=== PATIENT | female | born 1945 | race Caucasian/White ===

== ENCOUNTER → 2016-09-11 | Outpatient (CLI) | payer MEDICARE ==
[2016-09-11 13:00] LABS: ANION GAP 13 (5-19); BLOOD UREA NITROGEN 8 mg/dL (7-20); CALCIUM 9.5 mg/dL (8.4-10.2); CARBON DIOXIDE 28 mmol/L (22-30); CHLORIDE 101 mmol/L (98-107); CREATININE RESULT 0.79 mg/dL (0.52-1.25); GLUCOSE 83 mg/dL (75-110); POTASSIUM 4.4 mmol/L (3.6-5.0); SODIUM 141.6 mmol/L (137-145)
[2016-09-11 19:04] LABS: FREE T3 5.52 pg/mL (2.77-5.27)
== END ==
LOC: OD 10:40
PROVIDERS: ATTEND Family Medicine
DX: E03.9 Hypothyroidism, unspecified (principal); I10 Essential (primary) hypertension
CPT/HCPCS: 36415; 80048; 84439; 84481

== ENCOUNTER → 2016-12-05 | Outpatient (CLI) | payer MEDICARE ==
[2016-12-06 09:26] LABS: ABSOLUTE EOSINOPHILS # (AUTO) 0.1 10^3/uL (0.0-0.6); ABSOLUTE LYMPHOCYTES (AUTO) 2.2 10^3/uL (0.5-4.7); ABSOLUTE MONOCYTES (AUTO) 0.4 10^3/uL (0.1-1.4); ABSOLUTE NEUT (AUTO) 4.1 10^3/uL (1.7-8.2); BASOPHILS % (AUTO) 0.4 % (0-2); EOSINOPHILS % (AUTO) 1.3 % (0-6); HEMATOCRIT 40.7 % (36.0-47.0); HEMOGLOBIN 13.9 g/dL (12.0-15.5); LYMPHOCYTES % (AUTO) 31.9 % (13-45); MEAN CORPUSCULAR HEMOGLOBIN 31.8 pg (27.0-33.4); MEAN CORPUSCULAR HGB CONC 34.3 g/dL (32.0-36.0); MEAN CORPUSCULAR VOLUME 93 fl (80-97); MONOCYTES % (AUTO) 5.8 % (3-13); RED BLOOD COUNT 4.38 10^6/uL (3.72-5.28); RED CELL DISTRIBUTION WIDTH 14.1 % (11.5-14.0); SEGMENTED NEUTROPHILS % (AUTO) 60.6 % (42-78); WHITE BLOOD COUNT 6.8 10^3/uL (4.0-10.5)
[2016-12-06 09:51] LABS: ALANINE AMINOTRANSFERASE 23 U/L (9-52); ALBUMIN 3.6 g/dL (3.5-5.0); ALKALINE PHOSPHATASE 92 U/L (38-126); ANION GAP 9 (5-19); ASPARTATE AMINO TRANSFERASE 18 U/L (14-36); BILIRUBIN,DIRECT 0.1 mg/dL (0.0-0.4); BILIRUBIN,TOTAL 0.5 mg/dL (0.2-1.3); BLOOD UREA NITROGEN 10 mg/dL (7-20); CALCIUM 9.8 mg/dL (8.4-10.2); CARBON DIOXIDE 30 mmol/L (22-30); CHLORIDE 106 mmol/L (98-107); CHOLESTEROL 153.43 mg/dL (0-200); CREATININE RESULT 0.65 mg/dL (0.52-1.25); Direct HDL 49 mg/dL (>40); GLUCOSE 99 mg/dL (75-110); MAGNESIUM 2.2 mg/dL (1.6-2.3); POTASSIUM 5.2 mmol/L (3.6-5.0); SODIUM 144.9 mmol/L (137-145); TOTAL PROTEIN 6.1 g/dL (6.3-8.2); TRIGLYCERIDES 118 mg/dL (<150)
[2016-12-06 10:08] LABS: DIRECT LDL 84 mg/dL (<100)
[2016-12-06 10:13] LABS: FREE T3 2.25 pg/mL (2.77-5.27)
== END ==
LOC: OD 14:14
PROVIDERS: ATTEND Family Medicine
DX: E78.5 Hyperlipidemia, unspecified (principal); E87.6 Hypokalemia; E03.9 Hypothyroidism, unspecified; G31.84 Mild cognitive impairment of uncertain or unknown etiology; Z51.81 Encounter for therapeutic drug level monitoring; Z79.899 Other long term (current) drug therapy
CPT/HCPCS: 36415; 80053; 80061; 82607; 83735; 84439; 84481; 84630; 85025

== ENCOUNTER → 2016-12-09 | Outpatient (CLI) | payer MEDICARE | LOC: OD 11:28 | PROVIDERS: ATTEND Family Medicine | DX: J45.51 Severe persistent asthma with (acute) exacerbation (principal) | CPT/HCPCS: 87070; 87205 ==

== ENCOUNTER 2016-12-25 09:57 | Inpatient (IN) | payer MEDICARE ==
--- NOTE | 2016-12-25 10:17 | ER Document Report ---
ED Medical Screen (RME) - General Chief Complaint: Palpitations Stated Complaint: HEART PROBLEM Notes: 71-year-old female patient sent to the emergency room from Dr. Flanagan's office to be admitted to the hospitalist service. She reports tachycardia, chest pressure, some shortness of breath. She reports Thursday morning while making coffee she became quite dizzy and off-balance and lasted about one half hours. She reports since then she has just been feeling foggy headed. She does sleep with C Pap. She does have hypothyroidism and COPD. I have greeted and performed a rapid initial assessment of this patient. A comprehensive ED assessment and evaluation of the patient, analysis of test results and completion of the medical decision making process will be conducted by additional ED providers. TRAVEL OUTSIDE OF THE [place] IN LAST 30 DAYS: No - Related Data Allergies/Adverse Reactions: doxycycline [Doxycycline] Allergy (Severe, Verified 12/25/16 10:12) VOMITING Penicillins Allergy (Verified 12/25/16 10:12) Anaphylaxis OPIATES Allergy (Severe, Uncoded 12/25/16 10:12) Anaphylaxis Past Medical History - Past Medical History Cardiac Medical History: Reports: Hx Coronary Artery Disease, Hx Hypertension Denies: Hx Heart Attack Pulmonary Medical History: Reports: Hx Asthma - on home nebs & O2, Hx COPD Denies: Hx Bronchitis, Hx Pneumonia Neurological Medical History: Denies: Hx Cerebrovascular Accident, Hx Seizures Renal/ Medical History: Denies: Hx Peritoneal Dialysis GI Medical History: Denies: Hx Hepatitis, Hx Hiatal Hernia, Hx Ulcer Musculoskeltal Medical History: Reports Hx Arthritis - generalized Infectious Medical History: Denies: Hx Hepatitis Past Surgical History: Reports: Hx Mastectomy - DOUBLE, NO NEED TO AVOID ARM. Denies: Hx Hysterectomy, Hx Open Heart Surgery, Hx Pacemaker - Immunizations Hx Diphtheria, Pertussis, Tetanus Vaccination: No Physical Exam - Vital signs Vitals: Temp Pulse Resp BP Pulse Ox 97.7 F 93 22 H 118/71 93 12/25/16 10:10 12/25/16 10:10 12/25/16 10:10 12/25/16 10:10 12/25/16 10:10 Course - Vital Signs Vital signs: Temp Pulse Resp BP Pulse Ox 97.7 F 93 22 H 118/71 93 12/25/16 10:10 12/25/16 10:10 12/25/16 10:10 12/25/16 10:10 12/25/16 10:10
[2016-12-25 10:50] LABS: APPEARANCE,URINE CLEAR; BILIRUBIN,URINE NEGATIVE (NEGATIVE); GLUCOSE, URINE NEGATIVE (NEGATIVE); KETONES,URINE NEGATIVE (NEGATIVE); LEUKOCYTE ESTERASE,URINE SMALL (NEGATIVE); NITRITE,URINE NEGATIVE (NEGATIVE); PROTEIN,URINE NEGATIVE (NEGATIVE); URINE SPECIFIC GRAVITY 1.005; UROBILINOGEN,URINE NEGATIVE mg/dL (<2.0)
[2016-12-25 10:52] LABS: ABSOLUTE LYMPHOCYTES (AUTO) 2.8 10^3/uL (0.5-4.7); ABSOLUTE MONOCYTES (AUTO) 0.9 10^3/uL (0.1-1.4); ABSOLUTE NEUT (AUTO) 7.3 10^3/uL (1.7-8.2); BASOPHILS % (AUTO) 0.3 % (0-2); EOSINOPHILS % (AUTO) 0.3 % (0-6); HEMATOCRIT 44.3 % (36.0-47.0); HEMOGLOBIN 15.7 g/dL (12.0-15.5); HGB HCT DIFFERENCE 2.8; LYMPHOCYTES % (AUTO) 25.1 % (13-45); MEAN CORPUSCULAR HGB CONC 35.4 g/dL (32.0-36.0); MEAN CORPUSCULAR VOLUME 90 fl (80-97); MONOCYTES % (AUTO) 8.2 % (3-13); RED CELL DISTRIBUTION WIDTH 13.8 % (11.5-14.0); SEGMENTED NEUTROPHILS % (AUTO) 66.1 % (42-78); WHITE BLOOD COUNT 11.1 10^3/uL (4.0-10.5)
[2016-12-25 11:07] LABS: ALANINE AMINOTRANSFERASE 26 U/L (9-52); ALBUMIN 3.8 g/dL (3.5-5.0); ALKALINE PHOSPHATASE 110 U/L (38-126); ANION GAP 13 (5-19); ASPARTATE AMINO TRANSFERASE 22 U/L (14-36); BILIRUBIN,DIRECT 0.1 mg/dL (0.0-0.4); BILIRUBIN,TOTAL 0.6 mg/dL (0.2-1.3); BLOOD UREA NITROGEN 16 mg/dL (7-20); CALCIUM 9.1 mg/dL (8.4-10.2); CARBON DIOXIDE 33 mmol/L (22-30); CHLORIDE 78 mmol/L (98-107); CREATININE RESULT 0.68 mg/dL (0.52-1.25); GLUCOSE 96 mg/dL (75-110); SODIUM 124.2 mmol/L (137-145); TOTAL PROTEIN 6.3 g/dL (6.3-8.2)
[2016-12-25 11:09] LABS: POTASSIUM 2.6 mmol/L (3.6-5.0)
[2016-12-25 11:22] LABS: FREE T3 5.45 pg/mL (2.77-5.27)
[2016-12-25] MEDS ORDERED: POTASSI CL 40 MEQ/NS 1L 1,000 ML IV ONE (11:40)
--- NOTE | 2016-12-25 11:48 | ER Document Report ---
ED General - General Chief Complaint: Palpitations Stated Complaint: HEART PROBLEM Notes: Patient was referred here by her primary care provider, Dr. Flanagan, for admission for several problems. Patient says that she's not felt well over this past weekend and then on Thursday developed a rapid pulse. At times, it has gotten as high as 123. She says that she's felt "drunk, goofy headed", nauseated, blurry vision. She went to her primary care provider's office this morning and was referred here. Patient does have a history of low sodiums and low potassiums and is on potassium supplement and extra sodium in her diet. She 's felt nauseated but has not vomited. Had one episode of diarrhea on Thursday. She's having chest pressure since Thursday. It's a fairly constant mid anterior chest sensation, but not actual pain. Has had some cough and felt short of breath. Patient does have COPD and continues to smoke slightly less than a pack of cigarettes daily. She is unaware of any fever. Was treated with an antibiotic and prednisone for a respiratory illness and completed that medication on Thursday. TRAVEL OUTSIDE OF THE [place] IN LAST 30 DAYS: No - Related Data Allergies/Adverse Reactions: doxycycline [Doxycycline] Allergy (Severe, Verified 12/25/16 10:12) VOMITING Penicillins Allergy (Verified 12/25/16 10:12) Anaphylaxis OPIATES Allergy (Severe, Uncoded 12/25/16 10:12) Anaphylaxis Past Medical History - Social History Smoking Status: Current Every Day Smoker Chew tobacco use (# tins/day): No Frequency of alcohol use: None Drug Abuse: None Family History: Reviewed & Not Pertinent Patient has suicidal ideation: No Patient has homicidal ideation: No - Past Medical History Cardiac Medical History: Reports: Hx Coronary Artery Disease, Hx Hypertension Denies: Hx Heart Attack Pulmonary Medical History: Reports: Hx Asthma - on home nebs & O2, Hx Bronchitis , Hx COPD Denies: Hx Pneumonia Neurological Medical History: Denies: Hx Cerebrovascular Accident, Hx Seizures Malignancy Medical History: Reports: Hx Breast Cancer, Hx Colorectal Cancer, Other - Vulvar cancer Musculoskeltal Medical History: Reports Hx Arthritis - generalized Psychiatric Medical History: Reports: Hx Depression Past Surgical History: Reports: Hx Cholecystectomy, Hx Mastectomy - DOUBLE, NO NEED TO AVOID ARM, Other - History of surgery for vulvar and colon cancer, currently cancer free - Immunizations Hx Diphtheria, Pertussis, Tetanus Vaccination: No Hx Pneumococcal Vaccination: 09/07/11 Review of Systems - Review of Systems Notes: REVIEW OF SYSTEMS: CONSTITUTIONAL : Denies fever. EENT: Denies eye, ear, nose or mouth or throat pain or other symptoms. CARDIOVASCULAR: See history of present illness. RESPIRATORY: See history of present illness. GASTROINTESTINAL: Denies abdominal pain or vomiting, or diarrhea except for 1 episode Thursday.. GENITOURINARY: Denies difficulty or painful urinating, blood in urine. MUSCULOSKELETAL: Denies back or neck pain. Denies joint pain or swelling. SKIN: Denies rash or skin lesions. NEUROLOGICAL: Denies LOC or altered mental status. Denies headache. Denies sensory loss or motor deficits. See history of present illness. ALL OTHER SYSTEMS REVIEWED AND NEGATIVE. Physical Exam - Vital signs Vitals: Temp Pulse Resp BP Pulse Ox 97.7 F 93 22 H 118/71 93 12/25/16 10:10 12/25/16 10:10 12/25/16 10:10 12/25/16 10:10 12/25/16 10:10 Interpretation: Normal - Notes Notes: PHYSICAL EXAMINATION: GENERAL: Well-appearing, in no acute distress. Vital signs are all normal. Heart rate 94 on the monitor during my exam. HEAD: Atraumatic, normocephalic. NECK: Normal range of motion, supple. LUNGS: Breath sounds show diffuse mild expiratory wheezes. HEART: Regular rate and rhythm without murmurs. ABDOMEN: Soft, nontender. No guarding or rebound. BACK: No tenderness throughout entire back. EXTREMITIES: Normal range of motion without pain. Trace pretibial pitting edema bilaterally. NEUROLOGICAL: Normal speech. Normal sensory, motor, and reflex exams. Awake, alert, and oriented x3. Cranial nerves normal. PSYCH: Normal mood, normal affect. SKIN: Warm, dry, no rashes. Course - Re-evaluation Re-evalutation: 12/25/16 11:55 Labs show hyponatremia and hypokalemia and I will be calling the hospitalist to admit patient. 12/25/16 12:[address] Iqbal, on-call hospitalist, and he will admit the patient for IV fluids and replenishment of her sodium and potassium. - Vital Signs Vital signs: Temp Pulse Resp BP Pulse Ox 97.7 F 93 22 H 118/71 93 12/25/16 10:10 12/25/16 10:10 12/25/16 10:10 12/25/16 10:10 12/25/16 10:10 - Laboratory Result Diagrams: 12/25/16 10:19 12/25/16 10:19 Laboratory results interpreted by me: 12/25/16 12/25/16 12/25/16 10:19 10:19 10:19 WBC 11.1 H Hgb 15.7 H Sodium 124.2 L Potassium 2.6 L* Chloride 78 L Carbon Dioxide 33 H Free T3 pg/mL 5.45 H Ur Leukocyte Esterase 12/25/16 10:19 WBC Hgb Sodium Potassium Chloride Carbon Dioxide Free T3 pg/mL Ur Leukocyte Esterase SMALL H - Diagnostic Test Radiology results interpreted by me: 12/25/16 11:55 Chest x-ray shows some basilar atelectasis. Findings consistent with COPD. No acute processes noted. - EKG Interpretation by Ne EKG shows normal: Sinus rhythm - At 90 Rate: Normal Rhythm: NSR, APC's - Few Additional EKG results interpreted by me: 12/25/16 11:54 EKG does not show any acute changes. Discharge - Discharge Clinical Impression: Palpitations, Hyponatremia, Hypokalemia Disposition: ADMITTED INPATIENT Admitting Provider: Hospitalist Unit Admitted: Telemetry
[2016-12-25] MEDS ORDERED: AZTREONAM INJ 1 GM VIAL IV SCH (14:15)
[2016-12-25] MEDS ORDERED: NORMAL SALINE 1000 ML 1,000 ML IV PRN (14:18)
[2016-12-25] MEDS ORDERED: LEVALBUTEROL HCL NEB 1.25 MG/3 ML AMPUL NEB PRN (14:18)
[2016-12-25] MEDS ORDERED: ACETAMINOPHEN 325 MG TABLET PO PRN (14:18)
[2016-12-25] MEDS ORDERED: ONDANSETRON HCL INJ/PF 4 MG/2 ML SDV IV PRN (14:24)
[2016-12-25] MEDS ORDERED: TIOTROPIUM BROMIDE DPI 5 CAP/KIT (18 MCG/CAP) IH ONE (15:00)
[2016-12-25] MEDS ORDERED: AZTREONAM 1 GM in DEXTROSE 5%-WATER 50 ML IV ONE (15:00)
[2016-12-25] MEDS ORDERED: FLUTICASONE/SALMETEROL DISKUS 250-50 MCG/DOSE IH ONE (15:30)
[2016-12-25] MEDS: POTASSIUM CHLORIDE 10 MEQ TABLET.SA PO SCH ×2 (15:49→20:59)
--- NOTE | 2016-12-25 15:54 | PDOC H&P ---
History of Present Illness Admission Date/PCP: 12/25/16 14:18 SHERMAN MCCLAIN MD Patient complains of: Palpitations History of Present Illness: JOHAN WREN is a 71 year old female with history of COPD who just completed a course of treatment for respiratory tract infection with antibiotic last weekend presents to the hospital because of palpitation. Patient had an episode of diarrhea last weekend that eventually resolved by itself. 4 days ago patient started to develop palpitation, generalized weakness, body malaise and fatigue, lightheadedness and dizziness upon standing up. Denies any persistence of diarrhea. There is no dysuria urgency or frequency but there is nausea without vomiting. No chills or fever associated. Occasional mild headaches. No shortness of breath, no chest pain. Patient started to develop palpitation. Patient presented to her primary care physician where she was sent to the hospital, found to be hypokalemic and hyponatremic. WBC is mildly elevated. Patient initially has sinus tachycardia as reported, intravenous fluid was given, heart rate has normalized. Patient was then referred for admission. Past Medical History Past Medical History: Medication reconciliation pending verification from the patient's pharmacist. Cardiac Medical History: Reports: Hypertension, Other - Valvular heart disease Denies: Myocardial Infarction Pulmonary Medical History: Reports: Asthma - on home nebs & O2, Bronchitis, Chronic Obstructive Pulmonary Disease (COPD), Respiratory Failure - Chronic hypoxemic on home oxygen, Sleep Apnea - On CPAP, Other - Lung nodule Denies: Pneumonia Neurological Medical History: Reports: Other - Depression Denies: Seizures Endocrine Medical History: Reports: Hypothyroidism Malignancy Medical History: Reports: Breast Cancer, Colorectal Cancer, Other - Vulvar cancer GI Medical History: Denies: Hepatitis, Hiatal Hernia Musculoskeltal Medical History: Reports: Arthritis - generalized Psychiatric Medical History: Reports: Depression Hematology: Denies: Anemia, Sickle Cell Disease Past Surgical History Past Surgical History: Reports: Cholecystectomy, Mastectomy - DOUBLE, NO NEED TO AVOID ARM, Other - History of surgery for vulvar and colon cancer, currently cancer free Denies: Amputation, Hysterectomy, Pacemaker Social History Information Source: Patient Smoking Status: Current Every Day Smoker Frequency of Alcohol Use: None Hx Recreational Drug Use: No Drugs: None Hx Prescription Drug Abuse: No - Advance Directive Resuscitation Status: Full Code Family History Family History: CAD Parental Family History Reviewed: Yes Children Family History Reviewed: Yes Sibling(s) Family History Reviewed.: Yes Medication/Allergy Home Medications: Albuterol Sulfate [Albuterol Sulfate 2.5mg/3 mL] 1 vial NEB QID 12/25/16 Albuterol Sulfate [Proair HFA Inhalation Aerosol 8.5 gm MDI] 2 puff IH Q4H 12/25 Arformoterol Tartrate [Brovana Inhalation Solution 15 mcg/2 mL] 1 vial NEB BID 12/25/16 Ascorbic Acid [Vitamin C 500 mg Tablet] 1 tab PO DAILY 12/25/16 Aspirin [Aspirin EC] 81 mg PO DAILY 12/25/16 Citalopram Hydrobromide [Celexa 20 mg Tablet] 20 mg PO DAILY 12/25/16 Docusate Sodium [Colace 100 mg Capsule] 100 mg PO BID 12/25/16 Furosemide [Lasix] 40 mg PO DAILY 12/25/16 Hydrochlorothiazide 25 mg PO DAILY 12/25/16 Losartan Potassium [Cozaar 25 mg Tablet] 25 mg PO DAILY 12/25/16 Naproxen 500 mg PO BIDP PRN 12/25/16 Nortriptyline HCl [Pamelor 25 mg Capsule] 25 mg PO QHS 12/25/16 [place]-3 Fatty Acids/Fish Oil [[place] 3 Fish Oil Softgel] 1 cap PO DAILY 12/25/16 Pravastatin Sodium [Pravachol] 40 mg PO QHS 12/25/16 Thyroid,Pork [Echo Thyroid] 30 mg PO DAILY 12/25/16 Thyroid,Pork [Echo Thyroid] 120 mg PO DAILY 12/25/16 Vitamin E [Natural Vitamin E] 400 mg PO DAILY 12/25/16 Allergies/Adverse Reactions: doxycycline [Doxycycline] Allergy (Severe, Verified 12/25/16 10:12) VOMITING Opioids - Morphine Analogues Allergy (Severe, Verified 12/25/16 15:03) Anaphylaxis Penicillins Allergy (Verified 12/25/16 10:12) Anaphylaxis Review of Systems Constitutional: PRESENT: weakness - Generalized. ABSENT: chills, fever(s), headache(s), weight gain, weight loss Eyes: ABSENT: visual disturbances Ears: ABSENT: hearing changes Nose, Mouth, and Throat: ABSENT: mouth pain, sore throat Cardiovascular: PRESENT: dyspnea on exertion - Chronic, edema - Chronic bilateral, palpitations. ABSENT: chest pain, orthropnea Respiratory: PRESENT: cough - Chronic cough not more than usual, dyspnea - Chronic on home oxygen, other - Chronic wheezing. ABSENT: hemoptysis, sputum Gastrointestinal: PRESENT: nausea. ABSENT: abdominal pain, constipation, diarrhea, hematemesis, hematochezia, melena, vomiting Genitourinary: ABSENT: difficulty urinating, dysuria, hematuria Musculoskeletal: ABSENT: joint swelling Integumentary: ABSENT: pruritus, rash, wounds Neurological: PRESENT: dizziness - Understanding. ABSENT: abnormal gait, abnormal speech, confusion, focal weakness, syncope Psychiatric: ABSENT: anxiety, depression, homidical ideation, suicidal ideation Endocrine: PRESENT: polyphagia. ABSENT: cold intolerance, heat intolerance, polydipsia, polyuria Hematologic/Lymphatic: ABSENT: easy bleeding, easy bruising Physical Exam Vital Signs: Temp Pulse Resp BP Pulse Ox 98.2 F 92 20 101/64 95 12/25/16 14:10 12/25/16 14:10 12/25/16 14:10 12/25/16 14:10 12/25/16 14:10 General appearance: PRESENT: no acute distress, morbidly obese Head exam: PRESENT: atraumatic, normocephalic Eye exam: PRESENT: conjunctiva pink, EOMI, PERRLA. ABSENT: scleral icterus Ear exam: PRESENT: normal external ear exam. ABSENT: drainage Mouth exam: PRESENT: dry mucosa, neck supple, tongue midline Throat exam: ABSENT: post pharyngeal erythema, tonsillar erythema, tonsillar exudate Neck exam: ABSENT: carotid bruit, JVD, lymphadenopathy, thyromegaly Respiratory exam: PRESENT: decreased breath sounds - Bilateral, wheezes - Mild expiratory, other - Air entry is fair. ABSENT: rales, rhonchi Cardiovascular exam: PRESENT: RRR, +S1, +S2. ABSENT: diastolic murmur, gallop, rubs, systolic murmur Pulses: PRESENT: normal dorsalis pedis pul Vascular exam: PRESENT: normal capillary refill GI/Abdominal exam: PRESENT: normal bowel sounds, soft. ABSENT: distended - Obese, guarding, mass, organolmegaly, rebound, tenderness Rectal exam: PRESENT: deferred Extremities exam: PRESENT: full ROM, other - Trace lower extremity edema bilateral. ABSENT: calf tenderness, clubbing Neurological exam: PRESENT: alert, awake, oriented to person, oriented to place , oriented to time, oriented to situation Psychiatric exam: PRESENT: appropriate affect, normal mood. ABSENT: homicidal ideation, suicidal ideation Skin exam: PRESENT: dry, intact, warm. ABSENT: cyanosis, rash Results Impressions: Chest X-Ray 12/25/16 10:13 IMPRESSION: Linear atelectasis in the left base. Hyperexpansion. Assessment & Plan - Diagnosis (1) Hyponatremia Is this a current diagnosis for this admission?: Yes (2) Hypokalemia Is this a current diagnosis for this admission?: Yes (3) Palpitations Is this a current diagnosis for this admission?: Yes (4) Dehydration Is this a current diagnosis for this admission?: Yes (5) Urinary tract infection Qualifiers: Urinary tract infection type: site unspecified Hematuria presence: without hematuria Qualified Code(s): N39.0 - Urinary tract infection, site not specified Is this a current diagnosis for this admission?: Yes (6) Hypothyroidism (acquired) Is this a current diagnosis for this admission?: Yes (7) Obstructive sleep apnea Is this a current diagnosis for this admission?: Yes (8) COPD (chronic obstructive pulmonary disease) Qualifiers: COPD type: unspecified COPD Qualified Code(s): J44.9 - Chronic obstructive pulmonary disease, unspecified Is this a current diagnosis for this admission?: Yes (9) Chronic hypoxemic respiratory failure Is this a current diagnosis for this admission?: Yes (10) Valvular heart disease Is this a current diagnosis for this admission?: Yes (11) Anxiety and depression Is this a current diagnosis for this admission?: Yes (12) Essential hypertension Is this a current diagnosis for this admission?: Yes (13) Lung nodule Is this a current diagnosis for this admission?: Yes - Time Time Spent: 30 to 50 Minutes - Inpatient Certification Based on my medical assessment, after consideration of the patient's comorbidities, presenting symptoms, or acuity I expect that the services needed warrant INPATIENT care.: Yes I certify that my determination is in accordance with my understanding of Medicare's requirements for reasonable and necessary INPATIENT services [42 CFR 412.3e].: Yes Medical Necessity: Need Close Monitoring Due to Risk of Patient Decompensation, Need For IV Fluids, Need For Continuous Telemetry Monitoring, Risk of Complication if Not Cared For in Hospital 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 We are going to hydrate the patient with normal saline. We will replace potassium. Obtain a urine culture and begin intravenous antibiotic over for gram-negative organisms. In the meantime I will continue her supplemental oxygen and try her on Advair. Continue Spiriva. When necessary Xopenex for wheezing. We will check TSH and free T4. DVT prophylaxis with Lovenox will be placed. We will hold her antihypertensive medications. Diuretics in combination with ARB likely contributing to her hyponatremia. We will monitor. Discussed with the patient that antihypertensive medication may need to be discontinued. DVT prophylaxis with Lovenox will be placed. Further testing depends on the initial evaluation as outlined above.
[2016-12-25] MEDS: LANSOPRAZOLE 30 MG TAB.RAP.DR PO SCH (17:51)
[2016-12-25] MEDS: DOCUSATE SODIUM 100 MG CAPSULE PO SCH (17:52)
--- NOTE | 2016-12-25 20:04 | EKG REPORT ---
SEVERITY:- BORDERLINE ECG - SINUS RHYTHM ATRIAL PREMATURE COMPLEX LEFT AXIS DEVIATION LOW VOLTAGE IN FRONTAL LEADS BORDERLINE T ABNORMALITIES, ANT-LAT LEADS : Confirmed by: Niki Sarabia MD 25-Dec-2016 20:04:03
[2016-12-25] MEDS: AZTREONAM 1 GM in DEXTROSE 5%-WATER 50 ML IV SCH (22:26)
[2016-12-26] MEDS: POTASSIUM CHLORIDE 10 MEQ TABLET.SA PO SCH (00:24)
[2016-12-26 05:28] LABS: HEMATOCRIT 39.4 % (36.0-47.0); HEMOGLOBIN 13.7 g/dL (12.0-15.5); HGB HCT DIFFERENCE 1.7; MEAN CORPUSCULAR HEMOGLOBIN 31.8 pg (27.0-33.4); MEAN CORPUSCULAR HGB CONC 34.8 g/dL (32.0-36.0); MEAN CORPUSCULAR VOLUME 91 fl (80-97); RED BLOOD COUNT 4.31 10^6/uL (3.72-5.28); WHITE BLOOD COUNT 9.3 10^3/uL (4.0-10.5)
[2016-12-26 05:59] LABS: ANION GAP 9 (5-19); BLOOD UREA NITROGEN 16 mg/dL (7-20); CALCIUM 8.8 mg/dL (8.4-10.2); CARBON DIOXIDE 33 mmol/L (22-30); CHLORIDE 92 mmol/L (98-107); CREATININE RESULT 0.67 mg/dL (0.52-1.25); GLUCOSE 101 mg/dL (75-110); PHOSPHORUS 2.6 mg/dL (2.5-4.5); SODIUM 133.9 mmol/L (137-145)
[2016-12-26 06:22] LABS: POTASSIUM 4.2 mmol/L (3.6-5.0)
[2016-12-26] MEDS: LANSOPRAZOLE 30 MG TAB.RAP.DR PO SCH (07:09)
[2016-12-26] MEDS: AZTREONAM 1 GM in DEXTROSE 5%-WATER 50 ML IV SCH ×2 (07:10→14:24)
[2016-12-26] MEDS ORDERED: ENOXAPARIN SODIUM INJ 40 MG/0.4 ML DISP.SYRIN SUBCUT SCH (08:00)
[2016-12-26] MEDS ORDERED: FLUTICASONE/SALMETEROL DISKUS 250-50 MCG/DOSE IH SCH (10:00)
[2016-12-26] MEDS ORDERED: TIOTROPIUM BROMIDE DPI 5 CAP/KIT (18 MCG/CAP) IH SCH (10:00)
[2016-12-26] MEDS: DOCUSATE SODIUM 100 MG CAPSULE PO SCH (11:07)
--- NOTE | 2016-12-26 11:38 | PDOC DISCHARGE SUMMARY ---
General - Admit/Disc Date/PCP Admission Date/Primary Care Provider: 12/25/16 14:18 SHERMAN MCCLAIN MD Discharge Date: 12/26/16 - Discharge Diagnosis (1) Hyponatremia Is this a current diagnosis for this admission?: Yes (2) Hypokalemia Is this a current diagnosis for this admission?: Yes (3) Palpitations Is this a current diagnosis for this admission?: Yes (4) Dehydration Is this a current diagnosis for this admission?: Yes (5) Urinary tract infection Is this a current diagnosis for this admission?: Yes (6) Hypothyroidism (acquired) Is this a current diagnosis for this admission?: Yes (7) Obstructive sleep apnea Is this a current diagnosis for this admission?: Yes (8) COPD (chronic obstructive pulmonary disease) Is this a current diagnosis for this admission?: Yes (9) Chronic hypoxemic respiratory failure Is this a current diagnosis for this admission?: Yes (10) Valvular heart disease Is this a current diagnosis for this admission?: Yes (11) Anxiety and depression Is this a current diagnosis for this admission?: Yes (12) Essential hypertension Is this a current diagnosis for this admission?: Yes (13) Lung nodule Is this a current diagnosis for this admission?: Yes - Additional Information Resuscitation Status: Full Code Discharge Diet: Cardiac Discharge Activity: Activity As Tolerated, Balance Activity w/Rest Home Medications: Albuterol Sulfate [Albuterol Sulfate 2.5mg/3 mL] 1 vial NEB QID 12/25/16 Albuterol Sulfate [Proair HFA Inhalation Aerosol 8.5 gm MDI] 2 puff IH Q4H 12/25 Arformoterol Tartrate [Brov[place] Inhalation Solution 15 mcg/2 mL] 1 vial NEB BID 12/25/16 Ascorbic Acid [Vitamin C 500 mg Tablet] 1 tab PO DAILY 12/25/16 Aspirin [Aspirin EC] 81 mg PO DAILY 12/25/16 Citalopram Hydrobromide [Celexa 20 mg Tablet] 20 mg PO DAILY 12/25/16 Docusate Sodium [Colace 100 mg Capsule] 100 mg PO BID 12/25/16 Furosemide [Lasix] 40 mg PO DAILY 12/25/16 Naproxen 500 mg PO BIDP PRN 12/25/16 Nortriptyline HCl [Pamelor 25 mg Capsule] 25 mg PO QHS 12/25/16 [place]-3 Fatty Acids/Fish Oil [[place] 3 Fish Oil Softgel] 1 cap PO DAILY 12/25/16 Pravastatin Sodium [Pravachol] 40 mg PO QHS 12/25/16 Thyroid,Pork [[place] Thyroid] 30 mg PO DAILY 12/25/16 Thyroid,Pork [[place] Thyroid] 120 mg PO DAILY 12/25/16 Vitamin E [Natural Vitamin E] 400 mg PO DAILY 12/25/16 Ciprofloxacin HCl [Cipro 500 mg Tablet] 500 mg PO BID #6 tablet 12/26/16 Metoprolol Tartrate [Lopressor 25 mg Tablet] 25 mg PO Q12 #60 tab 12/26/16 Additional Information: 1. Follow up final report of urine cultures outpatient with primary care physician. 2. Return to the emergency room if symptoms recur. 3. Continue home oxygen and CPAP. History of Present Illness Patient complains of: Palpitation, generalized malaise History of Present Illness: JOHAN WREN is a 71 year old female with history of COPD who just completed a course of treatment for respiratory tract infection with antibiotic last weekend presents to the hospital because of palpitation. Patient had an episode of diarrhea last weekend that eventually resolved by itself. 4 days ago patient started to develop palpitation, generalized weakness, body malaise and fatigue, lightheadedness and dizziness upon standing up. Denies any persistence of diarrhea. There is no dysuria urgency or frequency but there is nausea without vomiting. No chills or fever associated. Occasional mild headaches. No shortness of breath, no chest pain. Patient started to develop palpitation. Patient presented to her primary care physician where she was sent to the hospital, found to be hypokalemic and hyponatremic. WBC is mildly elevated. Patient initially has sinus tachycardia as reported, intravenous fluid was given, heart rate has normalized. Patient was then referred for admission. Hospital Course Hospital Course: The patient was admitted to telemetry. TSH was high, but free T4 is normal. Patient had short episodes of tachycardia that responded with hydration. Patient noted to have hyponatremia as well as hypokalemia which replacement was given. Hyponatremia significantly improve with normal saline, hypokalemia normalized with replacement. She was noted to have a urinary tract infection growing gram-positive cocci in pairs. No prior history of recurrent UTI. Patient was started on Azactam. The following morning the patient is significantly better. Patient wanted to go home, continue treatment at home and follow-up with primary care physician. Patient was advised to discontinue the hydrochlorothiazide as well as losartan. Patient wants to continue the Lasix for her edema, treated recommendation of frequent follow-up of electrolytes. She agreed to try beta francis for hypertension and palpitation and follow-up blood pressure on an outpatient basis. Physical Exam Vital Signs: Temp Pulse Resp BP Pulse Ox 97.8 F 84 22 H 120/55 L 99 12/26/16 08:26 12/26/16 08:26 12/26/16 08:26 12/26/16 08:26 12/26/16 08:26 Intake & Output 12/25/16 12/26/16 12/27/16 06:59 06:59 06:59 Intake Total 1924 Balance 1924 Weight 110.3 kg General appearance: PRESENT: no acute distress, cooperative, obese Eye exam: PRESENT: EOMI Mouth exam: PRESENT: moist, neck supple Neck exam: ABSENT: JVD Respiratory exam: PRESENT: clear to auscultation maria a Cardiovascular exam: PRESENT: RRR. ABSENT: gallop GI/Abdominal exam: PRESENT: soft. ABSENT: distended, tenderness Extremities exam: PRESENT: other - Trace edema Neurological exam: PRESENT: alert, awake, oriented to situation Skin exam: PRESENT: dry, warm. ABSENT: cyanosis Results Laboratory Results: 12/26/16 05:18 12/26/16 05:18 12/26/16 12/26/16 05:18 05:18 WBC 9.3 RBC 4.31 Hgb 13.7 Hct 39.4 MCV 91 MCH 31.8 MCHC 34.8 RDW 14.0 Plt Count 176 Sodium 133.9 L Potassium 4.2 D Chloride 92 L Carbon Dioxide 33 H Anion Gap 9 BUN 16 Creatinine 0.67 Est GFR ( Amer) > 60 Est GFR (Non-Af Amer) > 60 Glucose 101 Calcium 8.8 Phosphorus 2.6 Impressions: Chest X-Ray 12/25/16 10:13 IMPRESSION: Linear atelectasis in the left base. Hyperexpansion. Qualifiers PATEINT BEING DISCHARGED WITH ANY OF THE FOLLOWING DIAGNOSIS?: No Plan Discharge Plan: Follow-up with primary care physician in one week. Time Spent: Less than 30 Minutes
[2016-12-26 15:01] VITALS: BP 109/59
== END 2016-12-26 15:02 | disposition home or self-care (01) | DRG 641 ==
LOC: ER 09:57 → UNDOADMIN 13:38 → EH 13:38 → 4S 14:18 → EH 14:45 → 4S 14:45
PROC: 5A09357 Assistance with Respiratory Ventilation, Less than 24 Consecutive Hours, Continuous Positive Airway Pressure (ICD-10-PCS; principal; 2016-12-25)
PROC: 3E0F73Z Introduction of Anti-inflammatory into Respiratory Tract, Via Natural or Artificial Opening (ICD-10-PCS; 2016-12-25)
DX: E87.1 Hypo-osmolality and hyponatremia (principal); N39.0 Urinary tract infection, site not specified; J96.11 Chronic respiratory failure with hypoxia; I38 Endocarditis, valve unspecified; I95.1 Orthostatic hypotension; E87.6 Hypokalemia; E86.0 Dehydration; R00.2 Palpitations; E03.9 Hypothyroidism, unspecified; G47.33 Obstructive sleep apnea (adult) (pediatric); J44.9 Chronic obstructive pulmonary disease, unspecified; F41.9 Anxiety disorder, unspecified; F32.9 Major depressive disorder, single episode, unspecified; R91.1 Solitary pulmonary nodule; I10 Essential (primary) hypertension; M19.90 Unspecified osteoarthritis, unspecified site; F17.200 Nicotine dependence, unspecified, uncomplicated; Z99.81 Dependence on supplemental oxygen; Z79.899 Other long term (current) drug therapy; Z85.3 Personal history of malignant neoplasm of breast; Z85.038 Personal history of other malignant neoplasm of large intestine; Z85.89 Personal history of malignant neoplasm of other organs and systems; Z90.49 Acquired absence of other specified parts of digestive tract; Z90.13 Acquired absence of bilateral breasts and nipples; Z88.0 Allergy status to penicillin; Z88.3 Allergy status to other anti-infective agents; Z88.6 Allergy status to analgesic agent
CPT/HCPCS: 36415; 71010; 80048; 80053; 81001; 83735; 83880; 84100; 84439; 84443; 84481; 85025; 85027; 85379; 87086; 87088; 87186; 93005; 93010; 94660; 96365; 99285; J1650; J3480; J3490; J7030

== ENCOUNTER → 2017-01-02 | Outpatient (CLI) | payer MEDICARE ==
[2017-01-02 10:07] LABS: ANION GAP 13 (5-19); BLOOD UREA NITROGEN 11 mg/dL (7-20); CALCIUM 9.3 mg/dL (8.4-10.2); CARBON DIOXIDE 31 mmol/L (22-30); CHLORIDE 102 mmol/L (98-107); CREATININE RESULT 0.73 mg/dL (0.52-1.25); GLUCOSE 89 mg/dL (75-110); POTASSIUM 4.1 mmol/L (3.6-5.0); SODIUM 145.6 mmol/L (137-145)
== END ==
LOC: OD 08:02
PROVIDERS: ATTEND Family Medicine
DX: D35.00 Benign neoplasm of unspecified adrenal gland (principal); E87.1 Hypo-osmolality and hyponatremia
CPT/HCPCS: 36415; 80048; 82533

== ENCOUNTER → 2017-01-08 | Outpatient (CLI) | payer MEDICARE ==
[2017-01-08 12:54] LABS: ANION GAP 16 (5-19); BLOOD UREA NITROGEN 10 mg/dL (7-20); CARBON DIOXIDE 26 mmol/L (22-30); CHLORIDE 102 mmol/L (98-107); CREATININE RESULT 0.83 mg/dL (0.52-1.25); GLUCOSE 140 mg/dL (75-110); POTASSIUM 4.6 mmol/L (3.6-5.0); SODIUM 144.2 mmol/L (137-145)
== END ==
LOC: OD 11:24
PROVIDERS: ATTEND Family Medicine
DX: E87.1 Hypo-osmolality and hyponatremia (principal)
CPT/HCPCS: 36415; 80048

== ENCOUNTER → 2017-01-29 | Outpatient (CLI) | payer MEDICARE ==
[2017-01-29 09:46] LABS: POTASSIUM 4.1 mmol/L (3.6-5.0); SODIUM 140.5 mmol/L (137-145)
== END ==
LOC: OD 08:27
PROVIDERS: ATTEND Family Medicine
DX: E87.1 Hypo-osmolality and hyponatremia (principal)
CPT/HCPCS: 36415; 80051

== ENCOUNTER → 2017-03-02 | Outpatient (CLI) | payer MEDICARE ==
[2017-03-02 13:25] LABS: ALANINE AMINOTRANSFERASE 22 U/L (9-52); ALBUMIN 3.9 g/dL (3.5-5.0); ALKALINE PHOSPHATASE 104 U/L (38-126); ANION GAP 13 (5-19); ASPARTATE AMINO TRANSFERASE 24 U/L (14-36); BILIRUBIN,DIRECT 0.4 mg/dL (0.0-0.4); BILIRUBIN,TOTAL 0.7 mg/dL (0.2-1.3); BLOOD UREA NITROGEN 10 mg/dL (7-20); CARBON DIOXIDE 26 mmol/L (22-30); CHLORIDE 102 mmol/L (98-107); FREE T3 4.9 pg/mL (2.77-5.27); GLUCOSE 99 mg/dL (75-110); POTASSIUM 4.3 mmol/L (3.6-5.0); SODIUM 140.5 mmol/L (137-145)
[2017-03-02 13:41] LABS: HEMATOCRIT 48.7 % (36.0-47.0); HGB HCT DIFFERENCE -0.7; MEAN CORPUSCULAR HEMOGLOBIN 31.3 pg (27.0-33.4); MEAN CORPUSCULAR HGB CONC 32.9 g/dL (32.0-36.0); MEAN CORPUSCULAR VOLUME 95 fl (80-97); RED BLOOD COUNT 5.11 10^6/uL (3.72-5.28); RED CELL DISTRIBUTION WIDTH 13.4 % (11.5-14.0); WHITE BLOOD COUNT 8.4 10^3/uL (4.0-10.5)
[2017-03-02 13:44] LABS: BASOPHILS % (MANUAL) 1 % (0-2); EOSINOPHILS % (MANUAL) 1 % (0-6); LYMPHOCYTES % (MANUAL) 18 % (13-45); PLATELET CLUMPS PRESENT; POLYCHROMASIA SLIGHT; TOTAL CELLS COUNTED 100; TOXIC GRANULATION SLIGHT; TOXIC VACUOLATION PRESENT
[2017-03-03 18:02] LABS: PATH REVIEW PATHOLOGIST REVIEWED
== END ==
LOC: OD 11:39
PROVIDERS: ATTEND Family Medicine
DX: E03.9 Hypothyroidism, unspecified (principal); Z79.899 Other long term (current) drug therapy; J45.51 Severe persistent asthma with (acute) exacerbation
CPT/HCPCS: 36415; 80053; 84439; 84481; 85025; 87070; 87205

== ENCOUNTER → 2017-03-28 | Outpatient (CLI) | payer MEDICARE ==
[2017-03-28 09:24] LABS: ABSOLUTE EOSINOPHILS # (AUTO) 0.1 10^3/uL (0.0-0.6); ABSOLUTE LYMPHOCYTES (AUTO) 1.9 10^3/uL (0.5-4.7); ABSOLUTE MONOCYTES (AUTO) 0.4 10^3/uL (0.1-1.4); ABSOLUTE NEUT (AUTO) 3.9 10^3/uL (1.7-8.2); BASOPHILS % (AUTO) 0.6 % (0-2); EOSINOPHILS % (AUTO) 1.6 % (0-6); HEMATOCRIT 44.4 % (36.0-47.0); HEMOGLOBIN 15.1 g/dL (12.0-15.5); HGB HCT DIFFERENCE 0.9; MEAN CORPUSCULAR HEMOGLOBIN 32.4 pg (27.0-33.4); MEAN CORPUSCULAR HGB CONC 34.1 g/dL (32.0-36.0); MEAN CORPUSCULAR VOLUME 95 fl (80-97); MONOCYTES % (AUTO) 6.7 % (3-13); RED BLOOD COUNT 4.68 10^6/uL (3.72-5.28); RED CELL DISTRIBUTION WIDTH 13.2 % (11.5-14.0); SEGMENTED NEUTROPHILS % (AUTO) 61.1 % (42-78); WHITE BLOOD COUNT 6.4 10^3/uL (4.0-10.5)
[2017-03-28 09:57] LABS: ANION GAP 10 (5-19); BLOOD UREA NITROGEN 10 mg/dL (7-20); CALCIUM 9.6 mg/dL (8.4-10.2); CARBON DIOXIDE 29 mmol/L (22-30); CHLORIDE 102 mmol/L (98-107); CREATININE RESULT 0.78 mg/dL (0.52-1.25); GLUCOSE 100 mg/dL (75-110); LIPASE 47.9 U/L (23-300); POTASSIUM 4.4 mmol/L (3.6-5.0)
[2017-03-28 10:10] LABS: FREE T3 4.39 pg/mL (2.77-5.27)
== END ==
LOC: OD 08:02
PROVIDERS: ATTEND Family Medicine
DX: D72.89 Other specified disorders of white blood cells (principal); E03.9 Hypothyroidism, unspecified; E87.6 Hypokalemia; R19.7 Diarrhea, unspecified
CPT/HCPCS: 36415; 80048; 83690; 84439; 84481; 85025; 86308

== ENCOUNTER 2017-04-21 08:00 | Day surgery (SDC) | payer MEDICARE ==
[2017-04-21 09:02] LABS: HEMATOCRIT 46.4 % (36.0-47.0); HEMOGLOBIN 16.1 g/dL (12.0-15.5); HGB HCT DIFFERENCE 1.9; MEAN CORPUSCULAR HGB CONC 34.7 g/dL (32.0-36.0); MEAN CORPUSCULAR VOLUME 92 fl (80-97); RED BLOOD COUNT 5.03 10^6/uL (3.72-5.28); RED CELL DISTRIBUTION WIDTH 13.2 % (11.5-14.0); WHITE BLOOD COUNT 6.7 10^3/uL (4.0-10.5)
[2017-04-21] MEDS ORDERED: ALBUTEROL SULFATE 0.083% NEB 2.5 MG/3 ML AMPUL NEB ONE (09:07)
[2017-04-21] MEDS ORDERED: ALBUTEROL SULFATE 0.042% NEB (1.25 MG/3 ML) AMPUL NEB ONE (09:07)
[2017-04-21 09:15] LABS: ANION GAP 12 (5-19); BLOOD UREA NITROGEN 11 mg/dL (7-20); CALCIUM 9.8 mg/dL (8.4-10.2); CARBON DIOXIDE 31 mmol/L (22-30); CHLORIDE 99 mmol/L (98-107); CREATININE RESULT 0.76 mg/dL (0.52-1.25); GLUCOSE 97 mg/dL (75-110); POTASSIUM 3.8 mmol/L (3.6-5.0); SODIUM 141.6 mmol/L (137-145)
[2017-04-21] MEDS ORDERED: GLYCOPYRROLATE INJ 0.4 MG/2 ML VIAL ONE (09:55)
[2017-04-21] MEDS ORDERED: NALOXONE HCL INJ/PF 0.4 MG/1 ML SDV ONE (09:55)
[2017-04-21] MEDS ORDERED: ONDANSETRON HCL INJ/PF 4 MG/2 ML SDV ONE (09:55)
[2017-04-21] MEDS ORDERED: EPINEPHRINE INJ 1 MG/10 ML DISP.SYRIN ONE (09:56)
[2017-04-21] MEDS ORDERED: GLUCAGON,HUMAN RECOMB 1 MG INJ ONE (09:56)
[2017-04-21] MEDS ORDERED: FLUMAZENIL INJ 0.5 MG/5 ML VIAL IV ONE (09:56)
[2017-04-21] MEDS: MIDAZOLAM 2 MG/2 ML INJ ONE ×4 (10:20→10:45)
[2017-04-21] MEDS: FENTANYL CITRATE INJ/PF 100 MCG/2 ML AMPUL ONE ×3 (10:22→10:45)
--- NOTE | 2017-04-21 11:28 | Operative Report ---
Operative Report DATE OF SURGERY: 04/21/17 PREOPERATIVE DIAGNOSIS: History of colon polyps. History of colon cancer. POSTOPERATIVE DIAGNOSIS: Diverticulosis of the colon. Multiple colon polyps. OPERATION: Colonoscopy with snare polypectomies 3. SURGEON: GAETANO MCCORD ANESTHESIA: Moderate Sedation TISSUE REMOVED OR ALTERED: Distal transverse colon polyp, descending colon polyp , rectal polyp. COMPLICATIONS: None ESTIMATED BLOOD LOSS: Minimal INTRAOPERATIVE FINDINGS: Multiple large diverticuli throughout the colon. Well- healed coloileal anastomosis. Half centimeter sessile polyp at the distal transverse colon. Half centimeter sessile polyp at the distal descending colon. Quarter centimeter sessile polyp at the rectum. PROCEDURE: Informed consent was obtained. Patient was brought to the endoscopy suite. IV sedation with Versed and fentanyl was administered. Digital rectal exam revealed no palpable perianal masses. Endoscope was passed via the patient's anus it was fed to the coloileal anastomosis. The anastomosis appeared well- healed. Due to the marked redundancies of her colon I could not pass the scope into the ileum. There were multiple large diverticuli throughout the colon. At the distal transverse colon there was 1/2 cm sessile polyp which was snare polypectomy and the specimen retrieved. There was another polyp with similar appearance at the distal descending colon which was snare polypectomy than the specimen retrieved. At the distal rectum there was 1/4 cm sessile polyp which was snare polypectomy did and the specimen retrieved. Patient tolerated procedure well with no apparent complications and was taken to the recovery area in stable condition. Assessment: Multiple colon polyps removed. will await biopsy reports. I will see the patient back for follow-up in my office.
--- NOTE | 2017-04-21 11:31 | PDOC DISCHARGE SUMMARY ---
Discharge Summary (SDC) - Discharge Final Diagnosis: Multiple colon polyps. Diverticulosis of the colon. Date of Surgery: 04/21/17 Discharge Date: 04/21/17 Condition: Good Treatment or Instructions: Underwent colonoscopy with multiple snare polypectomies. May discharge patient home when met discharge criteria. Follow-up with me in 2-3 weeks. Discharge Diet: As Tolerated Discharge Activity: Activity As Tolerated Report the Following to Your Physician Immediately: Increase in Pain, Unusual Bleeding
[2017-04-21 12:15] VITALS: BP 110/64
== END 2017-04-21 12:15 | disposition home or self-care (01) ==
LOC: END 08:00
PROVIDERS: ATTEND Surgery
PROC: 0DBM8ZX Excision of Descending Colon, Via Natural or Artificial Opening Endoscopic, Diagnostic (ICD-10-PCS; 2017-04-21)
PROC: 0DBP8ZX Excision of Rectum, Via Natural or Artificial Opening Endoscopic, Diagnostic (ICD-10-PCS; 2017-04-21)
PROC: 0DBL8ZX Excision of Transverse Colon, Via Natural or Artificial Opening Endoscopic, Diagnostic (ICD-10-PCS; principal; 2017-04-21 09:45)
DX: D12.8 Benign neoplasm of rectum (principal); K57.30 Diverticulosis of large intestine without perforation or abscess without bleeding; D12.3 Benign neoplasm of transverse colon; D12.4 Benign neoplasm of descending colon; Z90.49 Acquired absence of other specified parts of digestive tract; Z85.038 Personal history of other malignant neoplasm of large intestine; R07.9 Chest pain, unspecified; R29.6 Repeated falls; I38 Endocarditis, valve unspecified; G47.30 Sleep apnea, unspecified; F17.210 Nicotine dependence, cigarettes, uncomplicated; P00-P96 Certain conditions originating in the perinatal period; E03.9 Hypothyroidism, unspecified; F32.9 Major depressive disorder, single episode, unspecified; I10 Essential (primary) hypertension; E06.3 Autoimmune thyroiditis; J44.9 Chronic obstructive pulmonary disease, unspecified; Z88.0 Allergy status to penicillin; Z88.1 Allergy status to other antibiotic agents; Z85.44 Personal history of malignant neoplasm of other female genital organs; Z86.73 Personal history of transient ischemic attack (TIA), and cerebral infarction without residual deficits; Z85.3 Personal history of malignant neoplasm of breast; Z79.899 Other long term (current) drug therapy; Z79.51 Long term (current) use of inhaled steroids; Z79.82 Long term (current) use of aspirin; Z79.1 Long term (current) use of non-steroidal anti-inflammatories (NSAID); Z99.81 Dependence on supplemental oxygen
CPT/HCPCS: 36415; 45385; 80048; 85027; 88305; J0171; J1610; J2250; J2310; J2405; J3010; J3490

== ENCOUNTER → 2017-06-23 | Outpatient (CLI) | payer MEDICARE ==
[2017-06-23 08:32] LABS: ABSOLUTE EOSINOPHILS # (AUTO) 0.1 10^3/uL (0.0-0.6); ABSOLUTE LYMPHOCYTES (AUTO) 1.9 10^3/uL (0.5-4.7); ABSOLUTE MONOCYTES (AUTO) 0.4 10^3/uL (0.1-1.4); ABSOLUTE NEUT (AUTO) 3.4 10^3/uL (1.7-8.2); BASOPHILS % (AUTO) 0.6 % (0-2); EOSINOPHILS % (AUTO) 1.9 % (0-6); HEMATOCRIT 42.9 % (36.0-47.0); HEMOGLOBIN 14.9 g/dL (12.0-15.5); HGB HCT DIFFERENCE 1.8; LYMPHOCYTES % (AUTO) 32.7 % (13-45); MEAN CORPUSCULAR HGB CONC 34.9 g/dL (32.0-36.0); MEAN CORPUSCULAR VOLUME 92 fl (80-97); MONOCYTES % (AUTO) 7.4 % (3-13); RED BLOOD COUNT 4.66 10^6/uL (3.72-5.28); RED CELL DISTRIBUTION WIDTH 13.2 % (11.5-14.0); SEGMENTED NEUTROPHILS % (AUTO) 57.4 % (42-78)
[2017-06-23 08:49] LABS: ALANINE AMINOTRANSFERASE 21 U/L (9-52); ALBUMIN 3.8 g/dL (3.5-5.0); ALKALINE PHOSPHATASE 126 U/L (38-126); ANION GAP 11 (5-19); ASPARTATE AMINO TRANSFERASE 20 U/L (14-36); BILIRUBIN,DIRECT 0.3 mg/dL (0.0-0.4); BILIRUBIN,TOTAL 0.4 mg/dL (0.2-1.3); BLOOD UREA NITROGEN 18 mg/dL (7-20); CALCIUM 9.8 mg/dL (8.4-10.2); CARBON DIOXIDE 32 mmol/L (22-30); CHLORIDE 103 mmol/L (98-107); CHOLESTEROL 135.53 mg/dL (0-200); CREATININE RESULT 0.76 mg/dL (0.52-1.25); Direct HDL 57 mg/dL (>40); GLUCOSE 93 mg/dL (75-110); MAGNESIUM 2.1 mg/dL (1.6-2.3); POTASSIUM 4.4 mmol/L (3.6-5.0); SODIUM 145.8 mmol/L (137-145); TOTAL PROTEIN 6.4 g/dL (6.3-8.2); TRIGLYCERIDES 74 mg/dL (<150)
[2017-06-23 09:13] LABS: DIRECT LDL 66 mg/dL (<100)
[2017-06-23 09:20] LABS: FREE T3 2.87 pg/mL (2.77-5.27)
== END ==
LOC: OD 07:35
PROVIDERS: ATTEND Family Medicine
DX: E78.5 Hyperlipidemia, unspecified (principal); E87.6 Hypokalemia; E03.9 Hypothyroidism, unspecified; Z79.899 Other long term (current) drug therapy
CPT/HCPCS: 36415; 80053; 80061; 83735; 84439; 84481; 85025

== ENCOUNTER → 2017-09-30 | Outpatient (CLI) | payer MEDICARE ==
[2017-09-30 13:43] LABS: FREE T3 5.3 pg/mL (2.77-5.27)
[2017-09-30 14:28] LABS: FREE T4 (FREE THYROXINE) 1.12 ng/dL (0.78-2.19)
== END ==
LOC: OD 11:47
PROVIDERS: ATTEND Family Medicine
DX: E03.9 Hypothyroidism, unspecified (principal)
CPT/HCPCS: 36415; 84439; 84481

== ENCOUNTER → 2017-10-24 | Outpatient (CLI) | payer MEDICARE ==
[2017-10-24 11:21] LABS: ANION GAP 9 (5-19); BLOOD UREA NITROGEN 17 mg/dL (7-20); CALCIUM 9.9 mg/dL (8.4-10.2); CARBON DIOXIDE 29 mmol/L (22-30); CHLORIDE 102 mmol/L (98-107); GLUCOSE 85 mg/dL (75-110); POTASSIUM 4.9 mmol/L (3.6-5.0); SODIUM 140.4 mmol/L (137-145)
== END ==
LOC: OD 09:25
PROVIDERS: ATTEND Family Medicine
DX: E87.6 Hypokalemia (principal)
CPT/HCPCS: 36415; 80048

== ENCOUNTER → 2017-12-09 | Outpatient (CLI) | payer MEDICARE ==
[2017-12-09 13:30] LABS: ABSOLUTE EOSINOPHILS # (AUTO) 0.1 10^3/uL (0.0-0.6); ABSOLUTE MONOCYTES (AUTO) 0.5 10^3/uL (0.1-1.4); ABSOLUTE NEUT (AUTO) 3.6 10^3/uL (1.7-8.2); BASOPHILS % (AUTO) 0.6 % (0-2); EOSINOPHILS % (AUTO) 1.7 % (0-6); HEMATOCRIT 44.5 % (36.0-47.0); LYMPHOCYTES % (AUTO) 32.2 % (13-45); MEAN CORPUSCULAR HEMOGLOBIN 31.3 pg (27.0-33.4); MEAN CORPUSCULAR HGB CONC 33.6 g/dL (32.0-36.0); MEAN CORPUSCULAR VOLUME 93 fl (80-97); MONOCYTES % (AUTO) 8.3 % (3-13); PLATELET COUNT 203 10^3/uL (150-450); RED BLOOD COUNT 4.78 10^6/uL (3.72-5.28); RED CELL DISTRIBUTION WIDTH 13.6 % (11.5-14.0); SEGMENTED NEUTROPHILS % (AUTO) 57.2 % (42-78); TOTAL CELLS COUNTED % (AUTO) 100 %; WHITE BLOOD COUNT 6.3 10^3/uL (4.0-10.5)
[2017-12-09 13:55] LABS: ALANINE AMINOTRANSFERASE 23 U/L (9-52); ALBUMIN 3.8 g/dL (3.5-5.0); ALKALINE PHOSPHATASE 99 U/L (38-126); ANION GAP 8 (5-19); ASPARTATE AMINO TRANSFERASE 19 U/L (14-36); BILIRUBIN,DIRECT 0.1 mg/dL (0.0-0.4); BILIRUBIN,TOTAL 0.5 mg/dL (0.2-1.3); BLOOD UREA NITROGEN 8 mg/dL (7-20); CALCIUM 9.6 mg/dL (8.4-10.2); CARBON DIOXIDE 35 mmol/L (22-30); CHLORIDE 104 mmol/L (98-107); CHOLESTEROL 110.44 mg/dL (0-200); GLUCOSE 93 mg/dL (75-110); POTASSIUM 4.4 mmol/L (3.6-5.0); SODIUM 146.6 mmol/L (137-145); TOTAL PROTEIN 6.2 g/dL (6.3-8.2); TRIGLYCERIDES 89 mg/dL (<150)
[2017-12-09 14:06] LABS: DIRECT LDL 41 mg/dL (<100)
[2017-12-09 14:08] LABS: FREE T3 6.38 pg/mL (2.77-5.27); FREE T4 (FREE THYROXINE) 1.51 ng/dL (0.78-2.19)
== END ==
LOC: OD 11:33
PROVIDERS: ATTEND Family Medicine
DX: E78.5 Hyperlipidemia, unspecified (principal); E03.9 Hypothyroidism, unspecified; G31.84 Mild cognitive impairment of uncertain or unknown etiology; E87.6 Hypokalemia; Z51.81 Encounter for therapeutic drug level monitoring; Z79.899 Other long term (current) drug therapy
CPT/HCPCS: 36415; 80053; 80061; 82607; 83735; 84439; 84481; 85025

== ENCOUNTER 2017-12-24 12:27 | Inpatient (IN) | payer MEDICARE ==
[2017-12-24] MEDS ORDERED: METHYLPREDNISOLONE INJ 40 MG/1 ML SDV IV SCH (14:00)
[2017-12-24] MEDS ORDERED: SENNOSIDES/DOCUSATE 8.6-50 MG 1 EACH TABLET PO PRN (14:47)
--- NOTE | 2017-12-24 14:57 | RADIOLOGY REPORT (SQ) ---
EXAM DESCRIPTION: CHEST 2 VIEWS COMPLETED DATE/TIME: 12/24/2017 2:31 pm REASON FOR STUDY: shortness of breath COMPARISON: December 2016 EXAM PARAMETERS: NUMBER OF VIEWS: two views TECHNIQUE: Digital Frontal and Lateral radiographic views of the chest acquired. RADIATION DOSE: NA LIMITATIONS: none FINDINGS: LUNGS AND PLEURA: No opacities, masses or pneumothorax. No pleural effusion. Linear scarr ing or subsegmental atelectasis is identified in the left lung base MEDIASTINUM AND HILAR STRUCTURES: No masses or contour abnormalities. HEART AND VASCULAR STRUCTURES: Heart normal size. No evidence for failure. BONES: No acute findings. HARDWARE: None in the chest. OTHER: No other significant finding. IMPRESSION: NO ACUTE RADIOGRAPHIC FINDING IN THE CHEST. TECHNICAL DOCUMENTATION: JOB ID: [id number] [email or web address] Rights Reserved Reading location - IP/workstation name: [email or web address]
[2017-12-24 14:59] LABS: ABSOLUTE BASOPHILS # (AUTO) 0.1 10^3/uL (0.0-0.2); ABSOLUTE MONOCYTES (AUTO) 0.7 10^3/uL (0.1-1.4); ABSOLUTE NEUT (AUTO) 8.5 10^3/uL (1.7-8.2); BASOPHILS % (AUTO) 1.1 % (0-2); EOSINOPHILS % (AUTO) 0.1 % (0-6); HEMATOCRIT 49.4 % (36.0-47.0); HEMOGLOBIN 16.5 g/dL (12.0-15.5); MEAN CORPUSCULAR HEMOGLOBIN 30.6 pg (27.0-33.4); MEAN CORPUSCULAR HGB CONC 33.5 g/dL (32.0-36.0); MEAN CORPUSCULAR VOLUME 92 fl (80-97); MONOCYTES % (AUTO) 5.7 % (3-13); PLATELET COUNT 233 10^3/uL (150-450); RED CELL DISTRIBUTION WIDTH 13.7 % (11.5-14.0); SEGMENTED NEUTROPHILS % (AUTO) 69.1 % (42-78); TOTAL CELLS COUNTED % (AUTO) 100 %; WHITE BLOOD COUNT 12.4 10^3/uL (4.0-10.5)
[2017-12-24] MEDS ORDERED: ENOXAPARIN SODIUM INJ 30 MG/0.3 ML DISP.SYRIN SUBCUT ONE (15:00)
[2017-12-24 15:24] LABS: ANION GAP 11 (5-19); BLOOD UREA NITROGEN 22 mg/dL (7-20); CALCIUM 9.6 mg/dL (8.4-10.2); CARBON DIOXIDE 26 mmol/L (22-30); CHLORIDE 104 mmol/L (98-107); GLUCOSE 105 mg/dL (75-110); PHOSPHORUS 4.5 mg/dL (2.5-4.5); POTASSIUM 4.2 mmol/L (3.6-5.0)
[2017-12-24] MEDS ORDERED: ALBUTEROL SULFATE HFA (90 MCG/PUFF) 200 PUFF/8.5 GM MDI IH PRN (15:39)
[2017-12-24] MEDS ORDERED: GUAIFENESIN 600 MG TABLET.SA PO PRN (15:39)
[2017-12-24] MEDS ORDERED: ACETAMINOPHEN 325 MG TABLET PO PRN (15:44)
[2017-12-24] MEDS: IPRATROPIUM/ALBUTEROL 0.5-2.5 MG/3 ML AMPUL NEB SCH ×3 (16:40→23:58)
[2017-12-24] MEDS: METHYLPREDNISOLONE INJ 125 MG/2 ML SDV IV SCH ×2 (17:18→21:09)
[2017-12-24] MEDS: BUDESONIDE NEB 0.5 MG/2 ML AMPUL NEB SCH (19:57)
[2017-12-24] MEDS ORDERED: [UNRECOGNIZED DRUG - OTHER] NEB SCH (20:00)
[2017-12-24] MEDS ORDERED: ARFORMOTEROL TARTRATE NEB SCH (20:00)
[2017-12-24] MEDS: ATORVASTATIN CALCIUM 10 MG TABLET PO SCH (21:09)
[2017-12-24] MEDS ORDERED: ESTRADIOL 1 GM VG SCH (22:00)
[2017-12-24] MEDS ORDERED: (PENDING PHARMACY ID) (Pravastatin Sodium [Pravachol] 40 MG) PO SCH (22:00)
[2017-12-25] MEDS: METHYLPREDNISOLONE INJ 125 MG/2 ML SDV IV SCH ×3 (03:07→20:52)
[2017-12-25] MEDS: IPRATROPIUM/ALBUTEROL 0.5-2.5 MG/3 ML AMPUL NEB SCH ×6 (04:44→23:12)
[2017-12-25] MEDS: THYROID (PORK) 60 MG TABLET PO SCH (05:16)
[2017-12-25] MEDS ORDERED: FUROSEMIDE 40 MG TABLET PO SCH (08:00)
[2017-12-25] MEDS: BUDESONIDE NEB 0.5 MG/2 ML AMPUL NEB SCH ×2 (08:32→20:06)
--- NOTE | 2017-12-25 08:52 | PDOC H&P ---
History of Present Illness Admission Date/PCP: 12/24/17 12:27 SHERMAN FLANAGAN MD Patient complains of: shortness of breath History of Present Illness: JOHAN WREN is a 72 year old female who was a direct admission from Dr. Flanagan 's office for persistent shortness of breath. The patient states she has been experiencing dyspnea, wheezing, non-productive cough, and weakness for 6 weeks. The patient reports that her symptoms are exacerbated with any type of exercise , but she experiences mild shortness of breath even at rest. When her dyspnea is severely exacerbated, she reports that she needs to TRIPOD in order to catch her breath. According to the progress note from Dr. Flanagan, the patient was recently treated with a 2 week course of Levaquin, her final day of treatment was supposed to be today. The patient has already been taking prednisone and mucinex, as well as her home medications ProAir, Brovana, Spiriva, Abluterol nebulizer, and pulmicort, but they offer no relief for her symptoms. 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 Sissy Flanagan CARDS: Dr. Ever Mcguire PULM: Dr. Orion Murcia Upon assessment, the patient is found to be sitting up in the bedside recliner on room air. The patient does not appear to be in any distress. She is able to answer questions appropriately and speak in full sentences without pause. Wheezing is auscultated in all lung joshua. +3 pitting edema is noted to the bilateral lower extremities. Past Medical History Cardiac Medical History: Reports: Coronary Artery Disease, Hypertension Cardiac History Note: AORTIC AND PULMONARY VALVE REGURGITATION Pulmonary Medical History: Reports: Asthma - on home nebs & O2 3-3.5 , Bronchitis, Chronic Obstructive Pulmonary Disease (COPD), Respiratory Failure - Chronic hypoxemic on home oxygen, Sleep Apnea - On CPAP Endocrine Medical History: Reports: Hypothyroidism Renal/ History Note: UTI, PYELONEPHRITIS Malignancy Medical History: Reports: Breast Cancer, Colorectal Cancer, Other - cancer of the vulva Musculoskeltal Medical History: Reports: Arthritis - generalized Psychiatric Medical History: Reports: Depression Past Surgical History Past Surgical History: Reports: Cholecystectomy, Mastectomy - DOUBLE, NO NEED TO AVOID ARM, Other - History of surgery for vulvar and colon cancer, currently cancer free Denies: Amputation, Hysterectomy, Pacemaker Social History Information Source: Patient Lives with: Family Smoking Status: Current Every Day Smoker Cigarettes Packs Per Day: 0.5 Number of Years Smokin Frequency of Alcohol Use: None Hx Recreational Drug Use: No Drugs: None Hx Prescription Drug Abuse: No - Advance Directive Resuscitation Status: Full Code Family History Family History: CAD Parental Family History Reviewed: Yes - Father - pancreatic cancer, DM; Mother - [place] Children Family History Reviewed: Yes Sibling(s) Family History Reviewed.: Yes Medication/Allergy Home Medications: Albuterol Sulfate [Albuterol Sulfate 2.5mg/3 mL] 1 vial NEB RTQIDP PRN 12/25/16 Albuterol Sulfate [Proair HFA Inhalation Aerosol 8.5 gm MDI] 2 puff IH Q4HP PRN 12/25/16 Arformoterol Tartrate [Brovana Inhalation Solution 15 mcg/2 mL] 1 vial NEB RTBID 12/25/16 Aspirin [Aspirin EC] 81 mg PO DAILY 12/25/16 Docusate Sodium [Colace 100 mg Capsule] 100 mg PO BID 12/25/16 Naproxen 500 mg PO BIDP PRN 12/25/16 Pravastatin Sodium [Pravachol] 40 mg PO QHS 12/25/16 Glucosamine HCl/Chondro Mccloud A [Glucosamine Chondroitin Cap] 1 cap PO BID Guaifenesin [Mucinex] 600 mg PO BIDP PRN 03/27/17 Losartan Potassium 25 mg PO DAILY 03/27/17 Potassium Chloride 10 meq PO TUTHSA@0800 MDD TAKES WITH LASIX 03/27/17 Tiotropium [place] [Spiriva Handihaler 5 Cap/Kit (18 Mcg/Cap)] 1 cap IH DAILY Budesonide [Pulmicort Neb 0.5 mg/2 ml Ampul] 0.5 mg NEB RTQ12 12/24/17 Cyanocobalamin (Vitamin B-12) [Vitamin B-12 1000 Mcg Tablet] 1,000 mcg PO DAILY 12/24/17 Estradiol [Estrace] 1 gm VG QHS 12/24/17 Furosemide [Lasix 40 mg Tablet] 40 mg PO QAM 12/24/17 Multivitamin [Tab-A-Jonny (Multiple Vitamin) Tablet] 1 tab PO DAILY 12/24/17 Selenium [Selenimin] 600 mcg PO Q12 12/24/17 Tamsulosin HCl [Flomax 0.4 mg Cap.sr] 0.4 mg PO DAILY 12/24/17 Thyroid (Pork) [[place] Thyroid 60 Mg Tablet] 150 mg PO Q6AM 12/24/17 Ubidecarenone [Co Q-10] 100 mg PO DAILY 12/24/17 Vitamin E 1,000 unit PO DAILY 12/24/17 Zinc Sulfate [Zinc-220 Capsule] 220 mg PO QHS 12/24/17 Allergies/Adverse Reactions: doxycycline [Doxycycline] Allergy (Severe, Verified 03/27/17 13:49) VOMITING Opioids - Morphine Analogues Allergy (Severe, Verified 03/27/17 13:49) Anaphylaxis Penicillins Allergy (Verified 03/27/17 13:49) Anaphylaxis Review of Systems Constitutional: PRESENT: fatigue, weakness Nose, Mouth, and Throat: PRESENT: headache(s), sore throat Cardiovascular: PRESENT: dyspnea on exertion, edema Respiratory: PRESENT: cough, dyspnea. ABSENT: hemoptysis Musculoskeletal: PRESENT: back pain Neurological: PRESENT: weakness Psychiatric: ABSENT: as per HPI, anxiety, depression, hallucinations, homidical ideation, suicidal ideation, other Physical Exam Vital Signs: Temp Pulse Resp BP Pulse Ox 97.5 F 86 18 109/62 99 12/25/17 03:09 12/25/17 04:45 12/25/17 04:45 12/25/17 03:09 12/25/17 03:09 Intake & Output 12/24/17 12/25/17 12/26/17 06:59 06:59 06:59 Intake Total 560 Output Total 500 Balance 60 Weight 103.9 kg General appearance: PRESENT: no acute distress, morbidly obese Head exam: PRESENT: atraumatic Eye exam: PRESENT: conjunctiva pink, PERRLA Mouth exam: PRESENT: moist Neck exam: PRESENT: full ROM Respiratory exam: PRESENT: symmetrical, unlabored, wheezes Cardiovascular exam: PRESENT: RRR, +S1, +S2 Pulses: PRESENT: normal radial pulses, +1 pedal pulses bilateral Vascular exam: PRESENT: normal capillary refill GI/Abdominal exam: PRESENT: normal bowel sounds, soft. ABSENT: tenderness Rectal exam: PRESENT: deferred Extremities exam: PRESENT: pedal edema, +2 edema Musculoskeletal exam: PRESENT: ambulatory, full ROM Neurological exam: PRESENT: alert, awake, oriented to person, oriented to place , oriented to time, oriented to situation, normal gait Psychiatric exam: PRESENT: appropriate affect Skin exam: PRESENT: dry, normal color, warm Results Laboratory Results: 12/24/17 14:44 12/24/17 14:44 12/24/17 12/24/17 14:44 14:44 WBC 12.4 H RBC 5.40 H Hgb 16.5 H Hct 49.4 H MCV 92 MCH 30.6 MCHC 33.5 RDW 13.7 Plt Count 233 Seg Neutrophils % 69.1 Lymphocytes % 24.0 Monocytes % 5.7 Eosinophils % 0.1 Basophils % 1.1 Absolute Neutrophils 8.5 H Absolute Lymphocytes 3.0 Absolute Monocytes 0.7 Absolute Eosinophils 0.0 Absolute Basophils 0.1 Sodium 141.0 Potassium 4.2 Chloride 104 Carbon Dioxide 26 Anion Gap 11 BUN 22 H Creatinine 0.89 Est GFR ( Amer) > 60 Est GFR (Non-Af Amer) > 60 Glucose 105 Calcium 9.6 Phosphorus 4.5 Magnesium 1.9 Impressions: Chest X-Ray 12/24/17 00:00 IMPRESSION: NO ACUTE RADIOGRAPHIC FINDING IN THE CHEST. Status: Imported from PACS Assessment & Plan - Diagnosis (1) Respiratory distress Is this a current diagnosis for this admission?: Yes Plan: Secondary to URI and COPD exacerbation Patient reports 6 week history of dyspnea on exertion, wheezing, and cough 2 week course of Levaquin completed Wheezing auscultated in all lung joshua, initiate IV solumedrol and scheduled nebulizers Supplemental oxygen during daytime for SPO2<88% CPAP at night Chest xray benign Incentive spirometry at bedside along with flutter valve (2) COPD (chronic obstructive pulmonary disease) Qualifiers: COPD type: unspecified COPD Qualified Code(s): J44.9 - Chronic obstructive pulmonary disease, unspecified Is this a current diagnosis for this admission?: Yes Plan: Patient endorses history of COPD, still smokes approx. 6 cigarettes per day. Patient states she is trying to quit. COPD exacerbation likely secondary to URI Patient reports 6 week history of dyspnea on exertion, wheezing, and cough 2 week course of Levaquin completed, no plan for further antibiotic treatment at this time. The patient is afebrile, no leukocytosis, the patient appears non- toxic Continue home COPD medications - Spiriva, Brovana, Pulmicort, ProAir Scheduled IV Solumedrol 6mg q6h, scheduled Duonebs, PRN xopenex Supplemental oxygen for SPO2<88% Pulmonology consulted (3) Essential hypertension Is this a current diagnosis for this admission?: Yes Plan: The patient endorses a history of HTN Will continue home dose Loartan Continue daily ASA and statin therapy +3 pitting edema in bilateral lower extremities, continue home dose lasix (4) Obstructive sleep apnea Is this a current diagnosis for this admission?: Yes Plan: Patient endorses a history of ESCOBAR, uses CPAP each night Will continue while inpatient - Time Time Spent: 30 to 50 Minutes Smoking Cessation Education: 3 to 10 minutes Medications reviewed and adjusted accordingly: Yes Anticipated discharge: Home Within: within 72 hours - Inpatient Certification Based on my medical assessment, after consideration of the patient's comorbidities, presenting symptoms, or acuity I expect that the services needed warrant INPATIENT care.: Yes I certify that my determination is in accordance with my understanding of Medicare's requirements for reasonable and necessary INPATIENT services [42 CFR 412.3e].: Yes Medical Necessity: Need for Nebulizer Therapy and Monitoring of Response - Plan Summary Plan Summary: Ultimately, the plan is to discharge the patient home
[2017-12-25 09:16] LABS: ABSOLUTE BASOPHILS # (AUTO) 0.1 10^3/uL (0.0-0.2); ABSOLUTE NEUT (AUTO) 8.7 10^3/uL (1.7-8.2); HEMATOCRIT 47.9 % (36.0-47.0); HEMOGLOBIN 16.2 g/dL (12.0-15.5); LYMPHOCYTES % (AUTO) 9.9 % (13-45); MEAN CORPUSCULAR HEMOGLOBIN 31.5 pg (27.0-33.4); MEAN CORPUSCULAR HGB CONC 33.9 g/dL (32.0-36.0); MEAN CORPUSCULAR VOLUME 93 fl (80-97); MONOCYTES % (AUTO) 0.5 % (3-13); PLATELET COUNT 218 10^3/uL (150-450); RED BLOOD COUNT 5.15 10^6/uL (3.72-5.28); SEGMENTED NEUTROPHILS % (AUTO) 88.6 % (42-78); TOTAL CELLS COUNTED % (AUTO) 100 %; WHITE BLOOD COUNT 9.8 10^3/uL (4.0-10.5)
[2017-12-25 09:35] LABS: ANION GAP 14 (5-19); BLOOD UREA NITROGEN 20 mg/dL (7-20); CARBON DIOXIDE 29 mmol/L (22-30); CHLORIDE 100 mmol/L (98-107); GLUCOSE 177 mg/dL (75-110); PHOSPHORUS 3.6 mg/dL (2.5-4.5); POTASSIUM 4.5 mmol/L (3.6-5.0); SODIUM 142.9 mmol/L (137-145)
[2017-12-25] MEDS ORDERED: ENOXAPARIN SODIUM INJ 30 MG/0.3 ML DISP.SYRIN SUBCUT SCH (10:00)
[2017-12-25] MEDS: ENOXAPARIN SODIUM INJ 40 MG/0.4 ML DISP.SYRIN SUBCUT SCH (10:12)
[2017-12-25] MEDS: TAMSULOSIN HCL 0.4 MG CAP.SR.24H PO SCH (10:14)
[2017-12-25] MEDS: LOSARTAN POTASSIUM 25 MG TABLET PO SCH (10:14)
[2017-12-25] MEDS: MULTIVITAMIN TABLET PO SCH (10:14)
[2017-12-25] MEDS: ASPIRIN 81 MG TABLET, ENT COATED PO SCH (10:15)
[2017-12-25] MEDS: TIOTROPIUM BROMIDE DPI 5 CAP/KIT (18 MCG/CAP) IH SCH (10:17)
[2017-12-25] MEDS: POLYETHYLENE GLYCOL 3350 POWDER 17 GM/1 PACKET PO SCH (10:20)
[2017-12-25] MEDS: CYANOCOBALAMIN (VITAMIN B-12) 1,000 MCG TABLET PO SCH (10:22)
[2017-12-25 10:26] LABS: ARTERIAL BLOOD BASE EXCESS 0 mmol/L; ARTERIAL BLOOD H2CO3 1.04 mmol/L (1.05-1.35); ARTERIAL BLOOD HCO3 23.3 mmol/L (20-26); ARTERIAL BLOOD O2 SATURATION 95.4 % (94-98); ARTERIAL BLOOD PCO2 34.6 mmHg (35-45); ARTERIAL BLOOD PH 7.45 (7.35-7.45); ARTERIAL BLOOD PO2 72.9 mmHg (80-100); ARTERIAL BLOOD TOTAL CO2 24.4 mmol/L (21-25)
[2017-12-25 10:27] LABS: ARTERIAL BLOOD FIO2 3L
[2017-12-25 11:42] LABS: CREATINE KINASE MB 1.56 ng/mL (<4.55)
[2017-12-25 11:46] LABS: TROPONIN I < 0.012 ng/mL
--- NOTE | 2017-12-25 17:14 | PDOC PROGRESS REPORT ---
Subjective Progress Note for:: 12/25/17 Subjective:: JOHAN WREN is a 72 year old female who was a direct admit from Dr. Flanagan's office for persistent shortness of breath, weakness, and dyspnea on exertion for 6 weeks. The patient was recently treated with a two-week course of Levaquin. She was admitted to [facility] for failed outpatient treatment. 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 The patient was seen this morning on rounds. Dr. Drake of pulmonology was also at the bedside. The states that she "does not feel well" today. The patient states that she feels 'rundown' and increasingly short of breath. Upon assessment, wheezing was heard in all lung joshua. No improvement from yesterday despite IV Solumedrol. The patient was placed on continuous supplemental oxygen at 2 L/min. +3 pitting edema noted in bilateral lower extremities. Reason For Visit: COPD EXACERBATION Physical Exam Vital Signs: Temp Pulse Resp BP Pulse Ox 98.4 F 101 H 16 107/64 94 12/25/17 15:00 12/25/17 15:00 12/25/17 15:00 12/25/17 15:00 12/25/17 15:00 Intake & Output 12/24/17 12/25/17 12/26/17 06:59 06:59 06:59 Intake Total 560 Output Total 500 Balance 60 Weight 103.9 kg General appearance: PRESENT: no acute distress, morbidly obese Head exam: PRESENT: atraumatic Eye exam: PRESENT: conjunctiva pink, PERRLA Mouth exam: PRESENT: moist Neck exam: PRESENT: full ROM Respiratory exam: PRESENT: prolonged expiratory phas, symmetrical, wheezes Cardiovascular exam: PRESENT: +S1, +S2 Pulses: PRESENT: normal radial pulses, normal dorsalis pedis pul Vascular exam: PRESENT: normal capillary refill GI/Abdominal exam: PRESENT: normal bowel sounds, soft. ABSENT: tenderness Rectal exam: PRESENT: deferred Extremities exam: PRESENT: full ROM, pedal edema, other - +3 pitting edema in bilateral lower extremities Musculoskeletal exam: PRESENT: ambulatory, full ROM Neurological exam: PRESENT: alert, awake, oriented to person, oriented to place , oriented to time, oriented to situation, normal gait Psychiatric exam: PRESENT: appropriate affect Skin exam: PRESENT: intact, normal color Results Laboratory Results: 12/25/17 08:45 12/25/17 08:45 12/25/17 12/25/17 12/25/17 08:45 08:45 10:10 WBC 9.8 RBC 5.15 Hgb 16.2 H Hct 47.9 H MCV 93 MCH 31.5 MCHC 33.9 RDW 14.0 Plt Count 218 Seg Neutrophils % 88.6 H Lymphocytes % 9.9 L Monocytes % 0.5 L Eosinophils % 0.0 Basophils % 1.0 Absolute Neutrophils 8.7 H Absolute Lymphocytes 1.0 Absolute Monocytes 0.0 L Absolute Eosinophils 0.0 Absolute Basophils 0.1 Carbonic Acid 1.04 L HCO3/H2CO3 Ratio 22:1 ABG pH 7.45 ABG pCO2 34.6 L ABG pO2 72.9 L ABG HCO3 23.3 ABG O2 Saturation 95.4 ABG Base Excess 0 FiO2 3L Sodium 142.9 Potassium 4.5 Chloride 100 Carbon Dioxide 29 Anion Gap 14 BUN 20 Creatinine 0.74 Est GFR ( Amer) > 60 Est GFR (Non-Af Amer) > 60 Glucose 177 H Calcium 10.0 Phosphorus 3.6 Magnesium 2.2 12/25/17 12/25/17 10:25 10:25 Creatine Kinase 42 CK-MB (CK-2) 1.56 Troponin I < 0.012 Impressions: Chest X-Ray 12/24/17 00:00 IMPRESSION: NO ACUTE RADIOGRAPHIC FINDING IN THE CHEST. Status: Imported from PACS Assessment & Plan - Diagnosis (1) Acute and chronic respiratory failure ([id number]) Qualifiers: Respiratory failure complication: hypoxia Qualified Code(s): J96.21 - Acute and chronic respiratory failure with hypoxia Is this a current diagnosis for this admission?: Yes Plan: Secondary to URI and COPD exacerbation Patient reports 6 week history of dyspnea on exertion, wheezing, and cough 2 week course of Levaquin completed Wheezing auscultated in all lung joshua, initiate IV solumedrol and scheduled nebulizers Supplemental oxygen during daytime to maintain SPO2>88% CPAP at night Chest xray benign Incentive spirometry at bedside along with flutter valve (2) COPD (chronic obstructive pulmonary disease) Qualifiers: COPD type: unspecified COPD Qualified Code(s): J44.9 - Chronic obstructive pulmonary disease, unspecified Is this a current diagnosis for this admission?: Yes Plan: Patient endorses history of COPD, still smokes approx. 6 cigarettes per day. Patient states she is trying to quit. COPD exacerbation likely secondary to URI Patient reports 6 week history of dyspnea on exertion, wheezing, and cough 2 week course of Levaquin completed, no plan for further antibiotic treatment at this time. The patient is afebrile, no leukocytosis, but appears lethargic and experiencing worsening shortness of breath and dyspnea on exertion today. Patient placed on continuous supplemental oxygen via nasal cannula to maintain SPO2>88% Continue home COPD medications - Spiriva, Brovana, Pulmicort, ProAir Increased IV Solumedrol to 80mg q6h, continue scheduled Duonebs, PRN xopenex Pulmonology consulted, awaiting recommendations. (3) Essential hypertension Is this a current diagnosis for this admission?: Yes Plan: The patient endorses a history of HTN Will continue home dose Loartan Continue daily ASA and statin therapy +3 pitting edema in bilateral lower extremities. Given the patient's continued poor respiratory status, plan to increase daily Lasix dosage. Additionally, plan to administer 20 mg IV Lasix today (4) Obstructive sleep apnea Is this a current diagnosis for this admission?: Yes Plan: Patient endorses a history of ESCOBAR, uses CPAP each night Will continue while inpatient - Time Time Spent with patient: 15-24 minutes Medications reviewed and adjusted accordingly: Yes Anticipated discharge: Home Within: within 72 hours - Inpatient Certification Based on my medical assessment, after consideration of the patient's comorbidities, presenting symptoms, or acuity I expect that the services needed warrant INPATIENT care.: Yes I certify that my determination is in accordance with my understanding of Medicare's requirements for reasonable and necessary INPATIENT services [42 CFR 412.3e].: Yes Medical Necessity: Need Close Monitoring Due to Risk of Patient Decompensation, Need for Nebulizer Therapy and Monitoring of Response, Risk of Complication if Not Cared For in Hospital - Plan Summary Plan Summary: Ultimately, the plan is to discharge the patient home. Is unclear at this time whether or not she will need continuous home oxygen.
[2017-12-25] MEDS ORDERED: FUROSEMIDE INJ/PF 20 MG/2 ML SDV IV ONE (17:30)
[2017-12-25 18:31] LABS: CREATINE KINASE MB 1.71 ng/mL (<4.55)
[2017-12-25 18:35] LABS: TROPONIN I < 0.012 ng/mL
--- NOTE | 2017-12-25 19:30 | XCELERA REPORT ---
[address] [address] Transthoracic Echocardiogram Report Name: JOHAN WREN Age: 72 yrs Gender: Female : 1945 Patient Status: Inpatient Patient Location: [address] [place] [address] Study Date: 12/25/2017 10:51 AM Height: 63 in Weight: 229 lb BSA: 2.0 m2 Procedure: A complete two-dimensional transthoracic echocardiogram was performed (2D, M-mode, spectral and color flow Doppler). The study was technically difficult with many images being suboptimal in quality. Reason For Study: chf Ordering Physician: MARIA ISABEL CUNHA Performed By: Linnette Dai Interpretation Summary Mass noted, approx. 1.5X2.0 cm arising from R side of Interatrial septum and protruding into the RA, most consistent with lipomatous hypertrophy vs lipoma vs myxoma. Rec. Cardiac MRI/Cardaic CTA The left ventricular ejection fraction is normal. There is borderline concentric left ventricular hypertrophy. The left ventricle is grossly normal size. Wall motion cannot be accurately commented on, but no definite regional wall motion abnormalities noted. The right ventricular systolic function is normal. The right atrium is normal. The left atrial size is normal. There is a trace amount of mitral regurgitation There is no mitral valve stenosis. There is no aortic valve stenosis No aortic regurgitation is present. There is no tricuspid stenosis. No tricuspid regurgitation. There is no pericardial effusion. MMode/2D Measurements & Calculations RVDd: 3.5 cm LVIDd: 4.5 cm FS: 39.0 % Ao root diam: 2.8 cm IVSd: 0.89 cm LVIDs: 2.8 cm EDV(Teich): 93.0 ml LVPWd: 0.85 cm ESV(Teich): 28.3 ml Ao root area: 6.4 cm2 EF(Teich): 69.5 % LA dimension: 2.7 cm Doppler Measurements & Calculations MV E max kaitlynn: MV P1/2t max kaitlynn: Ao V2 max: AI max kaitlynn: 59.6 cm/sec 61.0 cm/sec 169.7 cm/sec 333.9 cm/sec MV A max kaitlynn: MV P1/2t: 47.5 msec Ao max PG: AI max P.9 cm/sec 11.5 mmHg 44.6 mmHg MV E/A: 0.51 MVA(P1/2t): 4.6 cm2 AI dec slope: MV dec slope: 376.1 cm/sec2 354.1 cm/sec2 AI P1/2t: 276.2 msec LV V1 max PG: PA V2 max: 6.1 mmHg 117.9 cm/sec LV V1 max: PA max P.6 mmHg 123.4 cm/sec Left Ventricle The left ventricle is grossly normal size. There is borderline concentric left ventricular hypertrophy. The left ventricular ejection fraction is normal. Doppler measurements suggest pseudonormalized left ventricular relaxation, which is associated with grade II/IV or mild to moderate diastolic dysfunction. Wall motion cannot be accurately commented on, but no definite regional wall motion abnormalities noted. Right Ventricle The right ventricle is grossly normal size. The right ventricular systolic function is normal. Atria The right atrium is normal. The left atrial size is normal. Mass noted, approx. 1.5X2.0 cm arising from R side of Interatrial septum and protruding into the RA, most consistent with lipomatous hypertrophy vs lipoma vs myxoma. Rec. Cardiac MRI/Cardaic CTA. Mitral Valve The mitral valve is grossly normal. There is no mitral valve stenosis. There is a trace amount of mitral regurgitation. Aortic Valve The aortic valve is mildly calcified. There is no aortic valve stenosis. No aortic regurgitation is present. Tricuspid Valve The tricuspid valve is not well visualized secondary to technical limitations. There is no tricuspid stenosis. No tricuspid regurgitation. Pulmonic Valve The pulmonic valve is not well visualized. Great Vessels The aortic root is not well visualized but is probably normal size. The inferior vena cava was not well visualized. Effusions There is no pericardial effusion. : MARIA ISABEL UCNHA > Tank Guerrero
[2017-12-25] MEDS: GUAIFENESIN 600 MG TABLET.SA PO SCH (20:56)
[2017-12-25] MEDS: ATORVASTATIN CALCIUM 10 MG TABLET PO SCH (20:56)
--- NOTE | 2017-12-25 21:15 | EKG REPORT ---
SEVERITY:- ABNORMAL ECG - SINUS TACHYCARDIA LEFT AXIS DEVIATION LOW VOLTAGE IN FRONTAL LEADS BORDERLINE R WAVE PROGRESSION, ANTERIOR LEADS BORDERLINE T ABNORMALITIES, ANT-LAT LEADS : Confirmed by: Tank Guerrero 25-Dec-2017 21:14:52
[2017-12-25] MEDS ORDERED: NICOTINE 14 MG/24 HR PATCH.TD24 TD ONE (21:30)
[2017-12-26] MEDS: METHYLPREDNISOLONE INJ 125 MG/2 ML SDV IV SCH ×4 (02:00→22:32)
[2017-12-26 02:58] LABS: CREATINE KINASE MB 1.87 ng/mL (<4.55)
[2017-12-26 02:59] LABS: TROPONIN I < 0.012 ng/mL
[2017-12-26] MEDS: IPRATROPIUM/ALBUTEROL 0.5-2.5 MG/3 ML AMPUL NEB SCH ×6 (04:42→23:28)
[2017-12-26] MEDS: THYROID (PORK) 60 MG TABLET PO SCH (05:44)
[2017-12-26 05:50] LABS: HEMATOCRIT 45.1 % (36.0-47.0); HEMOGLOBIN 15.2 g/dL (12.0-15.5); MEAN CORPUSCULAR HEMOGLOBIN 31.1 pg (27.0-33.4); MEAN CORPUSCULAR HGB CONC 33.7 g/dL (32.0-36.0); MEAN CORPUSCULAR VOLUME 92 fl (80-97); PLATELET COUNT 211 10^3/uL (150-450); RED CELL DISTRIBUTION WIDTH 13.8 % (11.5-14.0)
[2017-12-26 06:15] LABS: ANION GAP 12 (5-19); BLOOD UREA NITROGEN 30 mg/dL (7-20); CALCIUM 9.8 mg/dL (8.4-10.2); CARBON DIOXIDE 29 mmol/L (22-30); CHLORIDE 99 mmol/L (98-107); GLUCOSE 131 mg/dL (75-110); PHOSPHORUS 4.1 mg/dL (2.5-4.5); POTASSIUM 4.4 mmol/L (3.6-5.0); SODIUM 140.4 mmol/L (137-145)
[2017-12-26] MEDS: BUDESONIDE NEB 0.5 MG/2 ML AMPUL NEB SCH ×2 (08:01→19:43)
[2017-12-26] MEDS: ENOXAPARIN SODIUM INJ 40 MG/0.4 ML DISP.SYRIN SUBCUT SCH (11:25)
[2017-12-26] MEDS: FUROSEMIDE 40 MG TABLET PO SCH (11:33)
[2017-12-26] MEDS: BUPROPION HCL 100 MG TABLET PO SCH (11:35)
[2017-12-26] MEDS: ASPIRIN 81 MG TABLET, ENT COATED PO SCH (11:36)
[2017-12-26] MEDS: CYANOCOBALAMIN (VITAMIN B-12) 1,000 MCG TABLET PO SCH (11:36)
[2017-12-26] MEDS: MULTIVITAMIN TABLET PO SCH (11:37)
[2017-12-26] MEDS: GUAIFENESIN 600 MG TABLET.SA PO SCH ×2 (11:37→22:33)
[2017-12-26] MEDS: POLYETHYLENE GLYCOL 3350 POWDER 17 GM/1 PACKET PO SCH (11:37)
[2017-12-26] MEDS: NICOTINE 14 MG/24 HR PATCH.TD24 TD SCH (11:38)
[2017-12-26] MEDS: TAMSULOSIN HCL 0.4 MG CAP.SR.24H PO SCH (11:42)
[2017-12-26] MEDS: LOSARTAN POTASSIUM 25 MG TABLET PO SCH (11:43)
[2017-12-26] MEDS: TIOTROPIUM BROMIDE DPI 5 CAP/KIT (18 MCG/CAP) IH SCH (11:44)
[2017-12-26] MEDS ORDERED: SALMETEROL XINAFOATE DISKUS 50 MCG/1 DOSE 28 DOSE IH ONE (12:00)
--- NOTE | 2017-12-26 16:58 | PDOC PROGRESS REPORT ---
Subjective Progress Note for:: 12/26/17 Subjective:: JOHAN WREN is a 72 year old female who was a direct admit from Dr. Flanagan's office for persistent shortness of breath, weakness, and dyspnea on exertion for 6 weeks. The patient was recently treated with a two-week course of Levaquin. She was admitted to [facility] for failed outpatient treatment. 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 The patient was seen this morning on rounds. She states that she "I feel the BEST I've felt" in a while. Upon assessment, very mild wheezing was heard in all lung joshua. The patient is sitting up in her bedside recliner on continuous supplemental oxygen at 2 L/min. +1 pitting edema noted in bilateral lower extremities, significantly improved since yesterday. The patient states that her lower legs and feet "dont feel so tight." Reason For Visit: COPD EXACERBATION Physical Exam Vital Signs: Temp Pulse Resp BP Pulse Ox 98.0 F 89 16 133/66 H 95 12/26/17 12:00 12/26/17 15:55 12/26/17 15:55 12/26/17 12:00 12/26/17 15:55 Pulse Oximeter Continuous Start: 12/26/17 11: 52 Freq: RTQ4 Status: Active Document 12/26/17 15:55 LDA (Rec: 12/26/17 16:06 LDA [email or web address]) Pulse Oximetry Assessment Oxygen Saturation (92-100) 95 Oxygen Flow Rate (L/min) 2 Oxygen Delivery Method Nasal Cannula Fraction of Inspired Oxygen (FIO2) 28 Equipment Usage Equipment in Use Continuous SpO2 Machine # n-[id number] Intake & Output 12/25/17 12/26/17 12/27/17 06:59 06:59 06:59 Intake Total 560 1723 Output Total 500 1425 Balance 60 298 Weight 103.9 kg 101.4 kg General appearance: PRESENT: no acute distress Head exam: PRESENT: atraumatic Eye exam: PRESENT: conjunctiva pink, PERRLA Mouth exam: PRESENT: moist Results Laboratory Results: 12/26/17 04:27 12/26/17 04:27 12/26/17 12/26/17 04:27 04:27 WBC 15.0 H RBC 4.90 Hgb 15.2 Hct 45.1 MCV 92 MCH 31.1 MCHC 33.7 RDW 13.8 Plt Count 211 Sodium 140.4 Potassium 4.4 Chloride 99 Carbon Dioxide 29 Anion Gap 12 BUN 30 H Creatinine 0.70 Est GFR ( Amer) > 60 Est GFR (Non-Af Amer) > 60 Glucose 131 H Calcium 9.8 Phosphorus 4.1 Magnesium 2.1 12/25/17 12/25/17 12/25/17 10:25 10:25 17:50 Creatine Kinase 42 57 CK-MB (CK-2) 1.56 Troponin I < 0.012 12/25/17 12/26/17 12/26/17 17:50 01:51 01:51 Creatine Kinase 64 CK-MB (CK-2) 1.71 1.87 Troponin I < 0.012 < 0.012 Impressions: Chest X-Ray 12/24/17 00:00 IMPRESSION: NO ACUTE RADIOGRAPHIC FINDING IN THE CHEST. Status: Imported from PACS Assessment & Plan - Diagnosis (1) Acute and chronic respiratory failure ([id number]) Qualifiers: Respiratory failure complication: hypoxia Qualified Code(s): J96.21 - Acute and chronic respiratory failure with hypoxia Is this a current diagnosis for this admission?: Yes Plan: Secondary to URI and COPD exacerbation Patient reports 6 week history of dyspnea on exertion, wheezing, and cough 2 week course of Levaquin completed Wheezing auscultated in all lung joshua, initiate IV solumedrol and scheduled nebulizers Supplemental oxygen during daytime to maintain SPO2>88% CPAP at night Chest xray benign Incentive spirometry at bedside along with flutter valve There is a high likelihood that the patient will need to be discharged home on continuous O2. She currently only uses her home O2 for a few hours a day or if she feels out of breath. (2) COPD (chronic obstructive pulmonary disease) Qualifiers: COPD type: unspecified COPD Qualified Code(s): J44.9 - Chronic obstructive pulmonary disease, unspecified Is this a current diagnosis for this admission?: Yes Plan: Patient endorses history of COPD, still smokes approx. 6 cigarettes per day. Patient states she is trying to quit. COPD exacerbation likely secondary to URI Patient reports 6 week history of dyspnea on exertion, wheezing, and cough 2 week course of Levaquin completed, no plan for further antibiotic treatment at this time. The patient is afebrile, no leukocytosis, and nontoxic appearing. Patient placed on continuous supplemental oxygen via nasal cannula to maintain SPO2>88%, patient will likely need to be discharged home on [id number] supplemental oxygen. The patient reported that prior to her admission, she only used the nasal cannula for a few hours per day or when she was feeling short of breath. Continue home COPD medications - Spiriva, Brovana, Pulmicort, ProAir Increased IV Solumedrol to 80mg q6h, continue scheduled Duonebs, PRN xopenex Pulmonology consulted, Dr. Drake states the patient will likely have to go home on continuous nasal cannula. No other medication recommendations. Extensive amount of time (>10 minutes) spent counseling the patient about smoking cessation. (3) Essential hypertension Is this a current diagnosis for this admission?: Yes Plan: The patient endorses a history of HTN Will continue home dose Loartan Continue daily ASA and statin therapy +1 pitting edema in bilateral lower extremities, significantly improved since yesterday. Continue daily PO lasix, home dose increased from 40 to 60mg. (4) Obstructive sleep apnea Is this a current diagnosis for this admission?: Yes Plan: Patient endorses a history of ESCOBAR, uses CPAP each night Will continue while inpatient - Time Time Spent with patient: 15-24 minutes Smoking Cessation Education: 3 to 10 minutes Medications reviewed and adjusted accordingly: Yes Anticipated discharge: Home Within: within 24 hours - Inpatient Certification Based on my medical assessment, after consideration of the patient's comorbidities, presenting symptoms, or acuity I expect that the services needed warrant INPATIENT care.: Yes I certify that my determination is in accordance with my understanding of Medicare's requirements for reasonable and necessary INPATIENT services [42 CFR 412.3e].: Yes Medical Necessity: Need For Continuous Telemetry Monitoring, Need for Nebulizer Therapy and Monitoring of Response, Risk of Complication if Not Cared For in Hospital - Plan Summary Plan Summary: If the patient's vital signs remain stable over the next 24hrs, plan to discharge her home with pulmonary rehab and follow up to Dr. Drake
[2017-12-26] MEDS: ATORVASTATIN CALCIUM 10 MG TABLET PO SCH (22:33)
[2017-12-26] MEDS: SALMETEROL XINAFOATE DISKUS 50 MCG/1 DOSE 28 DOSE IH SCH (22:33)
[2017-12-27] MEDS: METHYLPREDNISOLONE INJ 125 MG/2 ML SDV IV SCH ×3 (02:19→15:10)
[2017-12-27] MEDS: IPRATROPIUM/ALBUTEROL 0.5-2.5 MG/3 ML AMPUL NEB SCH ×3 (04:08→12:19)
[2017-12-27] MEDS: THYROID (PORK) 60 MG TABLET PO SCH (05:51)
[2017-12-27 07:26] LABS: HEMOGLOBIN 15.4 g/dL (12.0-15.5); MEAN CORPUSCULAR HEMOGLOBIN 31.1 pg (27.0-33.4); MEAN CORPUSCULAR HGB CONC 33.4 g/dL (32.0-36.0); MEAN CORPUSCULAR VOLUME 93 fl (80-97); RED BLOOD COUNT 4.95 10^6/uL (3.72-5.28); RED CELL DISTRIBUTION WIDTH 14.1 % (11.5-14.0); WHITE BLOOD COUNT 16.2 10^3/uL (4.0-10.5)
[2017-12-27] MEDS: BUDESONIDE NEB 0.5 MG/2 ML AMPUL NEB SCH (07:43)
[2017-12-27 08:07] LABS: PLATELET COUNT 180 10^3/uL (150-450)
[2017-12-27 08:27] LABS: ANION GAP 11 (5-19); BLOOD UREA NITROGEN 32 mg/dL (7-20); CALCIUM 9.9 mg/dL (8.4-10.2); CARBON DIOXIDE 32 mmol/L (22-30); CHLORIDE 97 mmol/L (98-107); GLUCOSE 127 mg/dL (75-110); PHOSPHORUS 3.9 mg/dL (2.5-4.5); POTASSIUM 4.4 mmol/L (3.6-5.0); SODIUM 139.9 mmol/L (137-145)
[2017-12-27] MEDS: GUAIFENESIN 600 MG TABLET.SA PO SCH (10:45)
[2017-12-27] MEDS: MULTIVITAMIN TABLET PO SCH (10:46)
[2017-12-27] MEDS: TIOTROPIUM BROMIDE DPI 5 CAP/KIT (18 MCG/CAP) IH SCH (10:46)
[2017-12-27] MEDS: CYANOCOBALAMIN (VITAMIN B-12) 1,000 MCG TABLET PO SCH (10:46)
[2017-12-27] MEDS: BUPROPION HCL 100 MG TABLET PO SCH (10:46)
[2017-12-27] MEDS: ASPIRIN 81 MG TABLET, ENT COATED PO SCH (10:46)
[2017-12-27] MEDS: ENOXAPARIN SODIUM INJ 40 MG/0.4 ML DISP.SYRIN SUBCUT SCH (10:47)
[2017-12-27] MEDS: NICOTINE 14 MG/24 HR PATCH.TD24 TD SCH (10:47)
[2017-12-27] MEDS: SALMETEROL XINAFOATE DISKUS 50 MCG/1 DOSE 28 DOSE IH SCH (10:47)
[2017-12-27] MEDS: TAMSULOSIN HCL 0.4 MG CAP.SR.24H PO SCH (10:47)
[2017-12-27] MEDS: POLYETHYLENE GLYCOL 3350 POWDER 17 GM/1 PACKET PO SCH (10:47)
[2017-12-27] MEDS: FUROSEMIDE 40 MG TABLET PO SCH (10:51)
[2017-12-27] MEDS: LOSARTAN POTASSIUM 25 MG TABLET PO SCH (10:51)
[2017-12-27 14:41] VITALS: BP 111/59
--- NOTE | 2017-12-27 17:30 | PDOC CONSULTATION ---
Consultation Consult Date: 12/24/17 Attending physician:: LINO MIKE Consult reason:: dyspnea History of Present Illness Admission Date/PCP: 12/24/17 12:27 SHERMAN MCCLAIN MD History of Present Illness: JOHAN WREN is a 72 year old female She admits to shortness of breath as well as dyspnea on exertion and has a history of COPD and takes multiple medications she [id number] female patient of Dr. Sissy Lazcano was a direct admit for increasing shortness of breath over the last 6 weeks cyst has a cough that she is dry nonproductive she denies hemoptysis her PPD status is negative dates unknown she had no history of chronic lung disease specifically chronic lung disease as a child or adolescent although she states her had a lifelong problem with my lungs she admits to exposure to passive smoke as a child as well as an adult she herself has never smoked she has worked she has declined it any known exposure to potential pulmonary respiratory toxins's no pets no recent travel she admits to occasional tightness in her chest sleeps on 1-2 pillows occasional PND occasional nocturnal cough frequent edema she has a diagnosis of obstructive sleep apnea and wears her CPAP nightly Past Medical History Cardiac Medical History: Reports: Coronary Artery Disease, Hypertension Denies: Myocardial Infarction Pulmonary Medical History: Reports: Asthma - on home nebs & O2 3-3.5 , Bronchitis, Chronic Obstructive Pulmonary Disease (COPD), Respiratory Failure - Chronic hypoxemic on home oxygen, Sleep Apnea - On CPAP Denies: Pneumonia Neurological Medical History: Denies: Seizures Endocrine Medical History: Reports: Hypothyroidism Malignancy Medical History: Reports: Breast Cancer, Colorectal Cancer GI Medical History: Denies: Hepatitis, Hiatal Hernia Musculoskeltal Medical History: Reports: Arthritis - generalized Psychiatric Medical History: Reports: Depression Hematology: Denies: Anemia, Sickle Cell Disease Past Surgical History Past Surgical History: Reports: Cholecystectomy, Mastectomy - DOUBLE, NO NEED TO AVOID ARM, Other - History of surgery for vulvar and colon cancer, currently cancer free Denies: Amputation, Hysterectomy, Pacemaker Social History Information Source: Patient, [facility] Records Smoking Status: Former Smoker Passive smoke exposure as: Both Frequency of Alcohol Use: None Hx Recreational Drug Use: No Drugs: None Hx Prescription Drug Abuse: No Do you have pets?: No Have you had any respiratory illnesses as a child?: Yes Have you been exposed to any sick contacts recently?: No Have you had any recent respiratory illnesses?: Yes Have you travelled outside of [place] in the past 12 months?: No Family History Family History: CAD Parental Family History Reviewed: Yes Children Family History Reviewed: Yes Sibling(s) Family History Reviewed.: Yes Medication/Allergy Home Medications: Albuterol Sulfate [Albuterol Sulfate 2.5mg/3 mL] 1 vial NEB RTQIDP PRN 12/25/16 Albuterol Sulfate [Proair HFA Inhalation Aerosol 8.5 gm MDI] 2 puff IH Q4HP PRN 12/25/16 Arformoterol Tartrate [Brovana Inhalation Solution 15 mcg/2 mL] 1 vial NEB RTBID 12/25/16 Aspirin [Aspirin EC] 81 mg PO DAILY 12/25/16 Docusate Sodium [Colace 100 mg Capsule] 100 mg PO BID 12/25/16 Naproxen 500 mg PO BIDP PRN 12/25/16 Pravastatin Sodium [Pravachol] 40 mg PO QHS 12/25/16 Glucosamine HCl/Chondro Mccloud A [Glucosamine Chondroitin Cap] 1 cap PO BID Guaifenesin [Mucinex] 600 mg PO BIDP PRN 03/27/17 Losartan Potassium 25 mg PO DAILY 03/27/17 Potassium Chloride 10 meq PO TUTHSA@0800 MDD TAKES WITH LASIX 03/27/17 Tiotropium [place] [Spiriva Handihaler 5 Cap/Kit (18 Mcg/Cap)] 1 cap IH DAILY Budesonide [Pulmicort Neb 0.5 mg/2 ml Ampul] 0.5 mg NEB RTQ12 12/24/17 Cyanocobalamin (Vitamin B-12) [Vitamin B-12 1000 mcg Tablet] 1,000 mcg PO DAILY 12/24/17 Estradiol [Estrace] 1 gm VG QHS 12/24/17 Furosemide [Lasix 40 mg Tablet] 40 mg PO QAM 12/24/17 Multivitamin [Tab-A-Jonny (Multiple Vitamin) Tablet] 1 tab PO DAILY 12/24/17 Selenium [Selenimin] 600 mcg PO Q12 12/24/17 Tamsulosin HCl [Flomax 0.4 mg Cap.sr] 0.4 mg PO DAILY 12/24/17 Thyroid (Pork) [[place] Thyroid 60 mg Tablet] 150 mg PO Q6AM 12/24/17 Ubidecarenone [Co Q-10] 100 mg PO DAILY 12/24/17 Vitamin E 1,000 unit PO DAILY 12/24/17 Zinc Sulfate [Zinc-220 Capsule] 220 mg PO QHS 12/24/17 Bupropion HCl [Wellbutrin 100 mg Tablet] 150 mg PO DAILY tablet 12/27/17 Prednisone 20 mg PO DAILY #14 tablet 12/27/17 Allergies/Adverse Reactions: doxycycline [Doxycycline] Allergy (Severe, Verified 03/27/17 13:49) VOMITING Opioids - Morphine Analogues Allergy (Severe, Verified 03/27/17 13:49) Anaphylaxis Penicillins Allergy (Verified 03/27/17 13:49) Anaphylaxis Review of Systems Constitutional: PRESENT: chills, fatigue, headache(s). ABSENT: anorexia, fever( s), night sweats, weakness Eyes: ABSENT: visual disturbances Ears: ABSENT: hearing changes Nose, Mouth, and Throat: PRESENT: sore throat. ABSENT: mouth pain Cardiovascular: PRESENT: dyspnea on exertion. ABSENT: palpitations Respiratory: PRESENT: cough. ABSENT: hemoptysis Gastrointestinal: PRESENT: heartburn, melena. ABSENT: abdominal pain, bloating , coffee ground emesis, dysphagia, hematemesis, hematochezia Genitourinary: ABSENT: dysuria, hematuria Musculoskeletal: ABSENT: deformity, joint swelling Integumentary: ABSENT: pruritus, rash Neurological: ABSENT: abnormal gait, abnormal movements, abnormal speech, confusion, focal weakness, frequent falls, lack of coordination, memory loss Psychiatric: ABSENT: hallucinations, homidical ideation, suicidal ideation Endocrine: ABSENT: cold intolerance, heat intolerance, menstrual abnormalities, polydipsia, polyuria Hematologic/Lymphatic: PRESENT: easy bruising Allergic/Immunologic: PRESENT: seasonal rhinorrhea Physical Exam Vital Signs: Temp Pulse Resp BP Pulse Ox 97.6 F 98 20 119/73 92 12/24/17 20:17 12/24/17 20:17 12/24/17 20:17 12/24/17 20:17 12/24/17 20:17 Intake & Output 12/23/17 12/24/17 12/25/17 06:59 06:59 06:59 Intake Total 10 Balance 10 Weight 98.3 kg General appearance: PRESENT: no acute distress, cooperative, disheveled, morbidly obese Head exam: PRESENT: atraumatic, normocephalic Eye exam: PRESENT: conjunctiva pale, EOMI. ABSENT: nystagmus, periorbital swelling, scleral icterus Mouth exam: PRESENT: moist, neck supple, tongue midline Neck exam: ABSENT: carotid bruit, JVD, lymphadenopathy, thyromegaly, tracheal deviation, tracheostomy Respiratory exam: PRESENT: decreased breath sounds, prolonged expiratory phas, rales, rhonchi, symmetrical, unlabored, wheezes. ABSENT: retraction, stridor, tachypnea Cardiovascular exam: PRESENT: RRR, +S1, +S2 Pulses: PRESENT: normal radial pulses GI/Abdominal exam: PRESENT: diminished bowel sounds, soft Extremities exam: PRESENT: full ROM, +1 edema. ABSENT: clubbing, joint swelling Musculoskeletal exam: PRESENT: full ROM. ABSENT: deformity Neurological exam: PRESENT: alert, awake Focused psych exam: PRESENT: internal stimuli Skin exam: PRESENT: dry, warm Results Laboratory Results: 12/24/17 14:44 12/24/17 14:44 12/24/17 12/24/17 14:44 14:44 WBC 12.4 H RBC 5.40 H Hgb 16.5 H Hct 49.4 H MCV 92 MCH 30.6 MCHC 33.5 RDW 13.7 Plt Count 233 Seg Neutrophils % 69.1 Lymphocytes % 24.0 Monocytes % 5.7 Eosinophils % 0.1 Basophils % 1.1 Absolute Neutrophils 8.5 H Absolute Lymphocytes 3.0 Absolute Monocytes 0.7 Absolute Eosinophils 0.0 Absolute Basophils 0.1 Sodium 141.0 Potassium 4.2 Chloride 104 Carbon Dioxide 26 Anion Gap 11 BUN 22 H Creatinine 0.89 Est GFR ( Amer) > 60 Est GFR (Non-Af Amer) > 60 Glucose 105 Calcium 9.6 Phosphorus 4.5 Magnesium 1.9 Impressions: Chest X-Ray 12/24/17 00:00 IMPRESSION: NO ACUTE RADIOGRAPHIC FINDING IN THE CHEST. Assessment & Plan - Diagnosis (1) Acute and chronic respiratory failure ([id number]) Qualifiers: Respiratory failure complication: hypoxia Qualified Code(s): J96.21 - Acute and chronic respiratory failure with hypoxia Is this a current diagnosis for this admission?: Yes Plan: Primary hypoxemic as patient displays no evidence of hypercapnia or ventilatory abnormalities continue bronchodilator therapy as you have recommended also consider MUGA or echocardiogram (2) COPD (chronic obstructive pulmonary disease) Qualifiers: COPD type: unspecified COPD Qualified Code(s): J44.9 - Chronic obstructive pulmonary disease, unspecified Is this a current diagnosis for this admission?: Yes Plan: Discontinued Medications Generic Name Dose Route Start Last Admin Trade Name Freq PRN Reason Stop Dose Admin Albuterol 2 puff 12/24/17 15:39 Proair Hfa Inhalation Aerosol 8.5 Gm Mdi IH 01/23/18 15:38 Q4HP PRN FOR WHEEZING Budesonide 0.5 mg 12/24/17 20:00 12/27/17 07:43 Pulmicort Neb 0.5 Mg/2 Ml Ampul NEB 01/23/18 19:59 0.5 mg RTQ12 EVA Methylprednisolone Sodium Succinate 80 mg 12/25/17 16:55 12/27/17 15:10 Solu-Medrol Inj/Pf 125 Mg/2 Ml Sdv IV 01/24/18 16:54 Not Given Q6A EVA Nicotine 1 each 12/26/17 10:00 12/27/17 10:47 Nicoderm 14 Mg/24 Hr Transdermal Patch TD 01/25/18 09:59 1 each DAILY EVA Tiotropium [place] 1 cap 12/25/17 10:00 12/27/17 10:46 Spiriva Handihaler 5 Cap/Kit (18 Mcg/Cap) IH 01/24/18 09:59 1 cap DAILY EVA (3) Essential hypertension Is this a current diagnosis for this admission?: Yes (4) Obstructive sleep apnea Is this a current diagnosis for this admission?: Yes Plan: Continue CPAP as prescribed (5) Valvular heart disease Is this a current diagnosis for this admission?: Yes Plan: Echocardiogram admits that he had problems suggested. Cardiac component
--- NOTE | 2017-12-29 20:10 | PDOC PROGRESS REPORT ---
Subjective Progress Note for:: 12/25/17 Subjective:: Unchanged Reason For Visit: COPD EXACERBATION Physical Exam Vital Signs: Temp Pulse Resp BP Pulse Ox 98.3 F 100 16 111/59 L 96 12/27/17 14:39 12/27/17 14:39 12/27/17 14:39 12/27/17 14:39 12/27/17 14:39 Pulse Oximeter Continuous Start: 12/26/17 11: 52 Freq: RTQ4 Status: Discharge Document 12/27/17 12:19 LDA (Rec: 12/27/17 14:17 LDA [email or web address]) Pulse Oximetry Assessment Oxygen Saturation (92-100) 96 Oxygen Flow Rate (L/min) 2 Oxygen Delivery Method Nasal Cannula Fraction of Inspired Oxygen (FIO2) 28 Equipment Usage Equipment in Use Continuous SpO2 Machine # [id number] Intake & Output 12/26/17 12/27/17 12/28/17 06:59 06:59 06:59 Intake Total 1723 1882 Output Total 1425 1925 Balance 298 -43 Weight 101.4 kg 101.2 kg General appearance: PRESENT: no acute distress, disheveled, morbidly obese, well -developed Head exam: PRESENT: atraumatic, normocephalic Eye exam: PRESENT: conjunctiva pale. ABSENT: nystagmus, periorbital swelling, scleral icterus Mouth exam: PRESENT: dry mucosa, neck supple, tongue midline Neck exam: ABSENT: carotid bruit, JVD, lymphadenopathy, thyromegaly, tracheal deviation, tracheostomy Respiratory exam: PRESENT: decreased breath sounds, prolonged expiratory phas, rales, rhonchi, unlabored. ABSENT: retraction, stridor, tachypnea Cardiovascular exam: PRESENT: RRR, +S1, +S2 Pulses: PRESENT: normal radial pulses GI/Abdominal exam: PRESENT: diminished bowel sounds, soft Extremities exam: ABSENT: calf tenderness, clubbing, joint swelling Neurological exam: PRESENT: awake Skin exam: PRESENT: dry, warm Results Laboratory Results: 12/27/17 06:27 12/27/17 07:57 12/27/17 12/27/17 12/27/17 06:27 06:27 07:57 WBC 16.2 H RBC 4.95 Hgb 15.4 Hct 46.0 MCV 93 MCH 31.1 MCHC 33.4 RDW 14.1 H Plt Count 180 Sodium Cancelled 139.9 Potassium Cancelled 4.4 Chloride Cancelled 97 L Carbon Dioxide Cancelled 32 H Anion Gap Cancelled 11 BUN Cancelled 32 H Creatinine Cancelled 0.74 Est GFR ( Amer) Cancelled > 60 Est GFR (Non-Af Amer) Cancelled > 60 Glucose Cancelled 127 H Calcium Cancelled 9.9 Phosphorus Cancelled 3.9 Magnesium Cancelled 2.3 12/25/17 12/25/17 12/25/17 10:25 10:25 17:50 Creatine Kinase 42 57 CK-MB (CK-2) 1.56 Troponin I < 0.012 12/25/17 12/26/17 12/26/17 17:50 01:51 01:51 Creatine Kinase 64 CK-MB (CK-2) 1.71 1.87 Troponin I < 0.012 < 0.012 Impressions: Chest X-Ray 12/24/17 00:00 IMPRESSION: NO ACUTE RADIOGRAPHIC FINDING IN THE CHEST. Assessment & Plan - Diagnosis (1) Acute and chronic respiratory failure ([id number]) Qualifiers: Respiratory failure complication: hypoxia Qualified Code(s): J96.21 - Acute and chronic respiratory failure with hypoxia Is this a current diagnosis for this admission?: Yes Plan: Primary hypoxemic as patient displays no evidence of hypercapnia or ventilatory abnormalities continue bronchodilator therapy as you have recommended also consider MUGA or echocardiogram (2) COPD (chronic obstructive pulmonary disease) Qualifiers: COPD type: unspecified COPD Qualified Code(s): J44.9 - Chronic obstructive pulmonary disease, unspecified Is this a current diagnosis for this admission?: Yes Plan: Discontinued Medications Generic Name Dose Route Start Last Admin Trade Name Freq PRN Reason Stop Dose Admin Albuterol 2 puff 12/24/17 15:39 Proair Hfa Inhalation Aerosol 8.5 Gm Mdi IH 01/23/18 15:38 Q4HP PRN FOR WHEEZING Budesonide 0.5 mg 12/24/17 20:00 12/27/17 07:43 Pulmicort Neb 0.5 Mg/2 Ml Ampul NEB 01/23/18 19:59 0.5 mg RTQ12 EVA Methylprednisolone Sodium Succinate 80 mg 12/25/17 16:55 12/27/17 15:10 Solu-Medrol Inj/Pf 125 Mg/2 Ml Sdv IV 05/20/18 16:54 Not Given Q6A EVA Nicotine 1 each 12/26/17 10:00 12/27/17 10:47 Nicoderm 14 Mg/24 Hr Transdermal Patch TD 01/25/18 09:59 1 each DAILY EVA Tiotropium [place] 1 cap 12/25/17 10:00 12/27/17 10:46 Spiriva Handihaler 5 Cap/Kit (18 Mcg/Cap) IH 01/24/18 09:59 1 cap DAILY EVA (3) Essential hypertension Is this a current diagnosis for this admission?: Yes (4) Obstructive sleep apnea Is this a current diagnosis for this admission?: Yes Plan: Continue CPAP as prescribed (5) Valvular heart disease Is this a current diagnosis for this admission?: Yes Plan: Echocardiogram admits that he had problems suggested. Cardiac component
--- NOTE | 2018-01-06 09:15 | PDOC DISCHARGE SUMMARY ---
General - Admit/Disc Date/PCP Admission Date/Primary Care Provider: 12/24/17 12:27 SHERMAN FLANAGAN MD Discharge Date: 12/27/17 - Discharge Diagnosis (1) Acute and chronic respiratory failure ([id number]) Is this a current diagnosis for this admission?: Yes Summary: Secondary to URI and COPD exacerbation Patient reports 6 week history of dyspnea on exertion, wheezing, and cough 2 week course of Levaquin completed Wheezing auscultated in all lung joshua, initiated IV solumedrol and scheduled nebulizers. Transitioned to PO prednisone Continuous supplemental oxygen during daytime to maintain SPO2>88% CPAP at night Chest xray benign Incentive spirometry at bedside along with flutter valve The patient was discharged home on continuous O2, which she normally does not use. She currently only uses her home O2 for a few hours a day or if she feels out of breath. (2) COPD (chronic obstructive pulmonary disease) Is this a current diagnosis for this admission?: Yes Summary: Patient endorses history of COPD, still smokes approx. 6 cigarettes per day. Patient states she is trying to quit. COPD exacerbation likely secondary to URI Patient reports 6 week history of dyspnea on exertion, wheezing, and cough 2 week course of Levaquin completed, no plan for further antibiotic treatment at this time. The patient is afebrile, no leukocytosis, and nontoxic appearing. Patient placed on continuous supplemental oxygen via nasal cannula to maintain SPO2>88%, discharged home on [id number] supplemental oxygen. The patient reported that prior to her admission, she only used the nasal cannula for a few hours per day or when she was feeling short of breath. Continue home COPD medications - Spiriva, Brovana, Pulmicort, ProAir Was placed on IV Solumedrol to 80mg q6h, scheduled Duonebs, PRN xopenex. Transitioned to PO prednisone prior to discharge Pulmonology consulted, Dr. Drake states the patient will likely have to go home on continuous nasal cannula. No other medication recommendations. Extensive amount of time (>10 minutes) spent counseling the patient about smoking cessation. (3) Essential hypertension Is this a current diagnosis for this admission?: Yes Summary: The patient endorses a history of HTN Will continue home dose Loartan Continue daily ASA and statin therapy +1 pitting edema in bilateral lower extremities, significantly improved over the course of hospitalization with IV lasix. Discharged home with instructions to resume home dose lasix. (4) Obstructive sleep apnea Is this a current diagnosis for this admission?: Yes Summary: Patient endorses a history of ESCOBAR, uses CPAP each night Continued while inpatient - Additional Information Resuscitation Status: Full Code Discharge Diet: As Tolerated Discharge Activity: Activity As Tolerated Prescriptions: Prednisone 20 mg PO DAILY #14 tablet Home Medications: Albuterol Sulfate [Albuterol Sulfate 2.5mg/3 mL] 1 vial NEB RTQIDP PRN 12/25/16 Albuterol Sulfate [Proair HFA Inhalation Aerosol 8.5 gm MDI] 2 puff IH Q4HP PRN 12/25/16 Arformoterol Tartrate [Brovana Inhalation Solution 15 mcg/2 mL] 1 vial NEB RTBID 12/25/16 Aspirin [Aspirin EC] 81 mg PO DAILY 12/25/16 Docusate Sodium [Colace 100 mg Capsule] 100 mg PO BID 12/25/16 Naproxen 500 mg PO BIDP PRN 12/25/16 Pravastatin Sodium [Pravachol] 40 mg PO QHS 12/25/16 Glucosamine HCl/Chondro Mccloud A [Glucosamine Chondroitin Cap] 1 cap PO BID Guaifenesin [Mucinex] 600 mg PO BIDP PRN 03/27/17 Losartan Potassium 25 mg PO DAILY 03/27/17 Potassium Chloride 10 meq PO TUTHSA@0800 MDD TAKES WITH LASIX 03/27/17 Tiotropium Coolidge [Spiriva Handihaler 5 Cap/Kit (18 Mcg/Cap)] 1 cap IH DAILY Budesonide [Pulmicort Neb 0.5 mg/2 ml Ampul] 0.5 mg NEB RTQ12 12/24/17 Cyanocobalamin (Vitamin B-12) [Vitamin B-12 1000 mcg Tablet] 1,000 mcg PO DAILY 12/24/17 Estradiol [Estrace] 1 gm VG QHS 12/24/17 Furosemide [Lasix 40 mg Tablet] 40 mg PO QAM 12/24/17 Multivitamin [Tab-A-Jonny (Multiple Vitamin) Tablet] 1 tab PO DAILY 12/24/17 Selenium [Selenimin] 600 mcg PO Q12 12/24/17 Tamsulosin HCl [Flomax 0.4 mg Cap.sr] 0.4 mg PO DAILY 12/24/17 Thyroid (Pork) [Elrod Thyroid 60 mg Tablet] 150 mg PO Q6AM 12/24/17 Ubidecarenone [Co Q-10] 100 mg PO DAILY 12/24/17 Vitamin E 1,000 unit PO DAILY 12/24/17 Zinc Sulfate [Zinc-220 Capsule] 220 mg PO QHS 12/24/17 Bupropion HCl [Wellbutrin 100 mg Tablet] 150 mg PO DAILY tablet 12/27/17 Prednisone 20 mg PO DAILY #14 tablet 12/27/17 History of Present Illness History of Present Illness: JOHAN WREN is a 72 year old female who was a direct admission from Dr. Flanagan 's office for persistent shortness of breath. The patient states she has been experiencing dyspnea, wheezing, non-productive cough, and weakness for 6 weeks. The patient reports that her symptoms are exacerbated with any type of exercise , but she experiences mild shortness of breath even at rest. When her dyspnea is severely exacerbated, she reports that she needs to TRIPOD in order to catch her breath. According to the progress note from Dr. Flanagan, the patient was recently treated with a 2 week course of Levaquin, her final day of treatment was supposed to be today. The patient has already been taking prednisone and mucinex, as well as her home medications ProAir, Brovana, Spiriva, Abluterol nebulizer, and pulmicort, but they offer no relief for her symptoms. 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 Sissy Flanagan CARDS: Dr. Ever Mcguire PULM: Dr. Orion Murcia Upon assessment, the patient is found to be sitting up in the bedside recliner on room air. The patient does not appear to be in any distress. She is able to answer questions appropriately and speak in full sentences without pause. Wheezing is auscultated in all lung joshua. +3 pitting edema is noted to the bilateral lower extremities. Hospital Course Hospital Course: The patient was treated with IV steroids and IV lasix. She did not receive antibiotics while she was at [facility]. Her symptoms dramatically improved. Additionally, the patient could not tolerate being without supplemental oxygen. It was explained to the patient that this is likely progression of her COPD, which will only continue to get worse if she continues to smoke. She was started in Wellbutrin while at [facility] as part of her smoking cessation program. The patient was evaluated by the hospital mending carrier, Dr. Drake. The patient expressed her desire to transition her care to his outpatient clinic. Additionally, the patient was given information about outpatient pulmonary rehab , which must be setup through Dr. Drake's office. Physical Exam Vital Signs: Temp Pulse Resp BP Pulse Ox 98.3 F 100 16 111/59 L 96 12/27/17 14:39 12/27/17 14:39 12/27/17 14:39 12/27/17 14:39 12/27/17 14:39 Pulse Oximeter Continuous Start: 12/26/17 11: 52 Freq: RTQ4 Status: Discharge Document 12/27/17 12:19 LDA (Rec: 12/27/17 14:17 [email or web address]) Pulse Oximetry Assessment Oxygen Saturation (92-100) 96 Oxygen Flow Rate (L/min) 2 Oxygen Delivery Method Nasal Cannula Fraction of Inspired Oxygen (FIO2) 28 Equipment Usage Equipment in Use Continuous SpO2 Machine # [id number] Results Laboratory Results: 12/27/17 06:27 12/27/17 07:57 12/25/17 12/25/17 12/25/17 10:25 10:25 17:50 Creatine Kinase 42 57 CK-MB (CK-2) 1.56 Troponin I < 0.012 12/25/17 12/26/17 12/26/17 17:50 01:51 01:51 Creatine Kinase 64 CK-MB (CK-2) 1.71 1.87 Troponin I < 0.012 < 0.012 Impressions: Chest X-Ray 12/24/17 00:00 IMPRESSION: NO ACUTE RADIOGRAPHIC FINDING IN THE CHEST. Status: Imported from PACS Qualifiers - * PATIENT BEING DISCHARGED WITH ANY OF THE FOLLOWING DIAGNOSIS: No Plan Discharge Plan: Discharge home with PO prednisone taper. May resume all other home medications. Close follow up with Dr. Drake's office and establish services with outpatient pulmonary rehab. Very lengthy conversations about smoking cessation. Time Spent: Greater than 30 Minutes
== END 2017-12-27 15:36 | disposition home or self-care (01) | DRG 190 ==
LOC: 5 12:27
PROVIDERS: ADMIT Internal Medicine; ATTEND Internal Medicine
PROC: 5A09357 Assistance with Respiratory Ventilation, Less than 24 Consecutive Hours, Continuous Positive Airway Pressure (ICD-10-PCS; principal; 2017-12-24)
PROC: 3E0F73Z Introduction of Anti-inflammatory into Respiratory Tract, Via Natural or Artificial Opening (ICD-10-PCS; 2017-12-24)
DX: J44.1 Chronic obstructive pulmonary disease with (acute) exacerbation (principal); J96.21 Acute and chronic respiratory failure with hypoxia; N39.0 Urinary tract infection, site not specified; I25.10 Atherosclerotic heart disease of native coronary artery without angina pectoris; I10 Essential (primary) hypertension; M15.9 Polyosteoarthritis, unspecified; F32.9 Major depressive disorder, single episode, unspecified; G47.33 Obstructive sleep apnea (adult) (pediatric); E06.3 Autoimmune thyroiditis; I35.1 Nonrheumatic aortic (valve) insufficiency; I37.1 Nonrheumatic pulmonary valve insufficiency; E78.00 Pure hypercholesterolemia, unspecified; J06.9 Acute upper respiratory infection, unspecified; Z99.81 Dependence on supplemental oxygen; Z85.038 Personal history of other malignant neoplasm of large intestine; Z85.3 Personal history of malignant neoplasm of breast; Z90.49 Acquired absence of other specified parts of digestive tract; Z90.13 Acquired absence of bilateral breasts and nipples; Z87.891 Personal history of nicotine dependence; Z79.899 Other long term (current) drug therapy; Z88.6 Allergy status to analgesic agent; Z88.3 Allergy status to other anti-infective agents; Z88.0 Allergy status to penicillin; Z86.73 Personal history of transient ischemic attack (TIA), and cerebral infarction without residual deficits; Z82.49 Family history of ischemic heart disease and other diseases of the circulatory system
CPT/HCPCS: 36415; 36600; 71046; 80048; 82550; 82553; 82803; 83735; 84100; 84484; 85025; 85027; 93005; 93010; 93306; 94640; 94660; 94667; 94762; 94799; J1650; J1940; J2930; J3490; J7620

== ENCOUNTER → 2018-04-13 | Outpatient (CLI) | payer MEDICARE ==
[2018-04-13 13:51] LABS: ABSOLUTE EOSINOPHILS # (AUTO) 0.1 10^3/uL (0.0-0.6); ABSOLUTE LYMPHOCYTES (AUTO) 2.4 10^3/uL (0.5-4.7); ABSOLUTE MONOCYTES (AUTO) 0.6 10^3/uL (0.1-1.4); ABSOLUTE NEUT (AUTO) 4.1 10^3/uL (1.7-8.2); BASOPHILS % (AUTO) 0.5 % (0-2); EOSINOPHILS % (AUTO) 1.2 % (0-6); HEMATOCRIT 42.3 % (36.0-47.0); HEMOGLOBIN 14.4 g/dL (12.0-15.5); LYMPHOCYTES % (AUTO) 33.2 % (13-45); MEAN CORPUSCULAR HEMOGLOBIN 31.7 pg (27.0-33.4); MEAN CORPUSCULAR HGB CONC 34.1 g/dL (32.0-36.0); MEAN CORPUSCULAR VOLUME 93 fl (80-97); MONOCYTES % (AUTO) 7.8 % (3-13); PLATELET COUNT 199 10^3/uL (150-450); RED BLOOD COUNT 4.56 10^6/uL (3.72-5.28); RED CELL DISTRIBUTION WIDTH 13.7 % (11.5-14.0); SEGMENTED NEUTROPHILS % (AUTO) 57.3 % (42-78); TOTAL CELLS COUNTED % (AUTO) 100 %; WHITE BLOOD COUNT 7.2 10^3/uL (4.0-10.5)
[2018-04-13 14:25] LABS: ANION GAP 13 (5-19); BLOOD UREA NITROGEN 13 mg/dL (7-20); CARBON DIOXIDE 33 mmol/L (22-30); CHLORIDE 106 mmol/L (98-107); GLUCOSE 99 mg/dL (75-110); POTASSIUM 4.6 mmol/L (3.6-5.0); SODIUM 151.9 mmol/L (137-145)
[2018-04-13 14:39] LABS: FREE T3 5.03 pg/mL (2.77-5.27); FREE T4 (FREE THYROXINE) 1.33 ng/dL (0.78-2.19)
== END ==
LOC: OD 13:01
PROVIDERS: ATTEND Family Medicine
DX: E03.9 Hypothyroidism, unspecified (principal); J45.50 Severe persistent asthma, uncomplicated
CPT/HCPCS: 36415; 80048; 84439; 84481; 85025

== ENCOUNTER → 2018-07-05 | Outpatient (CLI) | payer MEDICARE ==
--- NOTE | 2018-07-05 15:20 | RADIOLOGY REPORT (SQ) ---
EXAM DESCRIPTION: CT ABD/PELVIS WITH IV ONLY COMPLETED DATE/TIME: 07/05/2018 8:52 am REASON FOR STUDY: INCISIONAL HERNIA K43.2 INCISIONAL HERNIA WITHOUT OBSTRUCTION OR GANGRENE COMPARISON: None. TECHNIQUE: CT scan of the abdomen and pelvis performed using helical scanning technique with dynamic intravenous contrast injection. No oral contrast. Images reviewed with lung, soft tissue, and bone windows. Reconstructed coronal and sagittal MPR images reviewed. Delayed images for evaluation of the urinary system also acquired. All images stored on PACS. All CT scanners at this facility use dose modulation, iterative reconstruction, and/or weight based d osing when appropriate to reduce radiation dose to as low as reasonably achievable (ALARA). [facility]: Dose Right [facility]: CareDose [facility]: Dose Right [facility]: Teradose 4D [facility]: [employer] CONTRAST TYPE AND DOSE: contrast/concentration: Isovue 350.00 mg/ml; Total Contrast Delivered: 94.0 ml; Total Saline Delivered: 71.0 ml RENAL FUNCTION: Creatinine 0.9 RADIATION DOSE: CT Rad equipment meets quality standard of care and radiation dose reduction techniq ues were employed. CTDIvol: 11.4 - 13.6 mGy. DLP: 1822 mGy-cm.. LIMITATIONS: None. FINDINGS: LOWER CHEST: No significant findings. No nodules or infiltrates. LIVER: Normal size. No masses. No dilated ducts. SPLEEN: Normal size. No focal lesions. PANCREAS: No masses. No significant calcifications. No adjacent inflammation or peripancreatic fluid collections. Pancreatic duct not dilated. GALLBLADDER: Surgically absent. ADRENAL GLANDS: There is a 25 x 34 mm low-density right adrenal nodule. RIGHT KIDNEY AND URETER: No solid masses. No significant calcifications. No hydronephrosis or hyd roureter. LEFT KIDNEY AND URETER: No solid masses. No significant calcifications. No hydronephrosis or hydr oureter. 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 RETROPERITONEUM: No retroperitoneal adenopathy, hemorrhage or masses. BOWEL AND PERITONEAL CAVITY: No masses or inflammatory changes. No free fluid or peritoneal masses. APPENDIX: Surgically absent. PELVIS: No mass. No free fluid. Normal bladder. ABDOMINAL WALL: There is a 15 mm wide ventral hernia containing only fat. BONES: No significant or acute findings. OTHER: No other significant finding. IMPRESSION: 1. 15 mm wide ventral hernia contains only fat. 2. Ectasia of the infrarenal abdominal aorta. 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 3. Low-density right adrenal nodule. TECHNICAL DOCUMENTATION: JOB ID: [id number] Quality ID # [id number]: Final reports with documentation of one or more dose reduction techniques (e.g., Au tomated exposure control, adjustment of the mA and/or kV according to patient size, use of iterative reconstruction technique) 2010 [employer]- All Rights Reserved Reading location - IP/workstation name: [email or web address]
== END ==
LOC: RAD 08:17
PROVIDERS: ATTEND Surgery
DX: K43.2 Incisional hernia without obstruction or gangrene (principal); I77.811 Abdominal aortic ectasia
CPT/HCPCS: 74177; 82565

== ENCOUNTER → 2018-07-27 | Outpatient (CLI) | payer MEDICARE ==
[2018-07-27 08:22] LABS: ABSOLUTE EOSINOPHILS # (AUTO) 0.1 10^3/uL (0.0-0.6); ABSOLUTE MONOCYTES (AUTO) 0.5 10^3/uL (0.1-1.4); ABSOLUTE NEUT (AUTO) 4.7 10^3/uL (1.7-8.2); BASOPHILS % (AUTO) 0.5 % (0-2); EOSINOPHILS % (AUTO) 1.4 % (0-6); HEMATOCRIT 38.8 % (36.0-47.0); HEMOGLOBIN 13.4 g/dL (12.0-15.5); MEAN CORPUSCULAR HGB CONC 34.6 g/dL (32.0-36.0); MEAN CORPUSCULAR VOLUME 93 fl (80-97); MONOCYTES % (AUTO) 7.1 % (3-13); PLATELET COUNT 195 10^3/uL (150-450); RED BLOOD COUNT 4.19 10^6/uL (3.72-5.28); RED CELL DISTRIBUTION WIDTH 14.1 % (11.5-14.0); TOTAL CELLS COUNTED % (AUTO) 100 %; WHITE BLOOD COUNT 7.4 10^3/uL (4.0-10.5)
[2018-07-27 09:04] LABS: CHOLESTEROL 122.19 mg/dL (0-200); TRIGLYCERIDES 64 mg/dL (<150)
[2018-07-27 09:06] LABS: ALANINE AMINOTRANSFERASE 11 U/L (9-52); ALBUMIN 3.5 g/dL (3.5-5.0); ALKALINE PHOSPHATASE 118 U/L (38-126); ANION GAP 11 (5-19); ASPARTATE AMINO TRANSFERASE 16 U/L (14-36); BILIRUBIN,DIRECT 0.3 mg/dL (0.0-0.4); BILIRUBIN,TOTAL 0.6 mg/dL (0.2-1.3); BLOOD UREA NITROGEN 13 mg/dL (7-20); CALCIUM 9.5 mg/dL (8.4-10.2); CARBON DIOXIDE 29 mmol/L (22-30); CHLORIDE 104 mmol/L (98-107); GLUCOSE 97 mg/dL (75-110); POTASSIUM 4.2 mmol/L (3.6-5.0); SODIUM 143.9 mmol/L (137-145); TOTAL PROTEIN 6.1 g/dL (6.3-8.2)
[2018-07-27 09:14] LABS: DIRECT LDL 68 mg/dL (<100)
[2018-07-27 09:15] LABS: FREE T3 6.19 pg/mL (2.77-5.27); FREE T4 (FREE THYROXINE) 1.29 ng/dL (0.78-2.19)
[2018-07-27 09:29] LABS: THYROID STIMULATING HORMONE 0.39 uIU/mL (0.47-4.68)
[2018-07-28 10:38] LABS: HEPATITIS C VIRUS AB <0.1 s/co ratio (0.0-0.9)
== END ==
LOC: OD 07:52
PROVIDERS: ATTEND Family Medicine
DX: E03.9 Hypothyroidism, unspecified (principal); E78.5 Hyperlipidemia, unspecified; Z11.59 Encounter for screening for other viral diseases; Z79.899 Other long term (current) drug therapy
CPT/HCPCS: 36415; 80053; 80061; 84439; 84443; 84481; 85025; 86803; 86804; 88305

== ENCOUNTER 2019-05-18 14:55 | Inpatient (IN) | payer MEDICARE ==
[2019-05-18 16:02] LABS: ABSOLUTE BASOPHILS # (AUTO) 0.1 10^3/uL (0.0-0.2); ABSOLUTE LYMPHOCYTES (AUTO) 0.9 10^3/uL (0.5-4.7); ABSOLUTE MONOCYTES (AUTO) 0.2 10^3/uL (0.1-1.4); BASOPHILS % (AUTO) 0.9 % (0-2); EOSINOPHILS % (AUTO) 0.1 % (0-6); HEMATOCRIT 42.2 % (36.0-47.0); HEMOGLOBIN 14.3 g/dL (12.0-15.5); LYMPHOCYTES % (AUTO) 8.6 % (13-45); MEAN CORPUSCULAR HEMOGLOBIN 31.6 pg (27.0-33.4); MEAN CORPUSCULAR HGB CONC 33.8 g/dL (32.0-36.0); MEAN CORPUSCULAR VOLUME 94 fl (80-97); MONOCYTES % (AUTO) 2.1 % (3-13); PLATELET COUNT 200 10^3/uL (150-450); RED BLOOD COUNT 4.51 10^6/uL (3.72-5.28); RED CELL DISTRIBUTION WIDTH 13.2 % (11.5-14.0); SEGMENTED NEUTROPHILS % (AUTO) 88.3 % (42-78); TOTAL CELLS COUNTED % (AUTO) 100 %; WHITE BLOOD COUNT 10.2 10^3/uL (4.0-10.5)
[2019-05-18 16:20] LABS: ALBUMIN 4.1 g/dL (3.5-5.0); ALKALINE PHOSPHATASE 90 U/L (38-126); ANION GAP 8 (5-19); ASPARTATE AMINO TRANSFERASE 22 U/L (14-36); BILIRUBIN,DIRECT 0.2 mg/dL (0.0-0.4); BILIRUBIN,TOTAL 0.4 mg/dL (0.2-1.3); BLOOD UREA NITROGEN 22 mg/dL (7-20); CALCIUM 9.7 mg/dL (8.4-10.2); CARBON DIOXIDE 32 mmol/L (22-30); CHLORIDE 99 mmol/L (98-107); GLUCOSE 126 mg/dL (75-110); POTASSIUM 4.4 mmol/L (3.6-5.0); TOTAL PROTEIN 6.7 g/dL (6.3-8.2)
[2019-05-18] MEDS ORDERED: ONDANSETRON HCL INJ/PF 4 MG/2 ML SDV IV ONE ×2 (17:18→19:47)
[2019-05-18] MEDS ORDERED: MORPHINE SULFATE 10 MG/ML INJ IV ONE ×2 (17:18→19:46)
--- NOTE | 2019-05-18 17:25 | ER Document Report ---
ED GI/ - General Chief Complaint: Abdominal Pain Stated Complaint: ABDOMINAL PAIN/VOMITING Time Seen by Provider: 05/18/19 17:06 Primary Care Provider: PHIL DEL VALLE DO [Primary Care Provider] - Follow up as needed Notes: Patient is complaining of abdominal pain nausea and vomiting and diarrhea. She says that about 1030 this morning, she suddenly began to experience pain in the epigastric region which soon after that moved down into the lower abdomen bilaterally and then radiated into the back, flank region bilaterally. She says she is vomited 5 times and had about 3 episodes of diarrhea. No blood in either of the vomitus or diarrhea. She once had some pain similar to what she is currently having when she had a kidney and bladder and urinary tract infection many years ago. She has had surgery for colon cancer and vulvar cancer in 2008 and breast cancer in the . All of these were completely removed without a recurrence. Has had her gallbladder removed. TRAVEL OUTSIDE OF THE [place] IN LAST 30 DAYS: No - Related Data Allergies/Adverse Reactions: doxycycline [Doxycycline] Allergy (Severe, Verified 03/27/17 13:49) VOMITING Opioids - Morphine Analogues Allergy (Severe, Verified 03/27/17 13:49) Anaphylaxis Penicillins Allergy (Verified 03/27/17 13:49) Anaphylaxis Past Medical History - Social History Smoking Status: Current Every Day Smoker Family History: Reviewed & Not Pertinent, CAD Patient has suicidal ideation: No Patient has homicidal ideation: No - Past Medical History Cardiac Medical History: Reports: Hx Coronary Artery Disease, Hx Hypertension Denies: Hx Heart Attack Pulmonary Medical History: Reports: Hx Asthma - on home nebs & O2 3-3.5 , Hx Bronchitis, Hx COPD - On home oxygen at 3 L all the time., Hx Respiratory Failure - Chronic hypoxemic on home oxygen, Hx Sleep Apnea - On CPAP Denies: Hx Pneumonia Endocrine Medical History: Reports: Hx Hypothyroidism Malignancy Medical History: Reports: Hx Breast Cancer, Hx Colorectal Cancer GI Medical History: Reports: Other - Umbilical hernia Musculoskeletal Medical History: Reports Hx Arthritis - generalized Psychiatric Medical History: Reports: Hx Depression Infectious Medical History: Denies: Hx Hepatitis Past Surgical History: Reports: Hx Cholecystectomy, Hx Mastectomy - DOUBLE, NO NEED TO AVOID ARM, Other - History of surgery for vulvar and colon cancer, currently cancer free. Denies: Hx Hysterectomy, Hx Open Heart Surgery, Hx Pacemaker - Immunizations Hx Diphtheria, Pertussis, Tetanus Vaccination: No Hx Pneumococcal Vaccination: 07/08/16 Review of Systems - Review of Systems Notes: REVIEW OF SYSTEMS: CONSTITUTIONAL : Denies fever. EENT: Denies eye, ear, nose or mouth or throat pain or other symptoms. CARDIOVASCULAR: Denies chest pain. RESPIRATORY: Denies cough, chest congestion, but always has shortness of lorraine th. GASTROINTESTINAL: See HPI. Periumbilical hernia. GENITOURINARY: Denies difficulty or painful urinating, urinary frequency, blood in urine. MUSCULOSKELETAL: Denies back or neck pain. Denies joint pain or swelling. SKIN: Denies rash or skin lesions. NEUROLOGICAL: Denies LOC or altered mental status. Denies headache. Denies sensory loss or motor deficits. ALL OTHER SYSTEMS REVIEWED AND NEGATIVE. Physical Exam - Vital signs Vitals: Temp 97.9 F 05/18/19 15:14 Interpretation: Normal - On nasal oxygen.. No: Febrile Notes: PHYSICAL EXAMINATION: GENERAL: Well-appearing, in no acute distress. HEAD: Atraumatic, normocephalic. EYES: Pupils equal round and reactive to light, extraocular movements intact. ENT: oropharynx clear without exudates. Moist mucous membranes. NECK: Normal range of motion, supple. LUNGS: Breath sounds clear and equal bilaterally. HEART: Regular rate and rhythm without murmurs. ABDOMEN: Soft, mild tenderness of the lower abdomen, in particular the left lower quadrant. No actual guarding. Patient does have a firm tender swelling of a periumbilical hernia somewhat superior and to the right of the [place] us. Nontender. No guarding or rebound. No masses. No bruits heard. BACK: No tenderness throughout entire back. EXTREMITIES: Normal range of motion without pain. NEUROLOGICAL: Normal speech, normal gait. Normal sensory, motor, and reflex exams. Awake, alert, and oriented x3. Cranial nerves normal. PSYCH: Normal mood, normal affect. SKIN: Warm, dry, no rashes. Course - Re-evaluation Re-evalutation: 05/18/19 19:19 Patient is worked up and found to have a small bowel obstruction. I discussed the case with Dr. Tovar who came to the emergency department and saw the patient and will admit her for NG drainage. - Vital Signs Vital signs: Temp Pulse Resp BP Pulse Ox 97.9 F 05/18/19 15:14 - Laboratory Result Diagrams: 05/18/19 15:35 05/18/19 15:35 Laboratory results interpreted by me: 05/18/19 05/18/19 05/18/19 15:35 15:35 18:10 Lymph % (Auto) 8.6 L [place] % (Auto) 2.1 L Absolute Neuts (auto) 9.0 H Seg Neutrophils % 88.3 H Carbon Dioxide 32 H BUN 22 H Glucose 126 H Urine Ketones TRACE H Urine Ascorbic Acid 40 H Discharge - Discharge Clinical Impression: Abdominal pain, Vomiting and diarrhea, Small bowel obstruction, COPD (chronic obstructive pulmonary disease) Condition: Stable Disposition: ADMITTED INPATIENT Admitting Provider: Surgicalist Unit Admitted: Surgical Floor Referrals: PHIL DEL VALLE DO [Primary Care Provider] - Follow up as needed
[2019-05-18 18:34] LABS: APPEARANCE,URINE SLIGHTLY-CLOUDY; BILIRUBIN,URINE NEGATIVE (NEGATIVE); CALCIUM OXALATE CRYSTALS,URINE MODERATE /HPF; COLOR,URINE YELLOW; GLUCOSE, URINE NEGATIVE (NEGATIVE); KETONES,URINE TRACE mg/dL (NEGATIVE); LEUKOCYTE ESTERASE,URINE NEGATIVE (NEGATIVE); NITRITE,URINE NEGATIVE (NEGATIVE); PROTEIN,URINE NEGATIVE (NEGATIVE); URINE SPECIFIC GRAVITY 1.017; UROBILINOGEN,URINE NEGATIVE mg/dL (<2.0)
--- NOTE | 2019-05-18 19:15 | RADIOLOGY REPORT (SQ) ---
EXAM DESCRIPTION: CT ABD/PELVIS WITH IV ONLY COMPLETED DATE/TIME: 05/18/2019 6:26 pm REASON FOR STUDY: Lower abdominal pain, umbilical hernia. COMPARISON: 07/05/2018 TECHNIQUE: CT scan of the abdomen and pelvis performed using helical scanning technique with dynamic intravenous contrast injection. No oral contrast. Images reviewed with lung, soft tissue, and bone w indows. Reconstructed coronal and sagittal MPR images reviewed. Delayed images for evaluation of the urinary system also acquired. All images stored on PACS. All CT scanners at this facility use dose modulation, iterative reconstruction, and/or weight based d osing when appropriate to reduce radiation dose to as low as reasonably achievable (ALARA). [facility]: Dose Right [facility]: CareDose [facility]: Dose Right [facility]: Teradose 4D [facility]: Symptify CONTRAST TYPE AND DOSE: contrast/concentration: Isovue 350.00 mg/ml; Total Contrast Delivered: 100.0 ml; Total Saline Delivered: 72.0 ml RENAL FUNCTION: GFR > 60. RADIATION DOSE: CT Rad equipment meets quality standard of care and radiation dose reduction techniq ues were employed. CTDIvol: 17.4 - 19.0 mGy. DLP: 1886 mGy-cm.. LIMITATIONS: None. FINDINGS: LOWER CHEST: Mild basilar subsegmental atelectasis -scarring. LIVER: Normal size. No enhancing masses. No dilated ducts. SPLEEN: Normal size. No focal lesions. PANCREAS: No masses identified. No significant calcifications. No adjacent inflammation or peripancre atic fluid collections. Pancreatic duct not dilated. GALLBLADDER: Surgically absent. ADRENAL GLANDS: Similar right adrenal 2.5 cm nodule. RIGHT KIDNEY AND URETER: Similar cysts identified. No solid masses identified. No calcified stones. N o hydronephrosis or hydroureter. LEFT KIDNEY AND URETER: Similar cysts identified. No solid masses identified. No calcified stones. No hydronephrosis or hydroureter. AORTA AND VESSELS: Stable dilatation of the iliac arteries, right greater than left. . No dissection . Renal arteries, SMA, celiac without significant stenosis. RETROPERITONEUM: No bulky retroperitoneal adenopathy. BOWEL AND PERITONEAL CAVITY: Small bowel obstruction with loops in the mid abdomen measuring 4.7 cm, transition point appears to be in the right mid abdomen. Moderate inflammatory changes - free fluid. Diverticulosis. Postsurgical changes are present in the transverse colon, tortuous, and noted in t he lower midline. APPENDIX: Not visualized. PELVIS: Mild free fluid. Unremarkable bladder. ABDOMINAL WALL: Similar fat containing paraumbilical hernia, no bowel involvement. BONES: No acute findings. OTHER: No other significant finding. IMPRESSION: Small bowel obstruction with loops in the mid abdomen measuring 4.7 cm, transition point appears to be in the right mid abdomen. Moderate inflammatory changes - free fluid. COMMENT: Results discussed with the on-call surgeon. TECHNICAL DOCUMENTATION: JOB ID: [id number] Quality ID # [id number]: Final reports with documentation of one or more dose reduction techniques (e.g., Au tomated exposure control, adjustment of the mA and/or kV according to patient size, use of iterative reconstruction technique) 2010 [employer] All Rights Reserved Reading location - IP/workstation name: [email or web address]
[2019-05-18] MEDS ORDERED: POTASSI CL 20 MEQ/1/2NS 1L 20 MEQ/1,000 ML RTUINJ IV PRN (19:30)
[2019-05-18] MEDS ORDERED: PHARMACY COMMUNICATION ORDER MC NR (19:30)
--- NOTE | 2019-05-18 19:30 | PDOC H&P ---
History of Present Illness Admission Date/PCP: 05/18/19 History of Present Illness: JOHAN WREN is a 73 year old female Patient is complaining of abdominal pain nausea and vomiting and diarrhea. She says that about 1030 this morning, she suddenly began to experience pain in the epigastric region which soon after that moved down into the lower abdomen bilaterally and then radiated into the back, flank region bilaterally. She says she is vomited 5 times and had about 3 episodes of diarrhea. No blood in either of the vomitus or diarrhea. She once had some pain similar to what she is currently having when she had a kidney and bladder and urinary tract infection many years ago. She has had surgery for colon cancer and vulvar cancer in 2008 and breast cancer in the s. All of these were completely removed without a recurrence. Has had her gallbladder removed. Past Medical History Cardiac Medical History: Reports: Coronary Artery Disease, Hypertension Denies: Myocardial Infarction Pulmonary Medical History: Reports: Asthma - on home nebs & O2 3-3.5 , Bronchitis, Chronic Obstructive Pulmonary Disease (COPD) - On home oxygen at 3 L all the time., Respiratory Failure - Chronic hypoxemic on home oxygen, Sleep Apnea - On CPAP Denies: Pneumonia Neurological Medical History: Denies: Seizures Endocrine Medical History: Reports: Hypothyroidism Malignancy Medical History: Reports: Breast Cancer, Colorectal Cancer GI Medical History: Reports: Other - Umbilical hernia Denies: Hepatitis, Hiatal Hernia Musculoskeltal Medical History: Reports: Arthritis - generalized Psychiatric Medical History: Reports: Depression Hematology: Denies: Anemia, Sickle Cell Disease Past Surgical History Past Surgical History: Reports: Cholecystectomy, Mastectomy - DOUBLE, NO NEED TO AVOID ARM, Other - History of surgery for vulvar and colon cancer, currently cancer free Denies: Amputation, Hysterectomy, Pacemaker Social History Smoking Status: Current Every Day Smoker Frequency of Alcohol Use: None Hx Recreational Drug Use: No Drugs: None Hx Prescription Drug Abuse: No Family History Family History: Reviewed & Not Pertinent, CAD Parental Family History Reviewed: Yes Children Family History Reviewed: NA Sibling(s) Family History Reviewed.: NA Medication/Allergy Home Medications: Albuterol Sulfate [Albuterol Sulfate 2.5mg/3 mL] 1 vial NEB RTQIDP PRN 12/25/16 Albuterol Sulfate [Proair HFA Inhalation Aerosol 8.5 gm MDI] 2 puff IH Q4HP PRN 12/25/16 Arformoterol Tartrate [Brovana Inhalation Solution 15 mcg/2 mL] 1 vial NEB RTBID 12/25/16 Aspirin [Aspirin EC] 81 mg PO DAILY 12/25/16 Docusate Sodium [Colace 100 mg Capsule] 100 mg PO BID 12/25/16 Naproxen 500 mg PO BIDP PRN 12/25/16 Pravastatin Sodium [Pravachol] 40 mg PO QHS 12/25/16 Glucosamine HCl/Chondro Mccloud A [Glucosamine Chondroitin Cap] 1 cap PO BID 03/27/17 Guaifenesin [Mucinex] 600 mg PO BIDP PRN 03/27/17 Losartan Potassium 25 mg PO DAILY 03/27/17 Potassium Chloride 10 meq PO TUTHSA@0800 MDD TAKES WITH LASIX 03/27/17 Tiotropium [place] [Spiriva Handihaler 5 Cap/Kit (18 Mcg/Cap)] 1 cap IH DAILY 03/27/17 Budesonide [Pulmicort Neb 0.5 mg/2 ml Ampul] 0.5 mg NEB RTQ12 12/24/17 Cyanocobalamin (Vitamin B-12) [Vitamin B-12 1000 mcg Tablet] 1,000 mcg PO DAILY 12/24/17 Estradiol [Estrace] 1 gm VG QHS 12/24/17 Furosemide [Lasix 40 mg Tablet] 40 mg PO QAM 12/24/17 Multivitamin [Tab-A-Jonny (Multiple Vitamin) Tablet] 1 tab PO DAILY 12/24/17 Selenium [Selenimin] 600 mcg PO Q12 12/24/17 Tamsulosin HCl [Flomax 0.4 mg Cap.sr] 0.4 mg PO DAILY 12/24/17 Thyroid (Pork) [[place] Thyroid 60 mg Tablet] 150 mg PO Q6AM 12/24/17 Ubidecarenone [Co Q-10] 100 mg PO DAILY 12/24/17 Vitamin E 1,000 unit PO DAILY 12/24/17 Zinc Sulfate [Zinc-220 Capsule] 220 mg PO QHS 12/24/17 Bupropion HCl [Wellbutrin 100 mg Tablet] 150 mg PO DAILY tablet 12/27/17 Prednisone 20 mg PO DAILY #14 tablet 12/27/17 Allergies/Adverse Reactions: doxycycline [Doxycycline] Allergy (Severe, Verified 03/27/17 13:49) VOMITING Opioids - Morphine Analogues Allergy (Severe, Verified 03/27/17 13:49) Anaphylaxis Penicillins Allergy (Verified 03/27/17 13:49) Anaphylaxis Review of Systems Constitutional: PRESENT: fatigue, weakness Eyes: ABSENT: as per HPI, visual disturbances, other Ears: ABSENT: as per HPI, hearing changes, other Nose, Mouth, and Throat: ABSENT: as per HPI, headache(s), mouth pain, sore throat, vertigo, other Breasts: ABSENT: as per HPI, other Cardiovascular: ABSENT: as per HPI, chest pain, dyspnea on exertion, edema, orthropnea, palpitations, other Respiratory: PRESENT: other - on home 02, smoker Gastrointestinal: PRESENT: abdominal pain, bloating, nausea, vomiting Genitourinary: ABSENT: dysuria, hematuria Musculoskeletal: ABSENT: as per HPI, back pain, deformity, joint swelling, muscle weakness, other Integumentary: ABSENT: as per HPI, diaphoresis, erythema, lesions, pruritus, rash, wounds, other Neurological: ABSENT: as per HPI, abnormal gait, abnormal movements, abnormal speech, confusion, convulsions, dizziness, focal weakness, frequent falls, lack of coordination, memory loss, numbness, paresthesias, restless legs, syncope, tingling, tremor(s), vertigo, weakness, other Psychiatric: ABSENT: as per HPI, anxiety, depression, hallucinations, homidical ideation, suicidal ideation, other Hematologic/Lymphatic: ABSENT: as per HPI, easy bleeding, easy bruising, lymphadenopathy, other Allergic/Immunologic: ABSENT: as per HPI, seasonal rhinorrhea, other Physical Exam Vital Signs: Temp Pulse Resp BP Pulse Ox 97.9 F 05/18/19 15:14 Intake & Output 05/17/19 05/18/19 05/19/19 06:59 06:59 06:59 Weight 89.811 kg General appearance: PRESENT: mild distress Head exam: PRESENT: normocephalic Eye exam: PRESENT: EOMI Ear exam: PRESENT: TM's normal bilaterally Mouth exam: PRESENT: dry mucosa Neck exam: PRESENT: full ROM Respiratory exam: PRESENT: rhonchi Cardiovascular exam: PRESENT: RRR Pulses: PRESENT: normal radial pulses, normal femoral pulses GI/Abdominal exam: PRESENT: other - supraumbilical hernia, not reduicble tender mildly in all 4 quadrents. Rectal exam: PRESENT: deferred Extremities exam: PRESENT: full ROM Musculoskeletal exam: PRESENT: full ROM Neurological exam: PRESENT: alert, awake, oriented to person, oriented to place Psychiatric exam: PRESENT: appropriate affect Skin exam: PRESENT: dry Results Laboratory Results: 05/18/19 15:35 05/18/19 15:35 05/18/19 05/18/19 05/18/19 15:35 15:35 18:10 WBC 10.2 RBC 4.51 Hgb 14.3 Hct 42.2 MCV 94 MCH 31.6 MCHC 33.8 RDW 13.2 Plt Count 200 Seg Neutrophils % 88.3 H Sodium 139.4 Potassium 4.4 Chloride 99 Carbon Dioxide 32 H Anion Gap 8 BUN 22 H Creatinine 0.67 Est GFR ( Amer) > 60 Glucose 126 H Calcium 9.7 Total Bilirubin 0.4 AST 22 Alkaline Phosphatase 90 Total Protein 6.7 Albumin 4.1 Lipase 47.5 Urine Color YELLOW Urine Appearance SLIGHTLY-CLOUDY Urine pH 5.0 Ur Specific [place] 1.017 Urine Protein NEGATIVE Urine Glucose (UA) NEGATIVE Urine Ketones TRACE H Urine Blood NEGATIVE Urine Nitrite NEGATIVE Ur Leukocyte Esterase NEGATIVE Urine WBC (Auto) 3 Urine RBC (Auto) 8 Impressions: Abdomen/Pelvis CT 05/18/19 17:52 IMPRESSION: Small bowel obstruction with loops in the mid abdomen measuring 4.7 cm, transition point appears to be in the right mid abdomen. Moderate inflammatory changes - free fluid. Assessment & Plan - Diagnosis (2) Abdominal pain Qualifiers: Abdominal location: generalized Qualified Code(s): R10.84 - Generalized abdominal pain Is this a current diagnosis for this admission?: Yes - Inpatient Certification Medical Necessity: Need Close Monitoring Due to Risk of Patient Decompensation, Need For IV Fluids - Plan Summary Plan Summary: reviewed ct with radiologist pt has suprumbilical hernia with incarcerated fat, not small bowel she does have a mid small bowel obstruction will place ng tube iv fluids/ bowel rest I have asked hospitalist to eval since she is a copd pt on home o2 .
[2019-05-18] MEDS ORDERED: IPRATROPIUM/ALBUTEROL 0.5-2.5 MG/3 ML AMPUL NEB PRN (19:47)
[2019-05-18] MEDS ORDERED: ENALAPRILAT DIHYDRATE INJ/PF 1.25 MG/1 ML SDV IV PRN (19:47)
[2019-05-18] MEDS ORDERED: METOCLOPRAMIDE HCL INJ/PF 10 MG/2 ML SDV IV ONE (19:48)
[2019-05-18] MEDS ORDERED: LIDOCAINE 2% JELLY 5 ML TUBE NASL ONE (19:48)
[2019-05-18] MEDS: IPRATROPIUM/ALBUTEROL 0.5-2.5 MG/3 ML AMPUL NEB SCH (20:22)
[2019-05-18] MEDS: ONDANSETRON HCL INJ/PF 4 MG/2 ML SDV IV PRN (23:18)
[2019-05-18] MEDS: FAMOTIDINE INJ/PF 20 MG/2 ML SDV IV SCH (23:18)
[2019-05-18] MEDS: HEPARIN SOD (PORCINE) 5,000 UNIT/ML 1 ML VIAL SUBCUT SCH (23:19)
--- NOTE | 2019-05-19 04:57 | PDOC CONSULTATION ---
Consultation Consult Date: 05/18/19 Attending physician:: JERMAINE SYKES Provider Consulted: HERNANDEZ MCKENNA Consult reason:: COPD History of Present Illness Admission Date/PCP: 05/18/19 19:27 PHIL DEL VALLE DO Patient complains of: Abdominal pain History of Present Illness: JOHAN WREN is a 73 year old female with a past medical history of oxygen de pendent COPD, obstructive sleep apnea, hypertension and ongoing tobacco dependence. She presents after 4 hours of abdominal pain distention nausea and vomiting of gastric content. This was preceded by oatmeal breakfast, an episode of diarrhea followed by abdominal pain. She denies chest pain shortness of breath or palpitations. She denies previous episode. She admits multiple previous abdominal surgeries. In the emergency room she is found to have a mild metabolic alkalosis and small bowel obstruction by imaging. She is admitted by general surgery. She denies recent change in medication regiment which includes CBD oil twice a day. Past Medical History Cardiac Medical History: Reports: Coronary Artery Disease, Hypertension Denies: Myocardial Infarction Pulmonary Medical History: Reports: Asthma - on home nebs & O2 3-3.5 , Bronchitis, Chronic Obstructive Pulmonary Disease (COPD) - On home oxygen at 3 L all the time., Respiratory Failure - Chronic hypoxemic on home oxygen, Sleep Apnea - On CPAP Denies: Pneumonia Neurological Medical History: Denies: Seizures Endocrine Medical History: Reports: Hypothyroidism, Obesity Malignancy Medical History: Reports: Breast Cancer, Colorectal Cancer GI Medical History: Reports: Other - Umbilical hernia Denies: Hepatitis, Hiatal Hernia Musculoskeltal Medical History: Reports: Arthritis - generalized Psychiatric Medical History: Reports: Depression Hematology: Denies: Anemia, Sickle Cell Disease Past Surgical History Past Surgical History: Reports: Cholecystectomy, Mastectomy - DOUBLE, NO NEED TO AVOID ARM, Other - History of surgery for vulvar and colon cancer, currently cancer free Denies: Amputation, Hysterectomy, Pacemaker Social History Information Source: Patient, [facility] Records Smoking Status: Current Every Day Smoker Cigarettes Packs Per Day: 0.8 Frequency of Alcohol Use: Rare Hx Recreational Drug Use: Yes Drugs: Marijuana Hx Prescription Drug Abuse: No - Advance Directive Resuscitation Status: Full Code Family History Family History: Reviewed & Not Pertinent, CAD Parental Family History Reviewed: Yes Children Family History Reviewed: Yes Sibling(s) Family History Reviewed.: Yes Medication/Allergy Home Medications: Albuterol Sulfate [Proair Hfa Inhalation Aerosol 8.5 gm i] 1 puff IH ASDIR PRN 05/18/19 Arformoterol Tartrate [Brovana Inhalation Solution 15 mcg/2 mL] 1 vial IH RTBID 05/18/19 Ascorbic Acid [Vitamin C] 1,000 mg PO QAM 05/18/19 Aspirin [Ecotrin 81 mg EC Tablet] 81 mg PO QPM 05/18/19 Budesonide [Pulmicort Neb 0.5 mg/2 ml Ampul] 0.5 mg NEB RTBID 05/18/19 Cholecalciferol (Vitamin D3) [Vitamin D3] 2,000 unit PO QPM 05/18/19 Citalopram Hydrobromide [Celexa 20 mg Tablet] 25 mg PO DAILY 05/18/19 Cyanocobalamin (Vitamin B-12) [Vitamin B-12] 1,000 mcg PO DAILY 05/18/19 Docusate Sodium [Stool Softener] 100 mg PO BID 05/18/19 Furosemide [Lasix 40 mg Tablet] 40 mg PO DAILY 05/18/19 [id number] 149-Hyal [Glucosamine Chondroitin Tablet] 1 each PO BID 05/18/19 Guaifenesin [Mucinex] 600 mg PO BID 05/18/19 Losartan Potassium [Cozaar 25 mg Tablet] 25 mg PO QAM 05/18/19 Multivitamin [One-A-Day Essential] 1 each PO QAM 05/18/19 Naproxen Sodium 600 mg PO BID 05/18/19 Nortriptyline HCl [Pamelor 25 Mg Capsule] 25 mg PO QPM 05/18/19 [place]-3 Fatty Acids/Fish Oil [[place] 3 Fish Oil Softgel] 1 each PO QPM 05/18/19 Pravastatin Sodium [Pravachol] 40 mg PO QPM 05/18/19 Roflumilast [Daliresp] 250 mcg PO BID 05/18/19 Selenium [Selenimin] 600 mcg PO BID 05/18/19 Tamsulosin HCl [Flomax 0.4 mg Cap.sr] 0.4 mg PO QAM 05/18/19 Thyroid (Pork) [[place] Thyroid 60 Mg Tablet] 150 mg PO Q2D 05/18/19 Thyroid,Pork [[place] Thyroid] 120 mg PO Q2D 05/18/19 Tiotropium [place] [Spiriva Handihaler 5 Cap/Kit (18 Mcg/Cap)] 1 cap IH DAILY 05/18/19 Ubidecarenone [Co Q-10] 100 mg PO QAM 05/18/19 Vitamin E 1,000 unit PO QPM 05/18/19 Allergies/Adverse Reactions: doxycycline [Doxycycline] Allergy (Severe, Verified 03/27/17 13:49) VOMITING Opioids - Morphine Analogues Allergy (Severe, Verified 03/27/17 13:49) Anaphylaxis Penicillins Allergy (Verified 03/27/17 13:49) Anaphylaxis Review of Systems Constitutional: ABSENT: chills, fever(s), headache(s), weight gain, weight loss Eyes: ABSENT: visual disturbances Ears: ABSENT: hearing changes Cardiovascular: ABSENT: chest pain, dyspnea on exertion, edema, orthropnea, palpitations Respiratory: ABSENT: cough, hemoptysis Gastrointestinal: ABSENT: abdominal pain, constipation, diarrhea, hematemesis, hematochezia, nausea, vomiting Genitourinary: ABSENT: dysuria, hematuria Musculoskeletal: ABSENT: joint swelling Integumentary: ABSENT: rash, wounds Neurological: ABSENT: abnormal gait, abnormal speech, confusion, dizziness, focal weakness, syncope Psychiatric: ABSENT: anxiety, depression, homidical ideation, suicidal ideation Endocrine: ABSENT: cold intolerance, heat intolerance, polydipsia, polyuria Hematologic/Lymphatic: ABSENT: easy bleeding, easy bruising Physical Exam Vital Signs: Temp Pulse Resp BP Pulse Ox 97.8 F 110 H 15 129/79 H 96 05/18/19 21:56 05/18/19 21:56 05/19/19 04:26 05/18/19 21:56 05/18/19 21:56 Intake & Output 05/17/19 05/18/19 05/19/19 11:59 11:59 11:59 Weight 89.6 kg General appearance: PRESENT: cooperative, mild distress, obese, well-developed, well-nourished Head exam: PRESENT: atraumatic, normocephalic Eye exam: PRESENT: conjunctiva pink, EOMI, PERRLA. ABSENT: scleral icterus Ear exam: PRESENT: normal external ear exam Mouth exam: PRESENT: dry mucosa, tongue midline. ABSENT: laceration, moist Neck exam: ABSENT: carotid bruit, JVD, lymphadenopathy, thyromegaly Respiratory exam: PRESENT: clear to auscultation maria a, crackles, tachypnea. ABSENT: rales, rhonchi, wheezes Cardiovascular exam: PRESENT: RRR. ABSENT: diastolic murmur, rubs, systolic mu rmur Pulses: PRESENT: normal dorsalis pedis pul Vascular exam: PRESENT: normal capillary refill GI/Abdominal exam: PRESENT: diminished bowel sounds, distended, soft. ABSENT: ascites, firm, guarding, tenderness Rectal exam: PRESENT: deferred Extremities exam: PRESENT: full ROM, +1 edema. ABSENT: calf tenderness Neurological exam: PRESENT: alert, awake, oriented to person, oriented to place, oriented to time, oriented to situation, CN II-XII grossly intact. ABSENT: motor sensory deficit Psychiatric exam: PRESENT: appropriate affect, normal mood. ABSENT: homicidal ideation, suicidal ideation Skin exam: PRESENT: dry, intact, warm. ABSENT: cyanosis, rash Results Laboratory Results: 05/18/19 15:35 05/18/19 15:35 05/18/19 05/18/19 05/18/19 15:35 15:35 18:10 WBC 10.2 RBC 4.51 Hgb 14.3 Hct 42.2 MCV 94 MCH 31.6 MCHC 33.8 RDW 13.2 Plt Count 200 Seg Neutrophils % 88.3 H Sodium 139.4 Potassium 4.4 Chloride 99 Carbon Dioxide 32 H Anion Gap 8 BUN 22 H Creatinine 0.67 Est GFR ( Amer) > 60 Glucose 126 H Calcium 9.7 Total Bilirubin 0.4 AST 22 Alkaline Phosphatase 90 Total Protein 6.7 Albumin 4.1 Lipase 47.5 Urine Color YELLOW Urine Appearance SLIGHTLY-CLOUDY Urine pH 5.0 Ur Specific [place] 1.017 Urine Protein NEGATIVE Urine Glucose (UA) NEGATIVE Urine Ketones TRACE H Urine Blood NEGATIVE Urine Nitrite NEGATIVE Ur Leukocyte Esterase NEGATIVE Urine WBC (Auto) 3 Urine RBC (Auto) 8 Impressions: Abdomen/Pelvis CT 05/18/19 17:52 IMPRESSION: Small bowel obstruction with loops in the mid abdomen measuring 4.7 cm, transition point appears to be in the right mid abdomen. Moderate inflammatory changes - free fluid. Assessment and Plan - Diagnosis (1) Small bowel obstruction Is this a current diagnosis for this admission?: Yes Plan: Defer to surgery, NG tube ending, follow-up electrolytes. (2) Alkalosis Is this a current diagnosis for this admission?: Yes Plan: Secondary to #1 with mild volume contraction, gentle hydration and follow-up chemistry (3) COPD (chronic obstructive pulmonary disease) Qualifiers: Is this a current diagnosis for this admission?: Yes Plan: Scheduled and as needed albuterol, Atrovent, incentive spirometry, flutter valve PRN, supplemental oxygen and CPAP (4) Essential hypertension Is this a current diagnosis for this admission?: Yes Plan: IV Vasotec as needed ordered - Time Time Spent with patient: 25-34 minutes - Inpatient Certification Medical Necessity: Need Close Monitoring Due to Risk of Patient Decompensation
[2019-05-19] MEDS ORDERED: NORMAL SALINE 1000 ML 1,000 ML IV ONE (04:58)
[2019-05-19 06:19] LABS: HEMATOCRIT 43.5 % (36.0-47.0); HEMOGLOBIN 14.6 g/dL (12.0-15.5); MEAN CORPUSCULAR HEMOGLOBIN 31.4 pg (27.0-33.4); MEAN CORPUSCULAR HGB CONC 33.5 g/dL (32.0-36.0); MEAN CORPUSCULAR VOLUME 94 fl (80-97); PLATELET COUNT 190 10^3/uL (150-450); RED BLOOD COUNT 4.63 10^6/uL (3.72-5.28); RED CELL DISTRIBUTION WIDTH 13.3 % (11.5-14.0); WHITE BLOOD COUNT 16.8 10^3/uL (4.0-10.5)
[2019-05-19] MEDS: HEPARIN SOD (PORCINE) 5,000 UNIT/ML 1 ML VIAL SUBCUT SCH ×3 (06:42→21:39)
[2019-05-19] MEDS: NICOTINE 14 MG/24 HR PATCH.TD24 TD SCH ×2 (06:42→14:18)
--- NOTE | 2019-05-19 06:52 | RADIOLOGY REPORT (SQ) ---
CLINICAL HISTORY: Check Placement of NG Tube COMPARISON: None. TECHNIQUE: XR ABDOMEN 1 VIEW (KUB) 05/18/2019 7:21 PM CDT FINDINGS: Bowel gas pattern is nonspecific. There are no abnormal radiopaque foreign bodies or abnormal calcifications. Osseous structures are grossly unremarkable. NG tube tip is in the stomach. There is minimal bibasilar atelectasis. IMPRESSION: NG tube tip in the stomach.
[2019-05-19] MEDS ORDERED: CEFAZOLIN 1 GM/D5W RTU 1 GM/50 ML RTUPB IV ONE (07:51)
[2019-05-19] MEDS: IPRATROPIUM/ALBUTEROL 0.5-2.5 MG/3 ML AMPUL NEB SCH ×2 (07:55→19:36)
[2019-05-19] MEDS ORDERED: FENTANYL CITRATE INJ/PF 250 MCG/5 ML AMPULE ONE (08:21)
[2019-05-19] MEDS ORDERED: MIDAZOLAM 2 MG/2 ML INJ ONE (08:21)
[2019-05-19] MEDS ORDERED: PROPOFOL INJ 200 MG/20 ML VIAL IV ONE (08:22)
[2019-05-19] MEDS ORDERED: BUPIVACAINE HCL 0.25 % INJ/PF (2.5 MG/1 ML) 30 ML VIAL ONE (08:35)
[2019-05-19] MEDS ORDERED: CLINDAMYCIN 600 MG/D5W RTU 600 MG/50 ML RTUPB IV ONE (08:48)
[2019-05-19] MEDS ORDERED: FENTANYL CITRATE INJ/PF 100 MCG/2 ML AMPUL IV PRN ×3 (10:16)
[2019-05-19] MEDS ORDERED: MEPERIDINE HCL/PF INJ 25 MG/1 ML DISP.SYRIN IV PRN (10:16)
[2019-05-19] MEDS ORDERED: PROMETHAZINE HCL INJ 25 MG/1 ML VIAL IV PRN (10:16)
[2019-05-19] MEDS ORDERED: DIPHENHYDRAMINE HCL 50 MG/ML VIAL IV PRN (10:16)
[2019-05-19] MEDS ORDERED: PROPOFOL 1,000 MG/100 ML INFUS..BTL IV ONE (10:59)
--- NOTE | 2019-05-19 11:24 | Operative Report ---
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 Appropriate timeout was then called. A midline incision was then made from the mid epigastric area down to just below the umbilicus. Fascia was then entered with the use of cautery. Small amount of blood noted and gangrenous small bowel noted. There were some adhesions that were lysed close to the gangrenous bowell. There was a thick band was noted. The band was released and normal side of the small bowel on each side was then stapled with GUILLERMO. The gangrenous bowel was about 1.5 feet and passed on to the table to be sent to pathology. The mesentery was then divided with the use of LigaSure. The small bowel was then run from the from the ligament from the resected site all the way up to the ligament of Treitz appeared small bowel was slightly dilated but the area of the ligament of Treitz appears to be partially collapsed. There no other abnormalities noted. There were a few adhesions from the omentum blocking a better view of the rest of the bowel that were then lyzed with use of cautery. The stomach was dilated and a new NG tube was passed by anesthesia which decompressed the stomach nicely. Next the 2 ends of the small bowel were anastomosed with functional [id number] anastomosis using GUILLERMO 75. The defect resulting defect was then closed with a TA 60. The mesenteric defect was then re-approximated using running suture of 2-0 Vicryl. The end of the anastomosis which was actually to transverse colon and the small bowel was then approximated with 2-0 silk to prevent separation of the frandy. The abdominal cavity was then irrigated with the saline solution and after this was done our gloves were changed. The fascia was then closed with running suture using 0 PDS single arm. Subcu was then irrigated with saline solution and the skin reapproximated with frandy. After the procedure anesthesia felt patient is not ready to be extubated since her pulse oximetry is in the 70s. Arrangements were made for the patient to be transferred to the intensive care unit. Patient was then transferred to the unit after I discussed the need for ICU with the collection support specialist Dr. White.
[2019-05-19] MEDS: RINGERS SOLUTION,LACTATED 1,000 ML IV PRN ×2 (11:30→22:30)
[2019-05-19 11:57] LABS: ALBUMIN 3.6 g/dL (3.5-5.0); ALKALINE PHOSPHATASE 72 U/L (38-126); ANION GAP 10 (5-19); ASPARTATE AMINO TRANSFERASE 27 U/L (14-36); BILIRUBIN,DIRECT 0.1 mg/dL (0.0-0.4); BILIRUBIN,TOTAL 0.7 mg/dL (0.2-1.3); BLOOD UREA NITROGEN 23 mg/dL (7-20); CALCIUM 9.2 mg/dL (8.4-10.2); CARBON DIOXIDE 25 mmol/L (22-30); CHLORIDE 104 mmol/L (98-107); GLUCOSE 129 mg/dL (75-110); POTASSIUM 5.2 mmol/L (3.6-5.0); TOTAL PROTEIN 6.1 g/dL (6.3-8.2)
[2019-05-19] MEDS: FAMOTIDINE INJ/PF 20 MG/2 ML SDV IV SCH ×2 (13:32→21:39)
--- NOTE | 2019-05-19 13:32 | CRITICAL CARE ADMISSION REPORT ---
HPI - Diagnosis/Plan (1) Abdominal pain Qualifiers: Abdominal location: generalized Qualified Code(s): R10.84 - Generalized abdominal pain (2) COPD (chronic obstructive pulmonary disease) Qualifiers: (4) Vomiting and diarrhea Is this a current diagnosis for this admission?: Yes Plan: Consequence of hjer SBO. (5) Acute and chronic respiratory failure ([id number]) Qualifiers: Respiratory failure complication: hypoxia Is this a current diagnosis for this admission?: Yes Plan: Trouble weaning from the ventilator post-op. The patient will be ventialted overnight. CXR pending. ABG pending. Past Medical History Cardiac Medical History: Reports: Coronary Artery Disease, Hypertension Denies: Myocardial Infarction Pulmonary Medical History: Reports: Asthma - on home nebs & O2 3-3.5 , Bronchitis, Chronic Obstructive Pulmonary Disease (COPD) - On home oxygen at 3 L all the time., Respiratory Failure - Chronic hypoxemic on home oxygen, Sleep Apnea - On CPAP Denies: Pneumonia Neurological Medical History: Denies: Seizures Endocrine Medical History: Reports: Hypothyroidism, Obesity Malignancy Medical History: Reports: Breast Cancer, Colorectal Cancer GI Medical History: Reports: Other - Umbilical hernia Denies: Hepatitis, Hiatal Hernia Musculoskeltal Medical History: Reports: Arthritis - generalized Psychiatric Medical History: Reports: Depression Hematology: Denies: Anemia, Sickle Cell Disease Past Surgical History Past Surgical History: Reports: Cholecystectomy, Mastectomy - DOUBLE, NO NEED TO AVOID ARM, Other - History of surgery for vulvar and colon cancer, currently cancer free Denies: Amputation, Hysterectomy, Pacemaker Social/Family History - Social History Smoking Status: Current Every Day Smoker Cigarettes Packs Per Day: 0.8 Frequency of Alcohol Use: Rare Hx Recreational Drug Use: Yes Drugs: Marijuana Hx Prescription Drug Abuse: No - Medication/Allergies Home Medications: Albuterol Sulfate [Proair Hfa Inhalation Aerosol 8.5 gm Mdi] 1 puff IH ASDIR PRN 05/18/19 Arformoterol Tartrate [Brovana Inhalation Solution 15 mcg/2 mL] 1 vial IH RTBID 05/18/19 Ascorbic Acid [Vitamin C] 1,000 mg PO QAM 05/18/19 Aspirin [Ecotrin 81 mg EC Tablet] 81 mg PO QPM 05/18/19 Budesonide [Pulmicort Neb 0.5 mg/2 ml Ampul] 0.5 mg NEB RTBID 05/18/19 Cholecalciferol (Vitamin D3) [Vitamin D3] 2,000 unit PO QPM 05/18/19 Citalopram Hydrobromide [Celexa 20 mg Tablet] 25 mg PO DAILY 05/18/19 Cyanocobalamin (Vitamin B-12) [Vitamin B-12] 1,000 mcg PO DAILY 05/18/19 Docusate Sodium [Stool Softener] 100 mg PO BID 05/18/19 Furosemide [Lasix 40 mg Tablet] 40 mg PO DAILY 05/18/19 Htyickxx-Ujwrefl-Yydi 149-Hyal [Glucosamine Chondroitin Tablet] 1 each PO BID 05/18/19 Guaifenesin [Mucinex] 600 mg PO BID 05/18/19 Losartan Potassium [Cozaar 25 mg Tablet] 25 mg PO QAM 05/18/19 Multivitamin [One-A-Day Essential] 1 each PO QAM 05/18/19 Naproxen Sodium 600 mg PO BID 05/18/19 Nortriptyline HCl [Pamelor 25 Mg Capsule] 25 mg PO QPM 05/18/19 [place]-3 Fatty Acids/Fish Oil [[place] 3 Fish Oil Softgel] 1 each PO QPM 05/18/19 Pravastatin Sodium [Pravachol] 40 mg PO QPM 05/18/19 Roflumilast [Daliresp] 250 mcg PO BID 05/18/19 Selenium [Selenimin] 600 mcg PO BID 05/18/19 Tamsulosin HCl [Flomax 0.4 mg Cap.sr] 0.4 mg PO QAM 05/18/19 Thyroid (Pork) [[place] Thyroid 60 Mg Tablet] 150 mg PO Q2D 05/18/19 Thyroid,Pork [[place] Thyroid] 120 mg PO Q2D 05/18/19 Tiotropium [place] [Spiriva Handihaler 5 Cap/Kit (18 Mcg/Cap)] 1 cap IH DAILY 05/18/19 Ubidecarenone [Co Q-10] 100 mg PO QAM 05/18/19 Vitamin E 1,000 unit PO QPM 05/18/19 Allergies/Adverse Reactions: doxycycline [Doxycycline] Allergy (Severe, Verified 03/27/17 13:49) VOMITING Opioids - Morphine Analogues Allergy (Severe, Verified 03/27/17 13:49) Anaphylaxis Penicillins Allergy (Verified 03/27/17 13:49) Anaphylaxis Physical Exam Vital Signs: Temp Pulse Resp BP Pulse Ox 97.2 F 83 16 105/65 95 05/19/19 11:26 05/19/19 11:26 05/19/19 11:26 05/19/19 11:26 05/19/19 11:26 Intake & Output 05/18/19 05/19/19 05/20/19 06:59 06:59 06:59 Intake Total 100 6000 Output Total 20 3900 Balance 80 2100 Weight 89.6 kg 92.4 kg Weight/Height Weight 92.4 kg Height 5 ft 5 in Laboratory/Radiographs Laboratory Results: 05/19/19 06:05 05/19/19 11:28 05/18/19 05/18/19 05/18/19 15:35 15:35 18:10 WBC 10.2 RBC 4.51 Hgb 14.3 Hct 42.2 MCV 94 MCH 31.6 MCHC 33.8 RDW 13.2 Plt Count 200 Seg Neutrophils % 88.3 H Sodium 139.4 Potassium 4.4 Chloride 99 Carbon Dioxide 32 H Anion Gap 8 BUN 22 H Creatinine 0.67 Est GFR ( Amer) > 60 Est GFR (Non-Af Amer) Glucose 126 H Calcium 9.7 Total Bilirubin 0.4 AST 22 Alkaline Phosphatase 90 Total Protein 6.7 Albumin 4.1 Lipase 47.5 Urine Color YELLOW Urine Appearance SLIGHTLY-CLOUDY Urine pH 5.0 Ur Specific [place] 1.017 Urine Protein NEGATIVE Urine Glucose (UA) NEGATIVE Urine Ketones TRACE H Urine Blood NEGATIVE Urine Nitrite NEGATIVE Ur Leukocyte Esterase NEGATIVE Urine WBC (Auto) 3 Urine RBC (Auto) 8 05/19/19 05/19/19 05/19/19 06:05 06:05 11:28 WBC 16.8 H RBC 4.63 Hgb 14.6 Hct 43.5 MCV 94 MCH 31.4 MCHC 33.5 RDW 13.3 Plt Count 190 Seg Neutrophils % Sodium Cancelled 138.5 Potassium Cancelled 5.2 H Chloride Cancelled 104 Carbon Dioxide Cancelled 25 Anion Gap Cancelled 10 BUN Cancelled 23 H Creatinine Cancelled 0.99 Est GFR ( Amer) Cancelled > 60 Est GFR (Non-Af Amer) Cancelled Glucose Cancelled 129 H Calcium Cancelled 9.2 Total Bilirubin Cancelled 0.7 AST Cancelled 27 Alkaline Phosphatase Cancelled 72 Total Protein Cancelled 6.1 L Albumin Cancelled 3.6 Lipase Urine Color Urine Appearance Urine pH Ur Specific [place] Urine Protein Urine Glucose (UA) Urine Ketones Urine Blood Urine Nitrite Ur Leukocyte Esterase Urine WBC (Auto) Urine RBC (Auto) Impressions: Abdomen/Pelvis CT 05/18/19 17:52 IMPRESSION: Small bowel obstruction with loops in the mid abdomen measuring 4.7 cm, transition point appears to be in the right mid abdomen. Moderate inflammatory changes - free fluid. KUB X-Ray 05/18/19 19:21 IMPRESSION: NG tube tip in the stomach. Critical Time -: The care of a critically ill patient is dynamic. This note represents a static moment in the admission process. orders and treatments may be given simulataneously and urgentl, and time is not international account representative of the treatment process. This patient requires Critical Care secondary to life threating organ or limb dysfunction. Without the need for Critical Care services, the patient is at risk for increasid mortality and morbidity.
[2019-05-19] MEDS ORDERED: ROCURONIUM BROMIDE INJ 50 MG/5 ML VIAL IV ONE (14:25)
[2019-05-19] MEDS ORDERED: PHENYLEPHRINE HCL INJ/PF 10 MG/1 ML SDV ONE (14:25)
[2019-05-19] MEDS ORDERED: SUCCINYLCHOLINE CHLORIDE INJ 200 MG/10 ML VIAL ONE (14:25)
[2019-05-19] MEDS ORDERED: ONDANSETRON HCL INJ/PF 4 MG/2 ML SDV ONE (14:25)
[2019-05-19] MEDS ORDERED: DEXAMETHASONE SOD PHOSPHATE INJ 4 MG/1 ML VIAL ONE (14:25)
[2019-05-19 14:42] LABS: ARTERIAL BLOOD BASE EXCESS 1.4 mmol/L; ARTERIAL BLOOD H2CO3 1.49 mmol/L (1.05-1.35); ARTERIAL BLOOD HCO3 27.5 mmol/L (20-24); ARTERIAL BLOOD O2 SATURATION 94.1 % (94-98); ARTERIAL BLOOD PCO2 49.5 mmHg (35-45); ARTERIAL BLOOD PH 7.36 (7.35-7.45); ARTERIAL BLOOD PO2 73.4 mmHg (80-100)
[2019-05-19 14:46] LABS: ARTERIAL BLOOD FIO2 40
--- NOTE | 2019-05-19 16:40 | RADIOLOGY REPORT (SQ) ---
EXAM DESCRIPTION: CHEST SINGLE VIEW COMPLETED DATE/TIME: 05/19/2019 4:30 pm REASON FOR STUDY: patient newly intubated COMPARISON: 12/24/2017. EXAM PARAMETERS: NUMBER OF VIEWS: One view. TECHNIQUE: Single frontal radiographic view of the chest acquired. RADIATION DOSE: NA LIMITATIONS: None. FINDINGS: LUNGS AND PLEURA: Linear densities in the lung bases, left greater than right. No pleural effusion or pneumothorax. MEDIASTINUM AND HILAR STRUCTURES: No masses. Contour normal. HEART AND VASCULAR STRUCTURES: Heart normal in size. Normal vasculature. BONES: No acute findings. HARDWARE: Endotracheal tube with the tip located 5 cm proximal to the jeff. Nasogastric tube with the tip located in the stomach. OTHER: No other significant finding. IMPRESSION: 1. LIFE LINES APPEAR TO BE IN APPROPRIATE POSITION. 2. LINEAR ATELECTASIS AND/OR SCARRING IN THE LUNG BASES. CANNOT EXCLUDE EARLY PNEUMONIA IN THE LEFT LUNG BASE. TECHNICAL DOCUMENTATION: JOB ID: [id number] [employer]- All Rights Reserved Reading location - IP/workstation name: [email or web address]
[2019-05-19] MEDS: PROPOFOL 1,000 MG/100 ML INFUS..BTL IV PRN (17:33)
[2019-05-19] MEDS ORDERED: RINGERS SOLUTION,LACTATED 500 ML IV ONE (21:30)
[2019-05-19] MEDS: CIPROFLOXACIN 400 MG/D5W RTU 400 MG/200 ML RTUPB IV SCH (21:35)
--- NOTE | 2019-05-19 22:06 | RADIOLOGY REPORT (SQ) ---
XR CHEST 1 VIEW 05/19/2019 at 9:44 PM. CLINICAL STATEMENT: Decrease 02 stats, Resp distress COMPARISON: 05/19/2019 at 4:31 PM. FINDINGS: Heart is moderately enlarged. Bibasilar atelectatic changes. Endotracheal tube and enteric tube are in place. No pneumothorax. No pulmonary edema. No significant pleural effusions. IMPRESSION: Endotracheal tube and enteric tube are in place. Bibasilar atelectatic changes.
[2019-05-20] MEDS: RINGERS SOLUTION,LACTATED 1,000 ML IV PRN ×3 (00:07→17:51)
[2019-05-20] MEDS: PROPOFOL 1,000 MG/100 ML INFUS..BTL IV PRN ×2 (00:07→05:19)
[2019-05-20] MEDS: HEPARIN SOD (PORCINE) 5,000 UNIT/ML 1 ML VIAL SUBCUT SCH ×3 (05:20→21:35)
[2019-05-20] MEDS ORDERED: RINGERS SOLUTION,LACTATED 500 ML IV ONE (07:45)
[2019-05-20] MEDS: IPRATROPIUM/ALBUTEROL 0.5-2.5 MG/3 ML AMPUL NEB SCH ×2 (07:46→20:03)
[2019-05-20] MEDS ORDERED: IPRATROPIUM/ALBUTEROL 0.5-2.5 MG/3 ML AMPUL NEB PRN (07:50)
--- NOTE | 2019-05-20 07:53 | PDOC PROGRESS REPORT ---
Subjective Progress Note for:: 05/20/19 Subjective:: The patient is POD #1. Her Bp tailed off during the night. Her urine output is a little low as well. Reason For Visit: SMALL BOWEL OBSTRUCTION Physical Exam Vital Signs: Temp Pulse Resp BP Pulse Ox 98.2 F 100 17 83/48 L 98 05/20/19 05:51 05/19/19 22:00 05/20/19 05:33 05/20/19 05:33 05/20/19 05:33 Intake & Output 05/19/19 05/20/19 05/21/19 06:59 06:59 06:59 Intake Total 100 7233 Output Total 20 5174 Balance 80 2059 Weight 89.6 kg 94.3 kg General appearance: PRESENT: no acute distress Head exam: PRESENT: normocephalic Eye exam: PRESENT: conjunctiva pink Mouth exam: PRESENT: dry mucosa Respiratory exam: PRESENT: symmetrical Additional comments: Minor scattered wheezes Cardiovascular exam: PRESENT: RRR, +S1, +S2 Pulses: PRESENT: +1 pedal pulses bilateral Vascular exam: PRESENT: normal capillary refill GI/Abdominal exam: PRESENT: hypoactive bowel sounds, soft. ABSENT: guarding Extremities exam: ABSENT: pedal edema Results Laboratory Results: 05/19/19 06:05 05/19/19 11:28 05/19/19 05/19/19 05/19/19 06:05 11:28 14:35 Carbonic Acid 1.49 H HCO3/H2CO3 Ratio 18:1 ABG pH 7.36 ABG pCO2 49.5 H ABG pO2 73.4 L ABG HCO3 27.5 H ABG O2 Saturation 94.1 ABG Base Excess 1.4 FiO2 40 Sodium Cancelled 138.5 Potassium Cancelled 5.2 H Chloride Cancelled 104 Carbon Dioxide Cancelled 25 Anion Gap Cancelled 10 BUN Cancelled 23 H Creatinine Cancelled 0.99 Est GFR ( Amer) Cancelled > 60 Est GFR (Non-Af Amer) Cancelled Glucose Cancelled 129 H Calcium Cancelled 9.2 Total Bilirubin Cancelled 0.7 AST Cancelled 27 Alkaline Phosphatase Cancelled 72 Total Protein Cancelled 6.1 L Albumin Cancelled 3.6 Impressions: Abdomen/Pelvis CT 05/18/19 17:52 IMPRESSION: Small bowel obstruction with loops in the mid abdomen measuring 4.7 cm, transition point appears to be in the right mid abdomen. Moderate inflammatory changes - free fluid. KUB X-Ray 05/18/19 19:21 IMPRESSION: NG tube tip in the stomach. Chest X-Ray 05/19/19 13:12 IMPRESSION: 1. LIFE LINES APPEAR TO BE IN APPROPRIATE POSITION. 2. LINEAR ATELECTASIS AND/OR SCARRING IN THE LUNG BASES. CANNOT EXCLUDE EARLY PNEUMONIA IN THE LEFT LUNG BASE. Assessment & Plan - Diagnosis (1) COPD (chronic obstructive pulmonary disease) Qualifiers: Is this a current diagnosis for this admission?: Yes Plan: This patient has known COPD and has been on home 02. CXR looks clear with ET inplace. I am hoping we can wean the patient today (2) Small bowel obstruction Is this a current diagnosis for this admission?: Yes Plan: 05/20 Patient is POD #1. Has been a little hypotensive. getting the 2nd of two boluses ansd will Increase maintainance fluids a s well. Wound is dry Defer to sugery (3) Acute and chronic respiratory failure ([id number]) Qualifiers: Respiratory failure complication: hypoxia Is this a current diagnosis for this admission?: Yes - Time Time Spent with patient: 25-34 minutes Anticipated discharge: Home Within: within 36 hours, within 72 hours
[2019-05-20] MEDS: FAMOTIDINE INJ/PF 20 MG/2 ML SDV IV SCH ×2 (09:29→21:35)
[2019-05-20] MEDS: NICOTINE 14 MG/24 HR PATCH.TD24 TD SCH (09:29)
[2019-05-20] MEDS: CIPROFLOXACIN 400 MG/D5W RTU 400 MG/200 ML RTUPB IV SCH ×2 (09:30→21:34)
--- NOTE | 2019-05-20 12:20 | PDOC PROGRESS REPORT ---
Subjective Progress Note for:: 05/20/19 Subjective:: Still intubated but appears to be alert with no complaints of significant abdominal pains Reason For Visit: SMALL BOWEL OBSTRUCTION Physical Exam Vital Signs: Temp Pulse Resp BP Pulse Ox 99.4 F 88 13 108/61 98 05/20/19 10:00 05/20/19 10:00 05/20/19 12:00 05/20/19 11:48 05/20/19 12:00 Intake & Output 05/19/19 05/20/19 05/21/19 06:59 06:59 06:59 Intake Total 100 7233 1256 Output Total 20 5174 200 Balance 80 2059 1056 Weight 89.6 kg 94.3 kg 93.9 kg Exam: Abdomen is soft with minimal distention. The incision site is clean and dry Results Laboratory Results: 05/19/19 06:05 05/19/19 11:28 05/19/19 14:35 Carbonic Acid 1.49 H HCO3/H2CO3 Ratio 18:1 ABG pH 7.36 ABG pCO2 49.5 H ABG pO2 73.4 L ABG HCO3 27.5 H ABG O2 Saturation 94.1 ABG Base Excess 1.4 FiO2 40 Impressions: Abdomen/Pelvis CT 05/18/19 17:52 IMPRESSION: Small bowel obstruction with loops in the mid abdomen measuring 4.7 cm, transition point appears to be in the right mid abdomen. Moderate inflammatory changes - free fluid. KUB X-Ray 05/18/19 19:21 IMPRESSION: NG tube tip in the stomach. Chest X-Ray 05/19/19 13:12 IMPRESSION: 1. LIFE LINES APPEAR TO BE IN APPROPRIATE POSITION. 2. LINEAR ATELECTASIS AND/OR SCARRING IN THE LUNG BASES. CANNOT EXCLUDE EARLY PNEUMONIA IN THE LEFT LUNG BASE. Assessment & Plan - Diagnosis (1) Small bowel strangulated hernia Is this a current diagnosis for this admission?: Yes - Time Time Spent with patient: 15-24 minutes - Inpatient Certification Medical Necessity: Need Close Monitoring Due to Risk of Patient Decompensation, Need For Continuous Telemetry Monitoring, Need for IV Antibiotics - Plan Summary Plan Summary: Patient had evidence of hypotension with hypovolemia last night. This responded to IV fluid boluses. Her urine output this morning is improved as well as her vital signs. Patient is for extubation this morning. We will keep her NG tube for the next 24 to 48hours and continue with the IV antibiotic therapy
[2019-05-20 12:35] LABS: ARTERIAL BLOOD BASE EXCESS 4.5 mmol/L; ARTERIAL BLOOD FIO2 40%; ARTERIAL BLOOD H2CO3 1.26 mmol/L (1.05-1.35); ARTERIAL BLOOD HCO3 28.8 mmol/L (20-24); ARTERIAL BLOOD O2 SATURATION 95.9 % (94-98); ARTERIAL BLOOD PCO2 41.7 mmHg (35-45); ARTERIAL BLOOD PH 7.46 (7.35-7.45); ARTERIAL BLOOD PO2 76.4 mmHg (80-100); ARTERIAL BLOOD TOTAL CO2 30.1 mmol/L (21-25)
[2019-05-20 14:31] LABS: ARTERIAL BLOOD BASE EXCESS 4.3 mmol/L; ARTERIAL BLOOD FIO2 40%; ARTERIAL BLOOD H2CO3 1.23 mmol/L (1.05-1.35); ARTERIAL BLOOD HCO3 28.5 mmol/L (20-24); ARTERIAL BLOOD O2 SATURATION 95.1 % (94-98); ARTERIAL BLOOD PH 7.46 (7.35-7.45); ARTERIAL BLOOD PO2 71.3 mmHg (80-100); ARTERIAL BLOOD TOTAL CO2 29.8 mmol/L (21-25)
[2019-05-20] MEDS ORDERED: METHYLPREDNISOLONE INJ 40 MG/1 ML SDV IV ONE (21:00)
[2019-05-21] MEDS: RINGERS SOLUTION,LACTATED 1,000 ML IV PRN ×4 (02:36→22:06)
[2019-05-21] MEDS: HEPARIN SOD (PORCINE) 5,000 UNIT/ML 1 ML VIAL SUBCUT SCH ×3 (06:22→21:19)
[2019-05-21] MEDS: IPRATROPIUM/ALBUTEROL 0.5-2.5 MG/3 ML AMPUL NEB SCH ×2 (08:47→20:52)
--- NOTE | 2019-05-21 09:04 | PDOC PROGRESS REPORT ---
Subjective Progress Note for:: 05/21/19 Subjective:: The patient is POD #1. Her Bp tailed off during the night. Her urine output is a little low as well. 05/21 The patient was extubated yesterday. her resoiratory staus appears to be ok. The patient ahs sme residual abdominal pain. She will be out of bed today. Still has NGT in place Reason For Visit: SMALL BOWEL OBSTRUCTION Physical Exam Vital Signs: Temp Pulse Resp BP Pulse Ox 98.8 F 77 20 109/56 L 95 05/21/19 04:37 05/21/19 08:47 05/21/19 08:47 05/21/19 07:49 05/21/19 08:47 Intake & Output 05/20/19 05/21/19 05/22/19 06:59 06:59 06:59 Intake Total 7233 4150 Output Total 5174 3360 100 Balance 2059 790 -100 Weight 94.3 kg 95.7 kg General appearance: PRESENT: no acute distress, well-developed, well-nourished Head exam: PRESENT: atraumatic, normocephalic Eye exam: PRESENT: conjunctiva pink, EOMI, PERRLA. ABSENT: scleral icterus Ear exam: PRESENT: normal external ear exam Mouth exam: PRESENT: moist, tongue midline Neck exam: PRESENT: full ROM. ABSENT: carotid bruit, JVD, lymphadenopathy, thyromegaly Respiratory exam: PRESENT: clear to auscultation maria a, unlabored Cardiovascular exam: PRESENT: RRR. ABSENT: diastolic murmur, rubs, systolic murmur Pulses: PRESENT: normal carotid pulses, normal dorsalis pedis pul, +2 pedal pulses bilateral Vascular exam: PRESENT: normal capillary refill GI/Abdominal exam: PRESENT: normal bowel sounds, soft. ABSENT: distended, guarding, mass, organolmegaly, rebound, tenderness Rectal exam: PRESENT: deferred Extremities exam: PRESENT: full ROM Musculoskeletal exam: PRESENT: full ROM Neurological exam: PRESENT: alert, awake, oriented to person, oriented to place, oriented to time, oriented to situation, CN II-XII grossly intact. ABSENT: motor sensory deficit Psychiatric exam: PRESENT: appropriate affect, normal mood. ABSENT: homicidal ideation, suicidal ideation Skin exam: PRESENT: dry, intact, warm. ABSENT: cyanosis, rash Results Laboratory Results: 05/19/19 06:05 05/19/19 11:28 05/20/19 05/20/19 12:10 14:08 Carbonic Acid 1.26 1.23 HCO3/H2CO3 Ratio 22:1 23:1 ABG pH 7.46 H 7.46 H ABG pCO2 41.7 41.0 ABG pO2 76.4 L 71.3 L ABG HCO3 28.8 H 28.5 H ABG O2 Saturation 95.9 95.1 ABG Base Excess 4.5 4.3 FiO2 40% 40% Impressions: Abdomen/Pelvis CT 05/18/19 17:52 IMPRESSION: Small bowel obstruction with loops in the mid abdomen measuring 4.7 cm, transition point appears to be in the right mid abdomen. Moderate inflammatory changes - free fluid. KUB X-Ray 05/18/19 19:21 IMPRESSION: NG tube tip in the stomach. Chest X-Ray 05/19/19 13:12 IMPRESSION: 1. LIFE LINES APPEAR TO BE IN APPROPRIATE POSITION. 2. LINEAR ATELECTASIS AND/OR SCARRING IN THE LUNG BASES. CANNOT EXCLUDE EARLY PNEUMONIA IN THE LEFT LUNG BASE. Assessment & Plan - Diagnosis (1) COPD (chronic obstructive pulmonary disease) Qualifiers: Is this a current diagnosis for this admission?: Yes Plan: This patient has known COPD and has been on home . CXR looks clear with ET inplace. I am hoping we can wean the patient today 05/21 The patient was extubated yesterday. Does not appear short of breath. She si getting regualr HHN. No major complaints (2) Small bowel obstruction Is this a current diagnosis for this admission?: Yes Plan: 05/20 Patient is POD #1. Has been a little hypotensive. getting the 2nd of two boluses ansd will Increase maintainance fluids a s well. Wound is dry Defer to surgery 05/22 S/P resection of asmall bowel for closed loop obstruction. Doing well. Does have NGT in place. Miniaml drainage. Abodomen is soft (3) Acute and chronic respiratory failure ([id number]) Qualifiers: Respiratory failure complication: hypoxia Is this a current diagnosis for this admission?: Yes - Time Time Spent with patient: 15-24 minutes Anticipated discharge: Home Within: within 72 hours
[2019-05-21 09:50] LABS: ABSOLUTE LYMPHOCYTES (AUTO) 1.4 10^3/uL (0.5-4.7); ABSOLUTE MONOCYTES (AUTO) 0.5 10^3/uL (0.1-1.4); ABSOLUTE NEUT (AUTO) 6.9 10^3/uL (1.7-8.2); BASOPHILS % (AUTO) 0.2 % (0-2); HEMATOCRIT 33.9 % (36.0-47.0); LYMPHOCYTES % (AUTO) 15.7 % (13-45); MEAN CORPUSCULAR HEMOGLOBIN 31.5 pg (27.0-33.4); MEAN CORPUSCULAR HGB CONC 33.4 g/dL (32.0-36.0); MEAN CORPUSCULAR VOLUME 94 fl (80-97); MONOCYTES % (AUTO) 5.4 % (3-13); PLATELET COUNT 150 10^3/uL (150-450); RED BLOOD COUNT 3.59 10^6/uL (3.72-5.28); RED CELL DISTRIBUTION WIDTH 13.1 % (11.5-14.0); SEGMENTED NEUTROPHILS % (AUTO) 78.7 % (42-78); TOTAL CELLS COUNTED % (AUTO) 100 %; WHITE BLOOD COUNT 8.8 10^3/uL (4.0-10.5)
[2019-05-21 09:55] LABS: HEMOGLOBIN 11.3 g/dL (12.0-15.5)
[2019-05-21] MEDS: CIPROFLOXACIN 400 MG/D5W RTU 400 MG/200 ML RTUPB IV SCH ×2 (09:57→21:19)
[2019-05-21] MEDS: NICOTINE 14 MG/24 HR PATCH.TD24 TD SCH (09:57)
[2019-05-21] MEDS: FAMOTIDINE INJ/PF 20 MG/2 ML SDV IV SCH ×2 (09:57→21:19)
[2019-05-21 10:00] LABS: ANION GAP 6 (5-19); BLOOD UREA NITROGEN 15 mg/dL (7-20); CALCIUM 8.6 mg/dL (8.4-10.2); CARBON DIOXIDE 26 mmol/L (22-30); CHLORIDE 105 mmol/L (98-107); GLUCOSE 94 mg/dL (75-110); POTASSIUM 4.8 mmol/L (3.6-5.0)
[2019-05-21] MEDS ORDERED: MORPHINE SULFATE 10 MG/ML INJ IV PRN (13:31)
[2019-05-21] MEDS: MORPHINE SULFATE 10 MG/ML INJ IV PRN ×2 (13:53→22:05)
--- NOTE | 2019-05-21 14:14 | PDOC PROGRESS REPORT ---
Subjective Progress Note for:: 05/21/19 Subjective:: Patient feels well, no complaints. Not receiving any pain medicine. Still has NG tube and Razo in; tolerated extubation. Reason For Visit: SMALL BOWEL OBSTRUCTION Physical Exam Vital Signs: Temp Pulse Resp BP Pulse Ox 98.9 F 76 18 105/55 L 96 05/21/19 09:26 05/21/19 12:00 05/21/19 12:00 05/21/19 12:00 05/21/19 12:00 Intake & Output 05/20/19 05/21/19 05/22/19 06:59 06:59 06:59 Intake Total 7233 4150 1320 Output Total 5174 3360 100 Balance 2059 790 1220 Weight 94.3 kg 95.7 kg General appearance: PRESENT: no acute distress GI/Abdominal exam: PRESENT: other - Abdomen minimally distended. Abdifatah intact, dressing left off. There are no peritoneal signs. Results Laboratory Results: 05/21/19 09:11 05/21/19 09:11 05/20/19 05/21/19 05/21/19 14:08 09:11 09:11 WBC 8.8 RBC 3.59 L Hgb 11.3 L D Hct 33.9 L MCV 94 MCH 31.5 MCHC 33.4 RDW 13.1 Plt Count 150 Seg Neutrophils % 78.7 H Carbonic Acid 1.23 HCO3/H2CO3 Ratio 23:1 ABG pH 7.46 H ABG pCO2 41.0 ABG pO2 71.3 L ABG HCO3 28.5 H ABG O2 Saturation 95.1 ABG Base Excess 4.3 FiO2 40% Sodium 136.5 L Potassium 4.8 Chloride 105 Carbon Dioxide 26 Anion Gap 6 BUN 15 Creatinine 0.61 Est GFR ( Amer) > 60 Glucose 94 Calcium 8.6 Impressions: Abdomen/Pelvis CT 05/18/19 17:52 IMPRESSION: Small bowel obstruction with loops in the mid abdomen measuring 4.7 cm, transition point appears to be in the right mid abdomen. Moderate inflammatory changes - free fluid. KUB X-Ray 05/18/19 19:21 IMPRESSION: NG tube tip in the stomach. Chest X-Ray 05/19/19 13:12 IMPRESSION: 1. LIFE LINES APPEAR TO BE IN APPROPRIATE POSITION. 2. LINEAR ATELECTASIS AND/OR SCARRING IN THE LUNG BASES. CANNOT EXCLUDE EARLY PNEUMONIA IN THE LEFT LUNG BASE. Assessment & Plan - Diagnosis (1) Small bowel strangulated hernia Is this a current diagnosis for this admission?: Yes Plan: Impression: Patient is 3 days status post exploratory laparotomy, small bowel resection with primary anastomosis, doing well, tolerated extubation. Excellent hemodynamic parameters and laboratory studies Recommendations: 1. We will get out of bed to chair; we will clamp NG tube removed tube if patient tolerates this well. 2. Anticipate getting Razo 3. Anticipate transfer to floor if patient continues to do well.
[2019-05-21] MEDS: ONDANSETRON HCL INJ/PF 4 MG/2 ML SDV IV PRN (22:12)
[2019-05-22] MEDS: HEPARIN SOD (PORCINE) 5,000 UNIT/ML 1 ML VIAL SUBCUT SCH ×3 (05:26→21:33)
[2019-05-22] MEDS: IPRATROPIUM/ALBUTEROL 0.5-2.5 MG/3 ML AMPUL NEB SCH ×2 (08:59→20:39)
--- NOTE | 2019-05-22 09:11 | PDOC PROGRESS REPORT ---
Subjective Progress Note for:: 05/22/19 Subjective:: The patient is POD #1. Her Bp tailed off during the night. Her urine output is a little low as well. 05/21 The patient was extubated yesterday. her resoiratory staus appears to be ok. The patient ahs sme residual abdominal pain. She will be out of bed today. Still has NGT in place 05/22 The patient looks ok overall. She did have some vomiting this AM Her NGT had been clamped but had to be placedon low suction. Her respiratopry status appears to be ok. Have cut down on her IV fluids at this point. Has about a 5 liter net positve balance the past 3 days. The patient did pass some flatus yesterday Reason For Visit: SMALL BOWEL OBSTRUCTION Physical Exam Vital Signs: Temp Pulse Resp BP Pulse Ox 98.1 F 84 16 143/65 H 99 05/22/19 03:58 05/21/19 20:50 05/22/19 08:00 05/22/19 07:49 05/22/19 08:00 Intake & Output 05/21/19 05/22/19 05/23/19 06:59 06:59 06:59 Intake Total 4150 4453 Output Total 3360 2180 125 Balance 790 2273 -125 Weight 95.7 kg 98.9 kg Results Laboratory Results: 05/21/19 09:11 05/21/19 09:11 05/21/19 05/21/19 09:11 09:11 WBC 8.8 RBC 3.59 L Hgb 11.3 L D Hct 33.9 L MCV 94 MCH 31.5 MCHC 33.4 RDW 13.1 Plt Count 150 Seg Neutrophils % 78.7 H Sodium 136.5 L Potassium 4.8 Chloride 105 Carbon Dioxide 26 Anion Gap 6 BUN 15 Creatinine 0.61 Est GFR ( Amer) > 60 Glucose 94 Calcium 8.6 Impressions: Abdomen/Pelvis CT 05/18/19 17:52 IMPRESSION: Small bowel obstruction with loops in the mid abdomen measuring 4.7 cm, transition point appears to be in the right mid abdomen. Moderate inflammatory changes - free fluid. KUB X-Ray 05/18/19 19:21 IMPRESSION: NG tube tip in the stomach. Chest X-Ray 05/19/19 13:12 IMPRESSION: 1. LIFE LINES APPEAR TO BE IN APPROPRIATE POSITION. 2. LINEAR ATELECTASIS AND/OR SCARRING IN THE LUNG BASES. CANNOT EXCLUDE EARLY PNEUMONIA IN THE LEFT LUNG BASE. Assessment & Plan - Diagnosis (1) COPD (chronic obstructive pulmonary disease) Qualifiers: Is this a current diagnosis for this admission?: Yes (2) Small bowel obstruction Is this a current diagnosis for this admission?: Yes (3) Acute and chronic respiratory failure ([id number]) Qualifiers: Respiratory failure complication: hypoxia Is this a current diagnosis for this admission?: Yes - Time Time Spent with patient: 25-34 minutes Medications reviewed and adjusted accordingly: Yes Within: within 72 hours
[2019-05-22] MEDS: NICOTINE 14 MG/24 HR PATCH.TD24 TD SCH (09:51)
[2019-05-22] MEDS: FAMOTIDINE INJ/PF 20 MG/2 ML SDV IV SCH ×2 (09:51→21:33)
[2019-05-22] MEDS: CIPROFLOXACIN 400 MG/D5W RTU 400 MG/200 ML RTUPB IV SCH ×2 (10:04→21:33)
--- NOTE | 2019-05-22 10:09 | RADIOLOGY REPORT (SQ) ---
EXAM DESCRIPTION: ABDOMEN 2 VIEWS COMPLETED DATE/TIME: 05/22/2019 9:51 am REASON FOR STUDY: vomiting post-op,?ileus COMPARISON: Abdominal CT 05/18/2019. NUMBER OF VIEWS: Two views. TECHNIQUE: Supine and erect/decubitus radiographic images of the abdomen acquired. LIMITATIONS: None. FINDINGS: FREE AIR: None. No abnormal gas collections. LUNG BASES: Not evaluated. BOWEL GAS PATTERN: Gaseous distention of proximal small bowel loops. Scattered air-fluid levels. Lo ops measure over 6 cm in transverse dimension. Stomach is decompressed. No distal small bowel or si gnificant large bowel gas. Minimal gas and stool in the rectum. CALCIFICATIONS: No suspicious calcifications. SOFT TISSUES: No gross mass or suggestion of organomegaly. HARDWARE: Nasogastric tube decompresses the stomach. Skin frandy are in place. BONES: No acute fracture. No worrisome bone lesions. OTHER: No other significant finding. IMPRESSION: 1. Markedly distended small bowel loops in the upper abdomen. While this could reflect postoperative ileus, there is essentially no gas seen distally and persistent or recurrent small bowel obstruction is in the differential. Nasogastric tube appears to be appropriately located. TECHNICAL DOCUMENTATION: JOB ID: [id number] [employer]- All Rights Reserved Reading location - IP/workstation name: [email or web address]
--- NOTE | 2019-05-22 10:16 | PDOC PROGRESS REPORT ---
Subjective Progress Note for:: 05/22/19 Subjective:: Patient is unhappy she had nausea and vomiting last night. Still in the ICU. Hemodynamically stable. Razo in catheter and NG tube still in Reason For Visit: SMALL BOWEL OBSTRUCTION Physical Exam Vital Signs: Temp Pulse Resp BP Pulse Ox 98.1 F 75 17 143/65 H 97 05/22/19 03:58 05/22/19 09:56 05/22/19 08:57 05/22/19 07:49 05/22/19 08:57 Intake & Output 05/21/19 05/22/19 05/23/19 06:59 06:59 06:59 Intake Total 4150 4453 Output Total 3360 2180 125 Balance 790 2273 -125 Weight 95.7 kg 98.9 kg General appearance: PRESENT: other - Looks tired Respiratory exam: PRESENT: other - Occasional rhonchi GI/Abdominal exam: PRESENT: other - Abdomen is distended, tympanitic; postop tenderness consistent with incision; no drainage. Extremities exam: PRESENT: +1 edema Neurological exam: PRESENT: alert, awake, oriented to person, oriented to place, oriented to time, oriented to situation Results Laboratory Results: 05/21/19 09:11 05/21/19 09:11 Impressions: Abdomen/Pelvis CT 05/18/19 17:52 IMPRESSION: Small bowel obstruction with loops in the mid abdomen measuring 4.7 cm, transition point appears to be in the right mid abdomen. Moderate inf lammatory changes - free fluid. KUB X-Ray 05/18/19 19:21 IMPRESSION: NG tube tip in the stomach. Chest X-Ray 05/19/19 13:12 IMPRESSION: 1. LIFE LINES APPEAR TO BE IN APPROPRIATE POSITION. 2. LINEAR ATELECTASIS AND/OR SCARRING IN THE LUNG BASES. CANNOT EXCLUDE EARLY PNEUMONIA IN THE LEFT LUNG BASE. Abdomen X-Ray 05/22/19 00:00 IMPRESSION: 1. Markedly distended small bowel loops in the upper abdomen. While this could reflect postoperative ileus, there is essentially no gas seen distally and persistent or recurrent small bowel obstruction is in the differential. Nasogastric tube appears to be appropriately located. Assessment & Plan - Diagnosis (1) Small bowel strangulated hernia Is this a current diagnosis for this admission?: Yes Plan: Impression: Patient is 3 days status post exploratory laparotomy, small bowel resection, primary anastomosis with closure, now with postop ileus, requiring continued nasogastric decompression; abdominal x-ray this morning shows mild dilated loops of small bowel with a paucity of gas in the colon Recommendations: 1. Continue IV fluids, nasogastric decompression 2. Check electrolytes in the morning 3. Pending upon patient's response in the next 24 to 48 hours, she may require parenteral nutritional support.
[2019-05-22] MEDS: ONDANSETRON HCL INJ/PF 4 MG/2 ML SDV IV PRN ×2 (10:19→18:13)
[2019-05-22] MEDS: MORPHINE SULFATE 10 MG/ML INJ IV PRN (18:13)
[2019-05-22] MEDS: RINGERS SOLUTION,LACTATED 1,000 ML IV PRN (20:55)
[2019-05-22 23:02] LABS: ABSOLUTE EOSINOPHILS # (AUTO) 0.1 10^3/uL (0.0-0.6); ABSOLUTE LYMPHOCYTES (AUTO) 1.1 10^3/uL (0.5-4.7); ABSOLUTE MONOCYTES (AUTO) 0.6 10^3/uL (0.1-1.4); ABSOLUTE NEUT (AUTO) 3.6 10^3/uL (1.7-8.2); BASOPHILS % (AUTO) 0.7 % (0-2); EOSINOPHILS % (AUTO) 1.2 % (0-6); HEMATOCRIT 34.9 % (36.0-47.0); HEMOGLOBIN 11.8 g/dL (12.0-15.5); LYMPHOCYTES % (AUTO) 20.4 % (13-45); MEAN CORPUSCULAR HEMOGLOBIN 30.8 pg (27.0-33.4); MEAN CORPUSCULAR HGB CONC 33.7 g/dL (32.0-36.0); MEAN CORPUSCULAR VOLUME 91 fl (80-97); MONOCYTES % (AUTO) 11.1 % (3-13); PLATELET COUNT 200 10^3/uL (150-450); RED BLOOD COUNT 3.82 10^6/uL (3.72-5.28); SEGMENTED NEUTROPHILS % (AUTO) 66.6 % (42-78); TOTAL CELLS COUNTED % (AUTO) 100 %; WHITE BLOOD COUNT 5.4 10^3/uL (4.0-10.5)
[2019-05-22 23:14] LABS: BLOOD UREA NITROGEN 13 mg/dL (7-20); CALCIUM 8.6 mg/dL (8.4-10.2); CARBON DIOXIDE 30 mmol/L (22-30); CHLORIDE 99 mmol/L (98-107); GLUCOSE 126 mg/dL (75-110); POTASSIUM 4.1 mmol/L (3.6-5.0)
[2019-05-22 23:52] LABS: ANION GAP 4 (5-19)
[2019-05-23 04:04] LABS: ABSOLUTE EOSINOPHILS # (AUTO) 0.1 10^3/uL (0.0-0.6); ABSOLUTE LYMPHOCYTES (AUTO) 1.1 10^3/uL (0.5-4.7); ABSOLUTE MONOCYTES (AUTO) 0.7 10^3/uL (0.1-1.4); ABSOLUTE NEUT (AUTO) 2.8 10^3/uL (1.7-8.2); BASOPHILS % (AUTO) 0.2 % (0-2); EOSINOPHILS % (AUTO) 2.1 % (0-6); HEMATOCRIT 34.3 % (36.0-47.0); HEMOGLOBIN 11.5 g/dL (12.0-15.5); LYMPHOCYTES % (AUTO) 24.1 % (13-45); MEAN CORPUSCULAR HEMOGLOBIN 30.9 pg (27.0-33.4); MEAN CORPUSCULAR HGB CONC 33.6 g/dL (32.0-36.0); MEAN CORPUSCULAR VOLUME 92 fl (80-97); MONOCYTES % (AUTO) 14.3 % (3-13); PLATELET COUNT 195 10^3/uL (150-450); RED BLOOD COUNT 3.72 10^6/uL (3.72-5.28); RED CELL DISTRIBUTION WIDTH 12.7 % (11.5-14.0); SEGMENTED NEUTROPHILS % (AUTO) 59.3 % (42-78); TOTAL CELLS COUNTED % (AUTO) 100 %; WHITE BLOOD COUNT 4.7 10^3/uL (4.0-10.5)
[2019-05-23 04:26] LABS: BLOOD UREA NITROGEN 12 mg/dL (7-20); CALCIUM 8.4 mg/dL (8.4-10.2); GLUCOSE 105 mg/dL (75-110); POTASSIUM 4.2 mmol/L (3.6-5.0)
[2019-05-23 04:31] LABS: CARBON DIOXIDE 31 mmol/L (22-30); CHLORIDE 99 mmol/L (98-107)
[2019-05-23 04:35] LABS: ANION GAP 4 (5-19)
[2019-05-23] MEDS: HEPARIN SOD (PORCINE) 5,000 UNIT/ML 1 ML VIAL SUBCUT SCH ×3 (06:04→21:10)
[2019-05-23] MEDS: ONDANSETRON HCL INJ/PF 4 MG/2 ML SDV IV PRN (06:10)
[2019-05-23] MEDS: MORPHINE SULFATE 10 MG/ML INJ IV PRN (06:10)
[2019-05-23] MEDS: IPRATROPIUM/ALBUTEROL 0.5-2.5 MG/3 ML AMPUL NEB SCH ×2 (08:15→20:42)
--- NOTE | 2019-05-23 09:57 | PDOC PROGRESS REPORT ---
Subjective Progress Note for:: 05/23/19 Subjective:: The patient is POD #1. Her Bp tailed off during the night. Her urine output is a little low as well. 05/21 The patient was extubated yesterday. her resoiratory staus appears to be ok. The patient ahs sme residual abdominal pain. She will be out of bed today. Still has NGT in place 05/22 The patient looks ok overall. She did have some vomiting this AM Her NGT had been clamped but had to be placed on low suction. Her respiratopry status appears to be ok. Have cut down on her IV fluids at this point. Has about a 5 liter net positve balance the past 3 days. The patient did pass some flatus yesterday 05/23 The patient still has large drainage from her NGT , bilious. Abdomen remains somewhat distended. Vomited a couple pf times yesterday. the patient remains a little bit frustrated. Reason For Visit: SMALL BOWEL OBSTRUCTION Physical Exam Vital Signs: Temp Pulse Resp BP Pulse Ox 97.6 F 74 10 L 101/43 L 96 05/23/19 08:00 05/23/19 08:17 05/23/19 08:25 05/23/19 08:25 05/23/19 08:25 Intake & Output 05/22/19 05/23/19 05/24/19 06:59 06:59 06:59 Intake Total 4453 1460 Output Total 2180 3135 40 Balance 2273 -1675 -40 Weight 98.9 kg 96.1 kg General appearance: PRESENT: mild distress Eye exam: PRESENT: conjunctiva pink, EOMI, PERRLA Ear exam: PRESENT: normal external ear exam Mouth exam: PRESENT: moist Neck exam: ABSENT: full ROM, tenderness, thyromegaly Respiratory exam: PRESENT: clear to auscultation maria a, symmetrical. ABSENT: unlabored Cardiovascular exam: PRESENT: RRR, +S1, +S2 Pulses: PRESENT: +2 pedal pulses bilateral GI/Abdominal exam: PRESENT: normal bowel sounds, soft Rectal exam: PRESENT: deferred Musculoskeletal exam: PRESENT: full ROM Neurological exam: PRESENT: alert, awake, oriented to person, oriented to time, oriented to situation Results Laboratory Results: 05/23/19 03:50 05/23/19 03:50 05/22/19 05/22/19 05/23/19 22:42 22:42 03:50 WBC 5.4 4.7 RBC 3.82 3.72 Hgb 11.8 L 11.5 L Hct 34.9 L 34.3 L MCV 91 92 MCH 30.8 30.9 MCHC 33.7 33.6 RDW 13.0 12.7 Plt Count 200 195 Seg Neutrophils % 66.6 59.3 Sodium 133.4 L Potassium 4.1 Chloride 99 Carbon Dioxide 30 Anion Gap 4 L BUN 13 Creatinine 0.63 Est GFR ( Amer) > 60 Glucose 126 H Calcium 8.6 Magnesium 1.9 05/23/19 03:50 WBC RBC Hgb Hct MCV MCH MCHC RDW Plt Count Seg Neutrophils % Sodium 133.8 L Potassium 4.2 Chloride 99 Carbon Dioxide 31 H Anion Gap 4 L BUN 12 Creatinine 0.63 Est GFR ( Amer) > 60 Glucose 105 Calcium 8.4 Magnesium 2.0 Impressions: Abdomen/Pelvis CT 05/18/19 17:52 IMPRESSION: Small bowel obstruction with loops in the mid abdomen measuring 4.7 cm, transition point appears to be in the right mid abdomen. Moderate inflammatory changes - free fluid. KUB X-Ray 05/18/19 19:21 IMPRESSION: NG tube tip in the stomach. Chest X-Ray 05/19/19 13:12 IMPRESSION: 1. LIFE LINES APPEAR TO BE IN APPROPRIATE POSITION. 2. LINEAR ATELECTASIS AND/OR SCARRING IN THE LUNG BASES. CANNOT EXCLUDE EARLY PNEUMONIA IN THE LEFT LUNG BASE. Abdomen X-Ray 05/22/19 00:00 IMPRESSION: 1. Markedly distended small bowel loops in the upper abdomen. While this could reflect postoperative ileus, there is essentially no gas seen distally and persistent or recurrent small bowel obstruction is in the differential. Nasogastric tube appears to be appropriately located. Assessment & Plan - Diagnosis (1) COPD (chronic obstructive pulmonary disease) Qualifiers: Is this a current diagnosis for this admission?: Yes Plan: This patient has known COPD and has been on home . CXR looks clear with ET inplace. I am hoping we can wean the patient today 05/21 The patient was extubated yesterday. Does not appear short of breath. She si getting regualr HHN. No major complaints (2) Small bowel obstruction Is this a current diagnosis for this admission?: Yes Plan: 9/13 Patient is POD #1. Has been a little hypotensive. getting the 2nd of two boluses ansd will Increase maintainance fluids a s well. Wound is dry Defer to surgery 05/22 S/P resection of asmall bowel for closed loop obstruction. Doing well. Does have NGT in place. Miniaml drainage. Abodomen is soft (3) Acute and chronic respiratory failure ([id number]) Qualifiers: Respiratory failure complication: hypoxia Is this a current diagnosis for this admission?: Yes - Time Time Spent with patient: 15-24 minutes Anticipated discharge: Home with Homehealth Within: within 72 hours
[2019-05-23] MEDS: CIPROFLOXACIN 400 MG/D5W RTU 400 MG/200 ML RTUPB IV SCH ×2 (10:22→21:10)
[2019-05-23] MEDS: FAMOTIDINE INJ/PF 20 MG/2 ML SDV IV SCH ×2 (10:23→21:10)
[2019-05-23] MEDS: NICOTINE 14 MG/24 HR PATCH.TD24 TD SCH (10:23)
--- NOTE | 2019-05-23 11:22 | PDOC PROGRESS REPORT ---
Subjective Progress Note for:: 05/23/19 Subjective:: Feels reasonably well. Some midline abdominal pain. Not passing any flatus. Reason For Visit: SMALL BOWEL OBSTRUCTION Physical Exam Vital Signs: Temp Pulse Resp BP Pulse Ox 97.6 F 72 13 110/54 L 100 05/23/19 08:00 05/23/19 10:00 05/23/19 10:00 05/23/19 10:00 05/23/19 10:00 Intake & Output 05/22/19 05/23/19 05/24/19 06:59 06:59 06:59 Intake Total 4453 1460 Output Total 2180 3135 165 Balance 2273 -9085 -165 Weight 98.9 kg 96.1 kg General appearance: PRESENT: no acute distress, cooperative Respiratory exam: PRESENT: clear to auscultation maria a Cardiovascular exam: PRESENT: RRR GI/Abdominal exam: PRESENT: other - Soft, active bowel sounds, mild diffuse abdominal tenderness. Wound clean dry and intact with frandy. Mildly distended. Results Laboratory Results: 05/23/19 03:50 05/23/19 03:50 05/22/19 05/22/19 05/23/19 22:42 22:42 03:50 WBC 5.4 4.7 RBC 3.82 3.72 Hgb 11.8 L 11.5 L Hct 34.9 L 34.3 L MCV 91 92 MCH 30.8 30.9 MCHC 33.7 33.6 RDW 13.0 12.7 Plt Count 200 195 Seg Neutrophils % 66.6 59.3 Sodium 133.4 L Potassium 4.1 Chloride 99 Carbon Dioxide 30 Anion Gap 4 L BUN 13 Creatinine 0.63 Est GFR ( Amer) > 60 Glucose 126 H Calcium 8.6 Magnesium 1.9 05/23/19 03:50 WBC RBC Hgb Hct MCV MCH MCHC RDW Plt Count Seg Neutrophils % Sodium 133.8 L Potassium 4.2 Chloride 99 Carbon Dioxide 31 H Anion Gap 4 L BUN 12 Creatinine 0.63 Est GFR ( Amer) > 60 Glucose 105 Calcium 8.4 Magnesium 2.0 Impressions: Abdomen/Pelvis CT 05/18/19 17:52 IMPRESSION: Small bowel obstruction with loops in the mid abdomen measuring 4.7 cm, transition point appears to be in the right mid abdomen. Moderate inflammatory changes - free fluid. KUB X-Ray 05/18/19 19:21 IMPRESSION: NG tube tip in the stomach. Chest X-Ray 05/19/19 13:12 IMPRESSION: 1. LIFE LINES APPEAR TO BE IN APPROPRIATE POSITION. 2. LINEAR ATELECTASIS AND/OR SCARRING IN THE LUNG BASES. CANNOT EXCLUDE EARLY PNEUMONIA IN THE LEFT LUNG BASE. Abdomen X-Ray 05/22/19 00:00 IMPRESSION: 1. Markedly distended small bowel loops in the upper abdomen. While this could reflect postoperative ileus, there is essentially no gas seen distally and persistent or recurrent small bowel obstruction is in the differential. Nasogastric tube appears to be appropriately located. Assessment & Plan - Diagnosis (1) Small bowel obstruction Is this a current diagnosis for this admission?: Yes Plan: Status post exploratory laparotomy with lysis of adhesions and small bowel resection for segment of bowel due to closed-loop obstruction. Patient looks reasonably well. Will try to ambulate the patient more today. Her NG tube output is still bile stained and will keep it in for 1 more day. When patient is more ambulatory we will plan to DC her Razo catheter and transfer her to the regular floor.
[2019-05-23] MEDS: RINGERS SOLUTION,LACTATED 1,000 ML IV PRN (12:03)
[2019-05-24] MEDS: RINGERS SOLUTION,LACTATED 1,000 ML IV PRN (03:03)
[2019-05-24 04:33] LABS: BLOOD UREA NITROGEN 12 mg/dL (7-20); CALCIUM 8.8 mg/dL (8.4-10.2); CARBON DIOXIDE 36 mmol/L (22-30); CHLORIDE 93 mmol/L (98-107); GLUCOSE 97 mg/dL (75-110); POTASSIUM 3.6 mmol/L (3.6-5.0)
[2019-05-24 04:50] LABS: ANION GAP 4 (5-19)
[2019-05-24] MEDS: HEPARIN SOD (PORCINE) 5,000 UNIT/ML 1 ML VIAL SUBCUT SCH ×3 (05:38→21:10)
[2019-05-24] MEDS: IPRATROPIUM/ALBUTEROL 0.5-2.5 MG/3 ML AMPUL NEB SCH ×2 (08:14→19:16)
--- NOTE | 2019-05-24 09:05 | PDOC PROGRESS REPORT ---
Subjective Progress Note for:: 05/24/19 Reason For Visit: SMALL BOWEL OBSTRUCTION Physical Exam Vital Signs: Temp Pulse Resp BP Pulse Ox 98.0 F 71 14 104/57 L 94 05/24/19 08:00 05/24/19 08:14 05/24/19 08:14 05/24/19 08:00 05/24/19 08:14 Intake & Output 05/23/19 05/24/19 05/25/19 06:59 06:59 06:59 Intake Total 1460 3000 Output Total 3135 4955 665 Balance -6395 -1955 -665 Weight 96.1 kg 94 kg General appearance: PRESENT: no acute distress Head exam: PRESENT: normocephalic Eye exam: PRESENT: EOMI Ear exam: PRESENT: TM's normal bilaterally Mouth exam: PRESENT: dry mucosa Neck exam: PRESENT: full ROM Respiratory exam: PRESENT: clear to auscultation maria a Cardiovascular exam: PRESENT: RRR Pulses: PRESENT: normal radial pulses, normal femoral pulses GI/Abdominal exam: PRESENT: hypoactive bowel sounds, soft Rectal exam: PRESENT: deferred Extremities exam: PRESENT: full ROM Musculoskeletal exam: PRESENT: full ROM Neurological exam: PRESENT: alert, awake, oriented to person, oriented to place Psychiatric exam: PRESENT: appropriate affect Skin exam: PRESENT: dry Results Laboratory Results: 05/23/19 03:50 05/24/19 04:10 05/24/19 04:10 Sodium 133.1 L Potassium 3.6 Chloride 93 L Carbon Dioxide 36 H Anion Gap 4 L BUN 12 Creatinine 0.74 Est GFR ( Amer) > 60 Glucose 97 Calcium 8.8 Impressions: Abdomen/Pelvis CT 05/18/19 17:52 IMPRESSION: Small bowel obstruction with loops in the mid abdomen measuring 4.7 cm, transition point appears to be in the right mid abdomen. Moderate inflammatory changes - free fluid. KUB X-Ray 05/18/19 19:21 IMPRESSION: NG tube tip in the stomach. Chest X-Ray 05/19/19 13:12 IMPRESSION: 1. LIFE LINES APPEAR TO BE IN APPROPRIATE POSITION. 2. LINEAR ATELECTASIS AND/OR SCARRING IN THE LUNG BASES. CANNOT EXCLUDE EARLY PNEUMONIA IN THE LEFT LUNG BASE. Abdomen X-Ray 05/22/19 00:00 IMPRESSION: 1. Markedly distended small bowel loops in the upper abdomen. While this could reflect postoperative ileus, there is essentially no gas seen distally and persistent or recurrent small bowel obstruction is in the differential. Nasogastric tube appears to be appropriately located. Assessment & Plan - Diagnosis (2) Abdominal pain Qualifiers: Abdominal location: generalized Qualified Code(s): R10.84 - Generalized abdominal pain Is this a current diagnosis for this admission?: Yes - Plan Summary Plan Summary: pt improved passed small bm yesterday still iwth high ng op abd soft, wound clean, few bs labs reviewd, creat wnl plan ok for tx to floor per intensivisit will dc garcia cont ng suction.
--- NOTE | 2019-05-24 09:15 | PDOC PROGRESS REPORT ---
Subjective Progress Note for:: 05/24/19 Subjective:: The patient is POD #1. Her Bp tailed off during the night. Her urine output is a little low as well. 05/21 The patient was extubated yesterday. her resoiratory staus appears to be ok. The patient ahs sme residual abdominal pain. She will be out of bed today. Still has NGT in place 05/22 The patient looks ok overall. She did have some vomiting this AM Her NGT had been clamped but had to be placed on low suction. Her respiratopry status appears to be ok. Have cut down on her IV fluids at this point. Has about a 5 liter net positve balance the past 3 days. The patient did pass some flatus yesterday 05/23 The patient still has large drainage from her NGT , bilious. Abdomen remains somewhat distended. Vomited a couple pf times yesterday. the patient remains a little bit frustrated. 05/24 Patient overal feels better. Not passing too much gas from below. the outflow from her NGT has lessened. No nausea or vomiting. We are hopeful that this ileus resolves soon. otherwise thepatient may require a short run of TON. Reason For Visit: SMALL BOWEL OBSTRUCTION Physical Exam Vital Signs: Temp Pulse Resp BP Pulse Ox 98.0 F 71 14 104/57 L 94 05/24/19 08:00 05/24/19 08:14 05/24/19 08:14 05/24/19 08:00 05/24/19 08:14 Intake & Output 05/23/19 05/24/19 05/25/19 06:59 06:59 06:59 Intake Total 1460 3000 Output Total 8025 5565 665 Balance -1675 -1955 -665 Weight 96.1 kg 94 kg General appearance: PRESENT: no acute distress Eye exam: PRESENT: conjunctiva pink, EOMI, PERRLA Ear exam: PRESENT: normal external ear exam Mouth exam: PRESENT: moist Respiratory exam: PRESENT: clear to auscultation maria a. ABSENT: accessory muscle use, tachypnea Pulses: PRESENT: normal dorsalis pedis pul Vascular exam: PRESENT: normal capillary refill GI/Abdominal exam: PRESENT: normal bowel sounds Rectal exam: PRESENT: deferred. ABSENT: bloody stool Extremities exam: PRESENT: full ROM Neurological exam: PRESENT: alert, altered, awake Results Laboratory Results: 05/23/19 03:50 05/24/19 04:10 05/24/19 04:10 Sodium 133.1 L Potassium 3.6 Chloride 93 L Carbon Dioxide 36 H Anion Gap 4 L BUN 12 Creatinine 0.74 Est GFR ( Amer) > 60 Glucose 97 Calcium 8.8 Impressions: Abdomen/Pelvis CT 05/18/19 17:52 IMPRESSION: Small bowel obstruction with loops in the mid abdomen measuring 4.7 cm, transition point appears to be in the right mid abdomen. Moderate inflammatory changes - free fluid. KUB X-Ray 05/18/19 19:21 IMPRESSION: NG tube tip in the stomach. Chest X-Ray 05/19/19 13:12 IMPRESSION: 1. LIFE LINES APPEAR TO BE IN APPROPRIATE POSITION. 2. LINEAR ATELECTASIS AND/OR SCARRING IN THE LUNG BASES. CANNOT EXCLUDE EARLY PNEUMONIA IN THE LEFT LUNG BASE. Abdomen X-Ray 05/22/19 00:00 IMPRESSION: 1. Markedly distended small bowel loops in the upper abdomen. While this could reflect postoperative ileus, there is essentially no gas seen distally and persistent or recurrent small bowel obstruction is in the differential. Nasogastric tube appears to be appropriately located. Assessment & Plan - Diagnosis (1) COPD (chronic obstructive pulmonary disease) Qualifiers: Is this a current diagnosis for this admission?: Yes Plan: This patient has known COPD and has been on home . CXR looks clear with ET inplace. I am hoping we can wean the patient today 05/21 The patient was extubated yesterday. Does not appear short of breath. She si getting regualr HHN. No major complaints 05/24 her respiratory sstatus ahs been quite comfortable and stable. (2) Small bowel obstruction Is this a current diagnosis for this admission?: Yes Plan: 05/20 Patient is POD #1. Has been a little hypotensive. getting the 2nd of two boluses ansd will Increase maintainance fluids a s well. Wound is dry Defer to surgery 05/22 S/P resection of a small bowel for closed loop obstruction. Doing well. Does have NGT in place. Miniaml drainage. Abodomen is soft. 05/24 Defer decisionbaout NGT to surgery. Abdomen feels dsofter today. Abdomen remains pretty silent howver. (3) Acute and chronic respiratory failure ([id number]) Qualifiers: Respiratory failure complication: hypoxia Is this a current diagnosis for this admission?: Yes
[2019-05-24] MEDS: FAMOTIDINE INJ/PF 20 MG/2 ML SDV IV SCH ×2 (11:30→21:10)
[2019-05-24] MEDS: NICOTINE 14 MG/24 HR PATCH.TD24 TD SCH (11:30)
[2019-05-24] MEDS: CIPROFLOXACIN 400 MG/D5W RTU 400 MG/200 ML RTUPB IV SCH ×2 (11:30→21:07)
--- NOTE | 2019-05-24 14:17 | RADIOLOGY REPORT (SQ) ---
EXAM DESCRIPTION: U/S GUIDE FOR VASCULAR ACCESS COMPLETE DATE/TIME: 05/24/2019 2:06 pm REASON FOR STUDY: IV ACCESS FINDINGS: Please see combined report for performance of procedure and radiologic supervision and int erpretation. IMPRESSION: Please see combined report for performance of procedure and radiologic supervision and i nterpretation. Reading location - IP/workstation name: [email or web address]
--- NOTE | 2019-05-24 14:17 | RADIOLOGY REPORT (SQ) ---
EXAM DESCRIPTION: PICC INSERTION COMPLETED DATE/TIME: 05/24/2019 2:06 pm REASON FOR STUDY: IV access for TPN COMPARISON: None. FLUOROSCOPY TIME: None. 3 images saved to PACS. TECHNIQUE: Fluoroscopic and ultrasound guided PICC placement. LIMITATIONS: None. PROCEDURE: After written consent and assessment were obtained, the patient was brought into the fluo roscopy room and placed supine on the table. Ultrasound evaluation of potential access sites were per formed. After successfully identifying a patent left basilic vein, the left arm was prepped and drape d in a sterile fashion along with the ultrasound probe. The entry site was anesthetized with 1% lidoc oscar. A 21 gauge 7 cm needle was advanced through the skin and into the basilic vein under live ultra sound guidance. An ultrasound image was saved to PACS confirming access site. A .018 guide wire was then inserted through the needle and into the venous system. The needle was then removed and an 11 b lade scalpel was used to make a 1cm skin incision. A 5 fr peel-away sheath was advanced over the wir e and into the venous system. A measurement was then made using the existing wire and live fluoroscop ic guidance. The wire was then removed and trimmed. The PICC was advanced through the peel-away sheat h and into the venous system. The peel-away sheath was removed and the catheter was adhered to the pa tients arm with a stat lock. The catheter was then aspirated and flushed and a sterile bandage was pl aced over the access site. A fluoroscopic spot image was saved to PACS confirming the catheter tip w ithin the superior vena cava. IMPRESSION: SUCCESSFUL PLACEMENT OF A 5 FR DUAL LUMEN 38 CM PICC IN THE LEFT BASILIC VEIN. COMMENT: Patient medication list reviewed: Yes- Quality ID# 130:Eligible professional attests to doc umenting in the medical record they obtained, updated, or reviewed the patient's current medications. . Quality ID 145: Final reports for procedures using fluoroscopy that document radiation exposure delaney nory, or exposure time and number of fluorographic images (if radiation exposure indices are not avail able) Quality ID #76: The patient was prepped and draped using maximum sterile barrier technique including cap, mask, sterile gown, sterile gloves, a large sterile sheet, hand hygiene, and 2% Chlorhexidine fo r cutaneous antisepsis. When ultrasound is used, sterile ultrasound techniques are followed requiring sterile gel and sterile probes. TECHNICAL DOCUMENTATION: JOB ID: [id number] [employer]- All Rights Reserved Reading location - IP/workstation name: [email or web address]
[2019-05-24] MEDS: MORPHINE SULFATE 10 MG/ML INJ IV PRN ×2 (14:48→18:22)
[2019-05-24] MEDS ORDERED: DEXTROSE 50%-WATER SYRINGE 12.5 GM/25 ML DOSE IV PRN (15:00)
[2019-05-24] MEDS ORDERED: DEXTROSE 50%-WATER SYRINGE 25 GM/50 ML DOSE IV PRN (15:00)
[2019-05-24] MEDS ORDERED: GLUCAGON,HUMAN RECOMB 1 MG INJ IM PRN (15:00)
[2019-05-24] MEDS ORDERED: DEXTROSE 10%-WATER 1,000 ML IV PRN (15:00)
[2019-05-24] MEDS ORDERED: DEXTROSE 40% GEL 15 GM TUBE PO PRN (15:00)
[2019-05-24] MEDS ORDERED: NORMAL SALINE 10 ML SDV (AFTER EACH USE) IV PRN (15:00)
[2019-05-24] MEDS ORDERED: DEXTROSE 40% GEL 15 GM TUBE X 2 PO PRN (15:00)
[2019-05-24] MEDS: INSULIN REG, HUMAN 100 UNIT/ML 3 ML VIAL (PYX) SUBCUT SCH (18:02)
[2019-05-24] MEDS: AMINO ACIDS 5 %/DEXTROSE 20 % 1,000 ML IV PRN (18:51)
[2019-05-24] MEDS: NORMAL SALINE 10 ML SDV (SCHEDULED) IV SCH (21:10)
[2019-05-25] MEDS: INSULIN REG, HUMAN 100 UNIT/ML 3 ML VIAL (PYX) SUBCUT SCH ×4 (00:57→18:39)
[2019-05-25] MEDS: HEPARIN SOD (PORCINE) 5,000 UNIT/ML 1 ML VIAL SUBCUT SCH ×3 (06:09→21:41)
[2019-05-25 07:07] LABS: ALBUMIN 2.6 g/dL (3.5-5.0); ALKALINE PHOSPHATASE 51 U/L (38-126); ASPARTATE AMINO TRANSFERASE 20 U/L (14-36); BILIRUBIN,DIRECT 0.2 mg/dL (0.0-0.4); BILIRUBIN,TOTAL 0.3 mg/dL (0.2-1.3); BLOOD UREA NITROGEN 12 mg/dL (7-20); CALCIUM 8.2 mg/dL (8.4-10.2); GLUCOSE 110 mg/dL (75-110); PHOSPHORUS 3.4 mg/dL (2.5-4.5); POTASSIUM 3.2 mmol/L (3.6-5.0); TOTAL PROTEIN 4.7 g/dL (6.3-8.2)
[2019-05-25 07:12] LABS: ANION GAP 6 (5-19); CARBON DIOXIDE 38 mmol/L (22-30); CHLORIDE 89 mmol/L (98-107)
[2019-05-25 07:14] LABS: PREALBUMIN 12.1 mg/dL (17.6-36.0)
[2019-05-25] MEDS: IPRATROPIUM/ALBUTEROL 0.5-2.5 MG/3 ML AMPUL NEB SCH ×2 (08:10→20:13)
[2019-05-25 08:41] LABS: ABSOLUTE EOSINOPHILS # (AUTO) 0.1 10^3/uL (0.0-0.6); ABSOLUTE LYMPHOCYTES (AUTO) 1.2 10^3/uL (0.5-4.7); ABSOLUTE MONOCYTES (AUTO) 0.6 10^3/uL (0.1-1.4); ABSOLUTE NEUT (AUTO) 4.1 10^3/uL (1.7-8.2); BASOPHILS % (AUTO) 0.4 % (0-2); EOSINOPHILS % (AUTO) 2.2 % (0-6); HEMATOCRIT 31.9 % (36.0-47.0); HEMOGLOBIN 10.6 g/dL (12.0-15.5); LYMPHOCYTES % (AUTO) 20.5 % (13-45); MEAN CORPUSCULAR HEMOGLOBIN 31.6 pg (27.0-33.4); MEAN CORPUSCULAR HGB CONC 33.1 g/dL (32.0-36.0); MEAN CORPUSCULAR VOLUME 95 fl (80-97); MONOCYTES % (AUTO) 10.1 % (3-13); PLATELET COUNT 254 10^3/uL (150-450); RED BLOOD COUNT 3.34 10^6/uL (3.72-5.28); RED CELL DISTRIBUTION WIDTH 13.1 % (11.5-14.0); SEGMENTED NEUTROPHILS % (AUTO) 66.8 % (42-78); TOTAL CELLS COUNTED % (AUTO) 100 %; WHITE BLOOD COUNT 6.1 10^3/uL (4.0-10.5)
--- NOTE | 2019-05-25 08:54 | PDOC PROGRESS REPORT ---
Subjective Progress Note for:: 05/25/19 Subjective:: ICU progress note. Mrs. Espinal is a 73yo woman admitted on 05/18/19 with a small bowel obstruction. She underwent a small bowel resection on 05/19. She continues to have a large amount of NG drainage. She states she feels better this am. She states her abdominal distention is resolving. She had a PICC inserted on 05/24 and TPN was started. Reason For Visit: SMALL BOWEL OBSTRUCTION Physical Exam Vital Signs: Temp Pulse Resp BP Pulse Ox 98.8 F 72 19 99/52 L 94 05/25/19 07:10 05/25/19 08:13 05/25/19 08:23 05/25/19 08:23 05/25/19 08:23 Intake & Output 05/24/19 05/25/19 05/26/19 06:59 06:59 06:59 Intake Total 3000 1337 Output Total 4955 4615 Balance -5 -8 Weight 94 kg 95.8 kg General appearance: PRESENT: no acute distress, well-developed, well-nourished Head exam: PRESENT: atraumatic Cardiovascular exam: PRESENT: RRR Additional comments: mildly distenstion, soft, no rebound, no guarding, no tenderness GI/Abdominal exam: PRESENT: diminished bowel sounds, soft Additonal comments: Ext: no edema Results Laboratory Results: 05/25/19 06:40 05/25/19 05/25/19 05/25/19 05:48 06:40 06:40 Sodium Cancelled 132.8 L Potassium Cancelled 3.2 L Chloride Cancelled 89 L Carbon Dioxide Cancelled 38 H Anion Gap Cancelled 6 BUN Cancelled 12 Creatinine Cancelled 0.77 Est GFR ( Amer) Cancelled > 60 Est GFR (Non-Af Amer) Cancelled Glucose Cancelled 110 Calcium Cancelled 8.2 L Phosphorus Cancelled 3.4 Magnesium 2.0 Total Bilirubin Cancelled 0.3 AST Cancelled 20 Alkaline Phosphatase Cancelled 51 Total Protein Cancelled 4.7 L Albumin Cancelled 2.6 L Prealbumin Cancelled 12.1 L Impressions: Abdomen/Pelvis CT 05/18/19 17:52 IMPRESSION: Small bowel obstruction with loops in the mid abdomen measuring 4.7 cm, transition point appears to be in the right mid abdomen. Moderate inflammatory changes - free fluid. KUB X-Ray 05/18/19 19:21 IMPRESSION: NG tube tip in the stomach. Chest X-Ray 05/19/19 13:12 IMPRESSION: 1. LIFE LINES APPEAR TO BE IN APPROPRIATE POSITION. 2. LINEAR ATELECTASIS AND/OR SCARRING IN THE LUNG BASES. CANNOT EXCLUDE EARLY PNEUMONIA IN THE LEFT LUNG BASE. Abdomen X-Ray 05/22/19 00:00 IMPRESSION: 1. Markedly distended small bowel loops in the upper abdomen. While this could reflect postoperative ileus, there is essentially no gas seen distally and persistent or recurrent small bowel obstruction is in the differential. Nasogastric tube appears to be appropriately located. Interventional Vascular Procedure 05/24/19 00:00 IMPRESSION: Please see combined report for performance of procedure and radiologic supervision and interpretation. PICC Line Insertion 05/24/19 00:00 IMPRESSION: SUCCESSFUL PLACEMENT OF A 5 FR DUAL LUMEN 38 CM PICC IN THE LEFT BASILIC VEIN. Assessment & Plan - Diagnosis (2) COPD (chronic obstructive pulmonary disease) Qualifiers: Is this a current diagnosis for this admission?: Yes - Plan Summary Plan Summary: Mrs. Espinal is a 73 yo woman with a small bowel obstructio, s/p small bowel resection on 05/19/19. Plan: 1. Respiratory: stable on nasal cannula. Extubated post-op on 05/20 2. Pulmonary: COPD,stable 3. CV: heart rate and BP acceptable 4. Surgery: small bowel obstruction, s/p small bowel resection on 05/19. Still with large amount of NG outpt. Care per surgery 5. ID: Day 7 of cipro. Will d/c 6. Nutrition: NPO per surgery. Started on TPN yesterday 7. Endocrine: monitoring blood sugars 8. Prophylaxis: Sq heparin 9. PT consulted. OOB TC. Ambulate with assistance 10. Labs pending 11. Disposition: awaiting transfer out of ICU
[2019-05-25] MEDS: NICOTINE 14 MG/24 HR PATCH.TD24 TD SCH (10:23)
[2019-05-25] MEDS: POTASSIUM CHLORIDE 20 MEQ/50 ML RTU IV SCH ×2 (10:23→11:53)
[2019-05-25] MEDS: NORMAL SALINE 10 ML SDV (SCHEDULED) IV SCH ×2 (10:24→21:41)
--- NOTE | 2019-05-25 11:34 | PDOC PROGRESS REPORT ---
Subjective Progress Note for:: 05/25/19 Subjective:: Feels well. Not passing any flatus. Reason For Visit: SMALL BOWEL OBSTRUCTION Physical Exam Vital Signs: Temp Pulse Resp BP Pulse Ox 98.8 F 72 19 99/52 L 94 05/25/19 07:10 05/25/19 08:13 05/25/19 08:23 05/25/19 08:23 05/25/19 08:23 Intake & Output 05/24/19 05/25/19 05/26/19 06:59 06:59 06:59 Intake Total 3000 1337 Output Total 4955 4615 950 Balance -1955 -3278 -950 Weight 94 kg 95.8 kg General appearance: PRESENT: no acute distress, cooperative Respiratory exam: PRESENT: clear to auscultation maria a Cardiovascular exam: PRESENT: RRR GI/Abdominal exam: PRESENT: other - Soft, nondistended, minimal tenderness. Active bowel sounds. Results Laboratory Results: 05/25/19 08:15 05/25/19 06:40 05/25/19 05/25/19 05/25/19 05:48 06:40 06:40 WBC RBC Hgb Hct MCV MCH MCHC RDW Plt Count Seg Neutrophils % Sodium Cancelled 132.8 L Potassium Cancelled 3.2 L Chloride Cancelled 89 L Carbon Dioxide Cancelled 38 H Anion Gap Cancelled 6 BUN Cancelled 12 Creatinine Cancelled 0.77 Est GFR ( Amer) Cancelled > 60 Est GFR (Non-Af Amer) Cancelled Glucose Cancelled 110 Calcium Cancelled 8.2 L Phosphorus Cancelled 3.4 Magnesium 2.0 Total Bilirubin Cancelled 0.3 AST Cancelled 20 Alkaline Phosphatase Cancelled 51 Total Protein Cancelled 4.7 L Albumin Cancelled 2.6 L Prealbumin Cancelled 12.1 L 05/25/19 08:15 WBC 6.1 RBC 3.34 L Hgb 10.6 L Hct 31.9 L MCV 95 MCH 31.6 MCHC 33.1 RDW 13.1 Plt Count 254 Seg Neutrophils % 66.8 Sodium Potassium Chloride Carbon Dioxide Anion Gap BUN Creatinine Est GFR ( Amer) Est GFR (Non-Af Amer) Glucose Calcium Phosphorus Magnesium Total Bilirubin AST Alkaline Phosphatase Total Protein Albumin Prealbumin Impressions: Abdomen/Pelvis CT 05/18/19 17:52 IMPRESSION: Small bowel obstruction with loops in the mid abdomen measuring 4.7 cm, transition point appears to be in the right mid abdomen. Moderate inflammatory changes - free fluid. KUB X-Ray 05/18/19 19:21 IMPRESSION: NG tube tip in the stomach. Chest X-Ray 05/19/19 13:12 IMPRESSION: 1. LIFE LINES APPEAR TO BE IN APPROPRIATE POSITION. 2. LINEAR ATELECTASIS AND/OR SCARRING IN THE LUNG BASES. CANNOT EXCLUDE EARLY PNEUMONIA IN THE LEFT LUNG BASE. Abdomen X-Ray 05/22/19 00:00 IMPRESSION: 1. Markedly distended small bowel loops in the upper abdomen. While this could reflect postoperative ileus, there is essentially no gas seen distally and persistent or recurrent small bowel obstruction is in the differential. Nasogastric tube appears to be appropriately located. Interventional Vascular Procedure 05/24/19 00:00 IMPRESSION: Please see combined report for performance of procedure and radiologic supervision and interpretation. PICC Line Insertion 05/24/19 00:00 IMPRESSION: SUCCESSFUL PLACEMENT OF A 5 FR DUAL LUMEN 38 CM PICC IN THE LEFT BASILIC VEIN. Assessment & Plan - Diagnosis (1) Small bowel obstruction Is this a current diagnosis for this admission?: Yes Plan: Patient looks good but she does not have good bowel function yet. She has high NG output which I believe is mainly due to her clear liquid and ice intake despite having an NG. I will give her an IV fluid bolus to take away some of her thirst and I have have asked her to decrease her p.o. intake. Pending transferr to the floor.
[2019-05-25] MEDS: ONDANSETRON HCL INJ/PF 4 MG/2 ML SDV IV PRN ×2 (11:50→18:21)
[2019-05-25] MEDS ORDERED: NORMAL SALINE 1000 ML 1,000 ML IV PRN (12:44)
--- NOTE | 2019-05-25 16:04 | RADIOLOGY REPORT (SQ) ---
EXAM DESCRIPTION: KUB/ABDOMEN (SINGLE VIEW) COMPLETED DATE/TIME: 05/25/2019 3:49 pm REASON FOR STUDY: NGtube placement and increased NG tube output COMPARISON: None. NUMBER OF VIEWS: One view. TECHNIQUE: Supine radiographic image of the abdomen acquired. LIMITATIONS: None. FINDINGS: BOWEL GAS PATTERN: Dilated gas-filled loops of bowel persist. CALCIFICATIONS: No suspicious calcifications. SOFT TISSUES: No gross mass or suggestion of organomegaly. HARDWARE: An NG tube extends to the gastric antrum. Skin frandy. BONES: No acute fracture. No worrisome bone lesions. OTHER: No other significant finding. IMPRESSION: Possible persistent ileus. NG tube placement as described. TECHNICAL DOCUMENTATION: JOB ID: [id number] [employer]- All Rights Reserved Reading location - IP/workstation name: [email or web address]
[2019-05-25 16:29] LABS: BLOOD UREA NITROGEN 11 mg/dL (7-20); CALCIUM 8.4 mg/dL (8.4-10.2); GLUCOSE 112 mg/dL (75-110); POTASSIUM 3.7 mmol/L (3.6-5.0)
[2019-05-25 16:36] LABS: CHLORIDE 91 mmol/L (98-107)
[2019-05-25 16:44] LABS: ANION GAP 3 (5-19)
[2019-05-25 16:46] LABS: CARBON DIOXIDE 40 mmol/L (22-30)
[2019-05-25] MEDS ORDERED: NORMAL SALINE 1000 ML 1,000 ML IV ONE (17:00)
[2019-05-25] MEDS: TAMSULOSIN HCL 0.4 MG CAP.SR.24H PO SCH (17:06)
--- NOTE | 2019-05-25 19:00 | RADIOLOGY REPORT (SQ) ---
EXAM DESCRIPTION: KUB/ABDOMEN (SINGLE VIEW) COMPLETED DATE/TIME: 05/25/2019 6:47 pm REASON FOR STUDY: NG tube replacement and abdominal view COMPARISON: 05/25/2019 1530 hours NUMBER OF VIEWS: One view. TECHNIQUE: Supine radiographic image of the abdomen acquired. LIMITATIONS: None. FINDINGS: BOWEL GAS PATTERN: Dilated small bowel loops. CALCIFICATIONS: No suspicious calcifications. SOFT TISSUES: No gross mass or suggestion of organomegaly. HARDWARE: Nasogastric tube tip is in the antrum of the stomach. Multiple surgical frandy. BONES: No acute fracture. No worrisome bone lesions. OTHER: No other significant finding. IMPRESSION: NG tube tip is in the antrum of the stomach. Multiple dilated small bowel loops unchanged. TECHNICAL DOCUMENTATION: JOB ID: [id number] [employer]- All Rights Reserved Reading location - IP/workstation name: [email or web address]
[2019-05-25] MEDS: NORMAL SALINE 1000 ML 1,000 ML IV PRN (19:18)
--- NOTE | 2019-05-25 19:56 | RADIOLOGY REPORT (SQ) ---
EXAM DESCRIPTION: KUB/ABDOMEN (SINGLE VIEW) COMPLETED DATE/TIME: 05/25/2019 7:49 pm REASON FOR STUDY: recheck placement of NG tube COMPARISON: None. NUMBER OF VIEWS: One view. TECHNIQUE: Supine radiographic image of the abdomen acquired. LIMITATIONS: None. FINDINGS: BOWEL GAS PATTERN: Findings of small bowel obstruction. Stable. CALCIFICATIONS: No suspicious calcifications. SOFT TISSUES: No gross mass or suggestion of organomegaly. HARDWARE: Abdifatah. Nasogastric tube is now in the fundus of the stomach. Has been pole back. BONES: No acute fracture. No worrisome bone lesions. OTHER: No other significant finding. IMPRESSION: Nasogastric tube tip is now in the the fundus of the stomach. It has been pulled back. Small bowel obstruction. TECHNICAL DOCUMENTATION: JOB ID: [id number] [employer]- All Rights Reserved Reading location - IP/workstation name: [email or web address]
[2019-05-25] MEDS: MORPHINE SULFATE 10 MG/ML INJ IV PRN (21:41)
[2019-05-25] MEDS: AMINO ACIDS 5 %/DEXTROSE 20 % 1,000 ML IV PRN (21:42)
--- NOTE | 2019-05-25 22:52 | PDOC PROGRESS REPORT ---
Subjective Progress Note for:: 05/25/19 Reason For Visit: SMALL BOWEL OBSTRUCTION Physical Exam Vital Signs: Temp Pulse Resp BP Pulse Ox 99.2 F 74 22 H 107/52 L 93 05/25/19 20:00 05/25/19 20:00 05/25/19 20:00 05/25/19 19:22 05/25/19 20:00 Intake & Output 05/24/19 05/25/19 05/26/19 06:59 06:59 06:59 Intake Total 3000 1337 2088 Output Total 4951 4614 5350 Balance -3734 -1076 -7362 Weight 94 kg 95.8 kg Results Laboratory Results: 05/25/19 08:15 05/25/19 15:45 05/25/19 05/25/19 05/25/19 05:48 06:40 06:40 WBC RBC Hgb Hct MCV MCH MCHC RDW Plt Count Seg Neutrophils % Sodium Cancelled 132.8 L Potassium Cancelled 3.2 L Chloride Cancelled 89 L Carbon Dioxide Cancelled 38 H Anion Gap Cancelled 6 BUN Cancelled 12 Creatinine Cancelled 0.77 Est GFR ( Amer) Cancelled > 60 Est GFR (Non-Af Amer) Cancelled Glucose Cancelled 110 Calcium Cancelled 8.2 L Phosphorus Cancelled 3.4 Magnesium 2.0 Total Bilirubin Cancelled 0.3 AST Cancelled 20 Alkaline Phosphatase Cancelled 51 Total Protein Cancelled 4.7 L Albumin Cancelled 2.6 L Prealbumin Cancelled 12.1 L 05/25/19 05/25/19 08:15 15:45 WBC 6.1 RBC 3.34 L Hgb 10.6 L Hct 31.9 L MCV 95 MCH 31.6 MCHC 33.1 RDW 13.1 Plt Count 254 Seg Neutrophils % 66.8 Sodium 133.8 L Potassium 3.7 Chloride 91 L Carbon Dioxide 40 H* Anion Gap 3 L BUN 11 Creatinine 0.71 Est GFR ( Amer) > 60 Est GFR (Non-Af Amer) Glucose 112 H Calcium 8.4 Phosphorus Magnesium Total Bilirubin AST Alkaline Phosphatase Total Protein Albumin Prealbumin Impressions: Abdomen/Pelvis CT 05/18/19 17:52 IMPRESSION: Small bowel obstruction with loops in the mid abdomen measuring 4.7 cm, transition point appears to be in the right mid abdomen. Moderate inflammatory changes - free fluid. Chest X-Ray 05/19/19 13:12 IMPRESSION: 1. LIFE LINES APPEAR TO BE IN APPROPRIATE POSITION. 2. LINEAR ATELECTASIS AND/OR SCARRING IN THE LUNG BASES. CANNOT EXCLUDE EARLY PNEUMONIA IN THE LEFT LUNG BASE. Abdomen X-Ray 05/22/19 00:00 IMPRESSION: 1. Markedly distended small bowel loops in the upper abdomen. While this could reflect postoperative ileus, there is essentially no gas seen distally and persistent or recurrent small bowel obstruction is in the differential. Nasogas tric tube appears to be appropriately located. Interventional Vascular Procedure 05/24/19 00:00 IMPRESSION: Please see combined report for performance of procedure and r adiologic supervision and interpretation. PICC Line Insertion 05/24/19 00:00 IMPRESSION: SUCCESSFUL PLACEMENT OF A 5 FR DUAL LUMEN 38 CM PICC IN THE LEFT BASILIC VEIN. KUB X-Ray 05/25/19 15:05 IMPRESSION: Possible persistent ileus. NG tube placement as described. Assessment & Plan - Diagnosis (1) Small bowel obstruction Is this a current diagnosis for this admission?: Yes Plan: Patient noted with high NG output and review of her KUB demonstrates the NG tube crossing the midline consistent with NG tube being in the duodenum rather than in the stomach. Radiology reports did not mention the tip crossing the midline although clearly it is on the film. Therefore the NG tube has been pulled back into the stomach. We will also place patient on maintenance IV fluids in addition to her TPN. I have also given her fluid boluses as well in light of the high enteric tube output. Abdominal films does demonstrate persistent small bowel distention and if it persists despite electrolyte correction, will obtain a abdominal pelvic CT scan.
[2019-05-26] MEDS: INSULIN REG, HUMAN 100 UNIT/ML 3 ML VIAL (PYX) SUBCUT SCH ×4 (00:03→18:16)
[2019-05-26] MEDS ORDERED: PANTOPRAZOLE SODIUM 40 MG VIAL IV ONE (01:15)
[2019-05-26] MEDS ORDERED: KETOROLAC TROMETHAMINE INJ/PF 30 MG/1 ML SDV IV ONE ×2 (01:19→01:30)
[2019-05-26] MEDS: NORMAL SALINE 1000 ML 1,000 ML IV PRN ×3 (03:30→18:27)
[2019-05-26] MEDS: HEPARIN SOD (PORCINE) 5,000 UNIT/ML 1 ML VIAL SUBCUT SCH ×3 (05:18→21:28)
[2019-05-26 05:59] LABS: ALBUMIN 2.5 g/dL (3.5-5.0); ALKALINE PHOSPHATASE 45 U/L (38-126); ASPARTATE AMINO TRANSFERASE 19 U/L (14-36); BILIRUBIN,DIRECT 0.1 mg/dL (0.0-0.4); BILIRUBIN,TOTAL 0.3 mg/dL (0.2-1.3); BLOOD UREA NITROGEN 15 mg/dL (7-20); CARBON DIOXIDE 39 mmol/L (22-30); CHLORIDE 94 mmol/L (98-107); GLUCOSE 112 mg/dL (75-110); PHOSPHORUS 3.5 mg/dL (2.5-4.5); POTASSIUM 3.3 mmol/L (3.6-5.0); TOTAL PROTEIN 4.8 g/dL (6.3-8.2)
[2019-05-26 06:06] LABS: PREALBUMIN 11.1 mg/dL (17.6-36.0)
[2019-05-26 06:07] LABS: ANION GAP 3 (5-19)
[2019-05-26] MEDS: IPRATROPIUM/ALBUTEROL 0.5-2.5 MG/3 ML AMPUL NEB SCH ×2 (08:09→20:43)
--- NOTE | 2019-05-26 09:22 | PDOC PROGRESS REPORT ---
Subjective Progress Note for:: 05/26/19 Subjective:: Pt states she feels better today. Does continue to have large amount of NGT outpt. Reason For Visit: SMALL BOWEL OBSTRUCTION Physical Exam Vital Signs: Temp Pulse Resp BP Pulse Ox 97.6 F 61 13 94/50 L 98 05/26/19 07:21 05/26/19 07:21 05/26/19 07:21 05/26/19 07:21 05/26/19 07:21 Intake & Output 05/25/19 05/26/19 05/27/19 06:59 06:59 06:59 Intake Total 1337 3072 Output Total 4615 6450 Balance -6614 -1293 Weight 95.8 kg 96.1 kg General appearance: PRESENT: no acute distress, well-developed, well-nourished Head exam: PRESENT: atraumatic, normocephalic Cardiovascular exam: PRESENT: RRR Additonal comments: soft, NTND, midline incision CDI. No rebound, no guarding. Neurological exam: PRESENT: alert, awake Additional comments: Ext: no edema Results Laboratory Results: 05/25/19 08:15 05/26/19 05:25 05/25/19 05/26/19 15:45 05:25 Sodium 133.8 L 135.8 L Potassium 3.7 3.3 L Chloride 91 L 94 L Carbon Dioxide 40 H* 39 H Anion Gap 3 L 3 L BUN 11 15 Creatinine 0.71 0.61 Est GFR ( Amer) > 60 > 60 Glucose 112 H 112 H Calcium 8.4 8.0 L Phosphorus 3.5 Total Bilirubin 0.3 AST 19 Alkaline Phosphatase 45 Total Protein 4.8 L Albumin 2.5 L Prealbumin 11.1 L Impressions: Abdomen/Pelvis CT 05/18/19 17:52 IMPRESSION: Small bowel obstruction with loops in the mid abdomen measuring 4.7 cm, transition point appears to be in the right mid abdomen. Moderate inflammatory changes - free fluid. Chest X-Ray 05/19/19 13:12 IMPRESSION: 1. LIFE LINES APPEAR TO BE IN APPROPRIATE POSITION. 2. LINEAR ATELECTASIS AND/OR SCARRING IN THE LUNG BASES. CANNOT EXCLUDE EARLY PNEUMONIA IN THE LEFT LUNG BASE. Abdomen X-Ray 05/22/19 00:00 IMPRESSION: 1. Markedly distended small bowel loops in the upper abdomen. While this could reflect postoperative ileus, there is essentially no gas seen distally and persistent or recurrent small bowel obstruction is in the differential. Nasogastric tube appears to be appropriately located. Interventional Vascular Procedure 05/24/19 00:00 IMPRESSION: Please see combined report for performance of procedure and radiologic supervision and interpretation. PICC Line Insertion 05/24/19 00:00 IMPRESSION: SUCCESSFUL PLACEMENT OF A 5 FR DUAL LUMEN 38 CM PICC IN THE LEFT BASILIC VEIN. KUB X-Ray 05/25/19 15:05 IMPRESSION: Possible persistent ileus. NG tube placement as described. Assessment & Plan - Diagnosis (2) COPD (chronic obstructive pulmonary disease) Qualifiers: Is this a current diagnosis for this admission?: Yes - Plan Summary Plan Summary: Mrs. Espinal is a 73 yo woman with a small bowel obstruction, s/p small bowel resection on 05/19/19. Plan: 1. Respiratory: stable on nasal cannula. Extubated post-op on 05/20 2. Pulmonary: COPD,stable 3. CV: heart rate and BP acceptable. Continue IVF. 4. Surgery: small bowel obstruction, s/p small bowel resection on 05/19. Still with large amount of NG outpt. NGT adjusted. IVF started. Care per surgery. 5. ID: [email or web address] stopped yesterday 6. Nutrition: NPO per surgery. Continue TPN 7. Endocrine: monitoring blood sugars 8. Prophylaxis: Sq heparin 9. PT consulted. OOB TC. Ambulate with assistance 10. Labs pending 11. Disposition: awaiting transfer out of ICU
[2019-05-26] MEDS ORDERED: POTASSIUM CHLORIDE 20 MEQ/50 ML RTU IV ONE (10:00)
[2019-05-26] MEDS ORDERED: FAT EMULSIONS 250 ML IV SCH (10:00)
--- NOTE | 2019-05-26 10:20 | PDOC PROGRESS REPORT ---
Subjective Progress Note for:: 05/26/19 Subjective:: Denies any pains No flatus yet Reason For Visit: SMALL BOWEL OBSTRUCTION Physical Exam Vital Signs: Temp Pulse Resp BP Pulse Ox 97.6 F 60 18 113/75 95 05/26/19 07:21 05/26/19 09:50 05/26/19 09:23 05/26/19 09:23 05/26/19 09:23 Intake & Output 05/25/19 05/26/19 05/27/19 06:59 06:59 06:59 Intake Total 1337 3072 Output Total 4615 6450 Balance -3872 -0502 Weight 95.8 kg 96.1 kg Exam: NGT pulled back by Dr Villarreal yesterday and since then NGT appears to be draining less Abd is soft and non tender Results Laboratory Results: 05/25/19 08:15 05/26/19 05:25 05/25/19 05/26/19 15:45 05:25 Sodium 133.8 L 135.8 L Potassium 3.7 3.3 L Chloride 91 L 94 L Carbon Dioxide 40 H* 39 H Anion Gap 3 L 3 L BUN 11 15 Creatinine 0.71 0.61 Est GFR ( Amer) > 60 > 60 Glucose 112 H 112 H Calcium 8.4 8.0 L Phosphorus 3.5 Total Bilirubin 0.3 AST 19 Alkaline Phosphatase 45 Total Protein 4.8 L Albumin 2.5 L Prealbumin 11.1 L Impressions: Abdomen/Pelvis CT 05/18/19 17:52 IMPRESSION: Small bowel obstruction with loops in the mid abdomen measuring 4.7 cm, transition point appears to be in the right mid abdomen. Moderate inflammatory changes - free fluid. Chest X-Ray 05/19/19 13:12 IMPRESSION: 1. LIFE LINES APPEAR TO BE IN APPROPRIATE POSITION. 2. LINEAR ATELECTASIS AND/OR SCARRING IN THE LUNG BASES. CANNOT EXCLUDE EARLY PNEUMONIA IN THE LEFT LUNG BASE. Abdomen X-Ray 05/22/19 00:00 IMPRESSION: 1. Markedly distended small bowel loops in the upper abdomen. While this could reflect postoperative ileus, there is essentially no gas seen distally and persistent or recurrent small bowel obstruction is in the differential. Nasogastric tube appears to be appropriately located. Interventional Vascular Procedure 05/24/19 00:00 IMPRESSION: Please see combined report for performance of procedure and radiologic supervision and interpretation. PICC Line Insertion 05/24/19 00:00 IMPRESSION: SUCCESSFUL PLACEMENT OF A 5 FR DUAL LUMEN 38 CM PICC IN THE LEFT BASILIC VEIN. KUB X-Ray 05/25/19 15:05 IMPRESSION: Possible persistent ileus. NG tube placement as described. Assessment & Plan - Diagnosis (1) Small bowel strangulated hernia Is this a current diagnosis for this admission?: Yes - Time Time Spent with patient: 15-24 minutes - Inpatient Certification Medical Necessity: Need Close Monitoring Due to Risk of Patient Decompensation, Need For IV Fluids - Plan Summary Plan Summary: Continue NGT,TPN If not opened up next 24-48 hrs will obtain contrast study
[2019-05-26] MEDS: POTASSIUM CHLORIDE 20 MEQ/50 ML RTU IV SCH ×4 (10:23→22:05)
[2019-05-26] MEDS: NICOTINE 14 MG/24 HR PATCH.TD24 TD SCH (10:23)
[2019-05-26] MEDS: NORMAL SALINE 10 ML SDV (SCHEDULED) IV SCH ×2 (10:23→21:28)
[2019-05-26] MEDS: TAMSULOSIN HCL 0.4 MG CAP.SR.24H PO SCH (10:23)
[2019-05-26] MEDS: PANTOPRAZOLE SODIUM 40 MG VIAL IV SCH ×2 (10:24→21:27)
[2019-05-26 11:35] LABS: ABSOLUTE BASOPHILS # (AUTO) 0.1 10^3/uL (0.0-0.2); ABSOLUTE EOSINOPHILS # (AUTO) 0.2 10^3/uL (0.0-0.6); ABSOLUTE LYMPHOCYTES (AUTO) 1.6 10^3/uL (0.5-4.7); ABSOLUTE MONOCYTES (AUTO) 0.9 10^3/uL (0.1-1.4); ABSOLUTE NEUT (AUTO) 7.6 10^3/uL (1.7-8.2); BASOPHILS % (AUTO) 0.5 % (0-2); EOSINOPHILS % (AUTO) 1.5 % (0-6); HEMATOCRIT 31.5 % (36.0-47.0); HEMOGLOBIN 10.8 g/dL (12.0-15.5); LYMPHOCYTES % (AUTO) 15.6 % (13-45); MEAN CORPUSCULAR HEMOGLOBIN 31.8 pg (27.0-33.4); MEAN CORPUSCULAR HGB CONC 34.4 g/dL (32.0-36.0); MEAN CORPUSCULAR VOLUME 92 fl (80-97); MONOCYTES % (AUTO) 8.5 % (3-13); PLATELET COUNT 301 10^3/uL (150-450); RED BLOOD COUNT 3.41 10^6/uL (3.72-5.28); RED CELL DISTRIBUTION WIDTH 13.4 % (11.5-14.0); SEGMENTED NEUTROPHILS % (AUTO) 73.9 % (42-78); TOTAL CELLS COUNTED % (AUTO) 100 %; WHITE BLOOD COUNT 10.3 10^3/uL (4.0-10.5)
[2019-05-26] MEDS: MORPHINE SULFATE 10 MG/ML INJ IV PRN (13:30)
[2019-05-26] MEDS: AMINO ACIDS 5 %/DEXTROSE 20 % 1,000 ML IV PRN (18:35)
[2019-05-27] MEDS: INSULIN REG, HUMAN 100 UNIT/ML 3 ML VIAL (PYX) SUBCUT SCH ×4 (00:44→17:11)
[2019-05-27] MEDS: NORMAL SALINE 1000 ML 1,000 ML IV PRN ×3 (02:55→21:13)
[2019-05-27 05:54] LABS: PHOSPHORUS 4.5 mg/dL (2.5-4.5)
[2019-05-27] MEDS: HEPARIN SOD (PORCINE) 5,000 UNIT/ML 1 ML VIAL SUBCUT SCH ×3 (05:59→21:10)
[2019-05-27 06:01] LABS: PREALBUMIN 9.5 mg/dL (17.6-36.0)
--- NOTE | 2019-05-27 08:01 | PDOC PROGRESS REPORT ---
Subjective Progress Note for:: 05/27/19 Reason For Visit: SMALL BOWEL OBSTRUCTION Physical Exam Vital Signs: Temp Pulse Resp BP Pulse Ox 98.1 F 71 17 104/60 97 05/27/19 03:28 05/26/19 20:44 05/27/19 04:08 05/27/19 04:08 05/27/19 04:08 Intake & Output 05/26/19 05/27/19 05/28/19 06:59 06:59 06:59 Intake Total 3072 3244 Output Total 6412 6840 Balance -3378 794 Weight 96.1 kg 94.8 kg General appearance: PRESENT: no acute distress Head exam: PRESENT: normocephalic Eye exam: PRESENT: EOMI Ear exam: PRESENT: TM's normal bilaterally Mouth exam: PRESENT: moist Neck exam: PRESENT: full ROM Respiratory exam: PRESENT: clear to auscultation maria a Cardiovascular exam: PRESENT: RRR Pulses: PRESENT: normal radial pulses, normal femoral pulses GI/Abdominal exam: PRESENT: soft - wound clean dry frandy intact Rectal exam: PRESENT: deferred Extremities exam: PRESENT: full ROM Musculoskeletal exam: PRESENT: full ROM Neurological exam: PRESENT: alert, awake, oriented to person, oriented to place Psychiatric exam: PRESENT: appropriate affect Skin exam: PRESENT: dry Results Laboratory Results: 05/26/19 11:20 05/26/19 05/26/19 05/27/19 11:20 17:15 05:10 WBC 10.3 RBC 3.41 L Hgb 10.8 L Hct 31.5 L MCV 92 MCH 31.8 MCHC 34.4 RDW 13.4 Plt Count 301 Seg Neutrophils % 73.9 Sodium Potassium 3.4 L Chloride Carbon Dioxide Anion Gap BUN Creatinine Est GFR ( Amer) Est GFR (Non-Af Amer) Glucose Calcium Phosphorus 4.5 Prealbumin 9.5 L 05/27/19 05:10 WBC RBC Hgb Hct MCV MCH MCHC RDW Plt Count Seg Neutrophils % Sodium Cancelled Potassium Cancelled Chloride Cancelled Carbon Dioxide Cancelled Anion Gap Cancelled BUN Cancelled Creatinine Cancelled Est GFR ( Amer) Cancelled Est GFR (Non-Af Amer) Cancelled Glucose Cancelled Calcium Cancelled Phosphorus Prealbumin Impressions: Abdomen/Pelvis CT 05/18/19 17:52 IMPRESSION: Small bowel obstruction with loops in the mid abdomen measuring 4.7 cm, transition point appears to be in the right mid abdomen. Moderate inflammatory changes - free fluid. Chest X-Ray 05/19/19 13:12 IMPRESSION: 1. LIFE LINES APPEAR TO BE IN APPROPRIATE POSITION. 2. LINEAR ATELECTASIS AND/OR SCARRING IN THE LUNG BASES. CANNOT EXCLUDE EARLY PNEUMONIA IN THE LEFT LUNG BASE. Abdomen X-Ray 05/22/19 00:00 IMPRESSION: 1. Markedly distended small bowel loops in the upper abdomen. While this could reflect postoperative ileus, there is essentially no gas seen distally and persistent or recurrent small bowel obstruction is in the differential. Nasogastric tube appears to be appropriately located. Interventional Vascular Procedure 05/24/19 00:00 IMPRESSION: Please see combined report for performance of procedure and radiologic supervision and interpretation. PICC Line Insertion 05/24/19 00:00 IMPRESSION: SUCCESSFUL PLACEMENT OF A 5 FR DUAL LUMEN 38 CM PICC IN THE LEFT BASILIC VEIN. KUB X-Ray 05/25/19 15:05 IMPRESSION: Possible persistent ileus. NG tube placement as described. Assessment & Plan - Diagnosis (2) Abdominal pain Qualifiers: Abdominal location: generalized Qualified Code(s): R10.84 - Generalized abdominal pain Is this a current diagnosis for this admission?: Yes - Plan Summary Plan Summary: doing well decreased ng op since pulling back ng tube still with no flatus abd soft, non tender will try dulcolax today cont to wait on return of bowel function.
[2019-05-27 08:02] LABS: ANION GAP 6 (5-19); BLOOD UREA NITROGEN 13 mg/dL (7-20); CALCIUM 7.9 mg/dL (8.4-10.2); CARBON DIOXIDE 28 mmol/L (22-30); CHLORIDE 102 mmol/L (98-107); GLUCOSE 97 mg/dL (75-110); POTASSIUM 3.8 mmol/L (3.6-5.0)
[2019-05-27] MEDS: IPRATROPIUM/ALBUTEROL 0.5-2.5 MG/3 ML AMPUL NEB SCH ×2 (08:26→19:41)
[2019-05-27] MEDS ORDERED: BISACODYL 10 MG SUPP.RECT PR ONE (08:30)
--- NOTE | 2019-05-27 09:19 | PDOC PROGRESS REPORT ---
Subjective Progress Note for:: 05/27/19 Subjective:: Pt continues to improve. States she feels better. Worked with PT yesterday. Reason For Visit: SMALL BOWEL OBSTRUCTION Physical Exam Vital Signs: Temp Pulse Resp BP Pulse Ox 98.4 F 69 19 118/61 94 05/27/19 07:59 05/27/19 07:59 05/27/19 08:07 05/27/19 08:07 05/27/19 08:07 Intake & Output 05/26/19 05/27/19 05/28/19 06:59 06:59 06:59 Intake Total 3072 3244 Output Total 6450 2450 Balance -3378 794 Weight 96.1 kg 94.8 kg General appearance: PRESENT: no acute distress, well-developed, well-nourished Head exam: PRESENT: atraumatic, normocephalic Respiratory exam: PRESENT: clear to auscultation maria a, unlabored Cardiovascular exam: PRESENT: RRR GI/Abdominal exam: PRESENT: soft Additonal comments: soft, NTND, no rebound, no guarding Additional comments: no edema Results Laboratory Results: 05/26/19 11:20 05/27/19 07:30 05/26/19 05/26/19 05/27/19 11:20 17:15 05:10 WBC 10.3 RBC 3.41 L Hgb 10.8 L Hct 31.5 L MCV 92 MCH 31.8 MCHC 34.4 RDW 13.4 Plt Count 301 Seg Neutrophils % 73.9 Sodium Potassium 3.4 L Chloride Carbon Dioxide Anion Gap BUN Creatinine Est GFR ( Amer) Est GFR (Non-Af Amer) Glucose Calcium Phosphorus 4.5 Prealbumin 9.5 L 05/27/19 05/27/19 05:10 07:30 WBC RBC Hgb Hct MCV MCH MCHC RDW Plt Count Seg Neutrophils % Sodium Cancelled 136.3 L Potassium Cancelled 3.8 Chloride Cancelled 102 Carbon Dioxide Cancelled 28 Anion Gap Cancelled 6 BUN Cancelled 13 Creatinine Cancelled 0.54 Est GFR ( Amer) Cancelled > 60 Est GFR (Non-Af Amer) Cancelled Glucose Cancelled 97 Calcium Cancelled 7.9 L Phosphorus Prealbumin Impressions: Abdomen/Pelvis CT 05/18/19 17:52 IMPRESSION: Small bowel obstruction with loops in the mid abdomen measuring 4.7 cm, transition point appears to be in the right mid abdomen. Moderate inflammatory changes - free fluid. Chest X-Ray 05/19/19 13:12 IMPRESSION: 1. LIFE LINES APPEAR TO BE IN APPROPRIATE POSITION. 2. LINEAR ATELECTASIS AND/OR SCARRING IN THE LUNG BASES. CANNOT EXCLUDE EARLY PNEUMONIA IN THE LEFT LUNG BASE. Abdomen X-Ray 05/22/19 00:00 IMPRESSION: 1. Markedly distended small bowel loops in the upper abdomen. While this could reflect postoperative ileus, there is essentially no gas seen distally and pers istent or recurrent small bowel obstruction is in the differential. Nasogastric tube appears to be appropriately located. Interventional Vascular Procedure 05/24/19 00:00 IMPRESSION: Please see combined report for performance of procedure and radiologic supervision and interpretation. PICC Line Insertion 05/24/19 00:00 IMPRESSION: SUCCESSFUL PLACEMENT OF A 5 FR DUAL LUMEN 38 CM PICC IN THE LEFT BASILIC VEIN. KUB X-Ray 05/25/19 15:05 IMPRESSION: Possible persistent ileus. NG tube placement as described. Assessment & Plan - Diagnosis (2) COPD (chronic obstructive pulmonary disease) Qualifiers: Is this a current diagnosis for this admission?: Yes - Plan Summary Plan Summary: Mrs. Espinal is a 73 yo woman with a small bowel obstruction, s/p small bowel resection on 05/19/19. Plan: 1. Respiratory: stable on nasal cannula. 2. Pulmonary: COPD,stable 3. CV: heart rate and BP acceptable. Continue IVF. 4. Surgery: small bowel obstruction, s/p small bowel resection on 05/19. Decreasing NGT output. Care per surgery. 5. Nutrition: NPO per surgery. Continue TPN 6. Endocrine: monitoring blood sugars 7. Prophylaxis: Sq heparin 8. Disposition: awaiting transfer out of ICU
[2019-05-27] MEDS: NICOTINE 14 MG/24 HR PATCH.TD24 TD SCH (10:03)
[2019-05-27] MEDS: TAMSULOSIN HCL 0.4 MG CAP.SR.24H PO SCH (10:03)
[2019-05-27] MEDS: PANTOPRAZOLE SODIUM 40 MG VIAL IV SCH ×2 (10:04→21:09)
[2019-05-27] MEDS: NORMAL SALINE 10 ML SDV (SCHEDULED) IV SCH ×2 (10:14→21:11)
--- NOTE | 2019-05-27 11:34 | Progress Note ---
Provider Note Provider Note: Transfer Note. Pt is a 73 yo woman with COPD, HTN who was admitted on 05/18 for a small bowel obstruction. She underwent a small bowel resection on 05/19 and was admitted to the ICU post-operatively. Post-op course complicated by a prolonged ileus. She had a copius amount of output from her NGT. She was started on IVF and TPN. Today, her NGT outpt is decreasing and pt has had a bowel movement. SHe is stable for transfer out of the ICU. Dr. Barrett has been called and the hospitalist service will continue to see the pt for medical management. Please refer to today's progress note for further details.
[2019-05-27] MEDS: AMINO ACIDS 5 %/DEXTROSE 20 % 1,000 ML IV PRN (12:41)
--- NOTE | 2019-05-27 13:04 | PDOC CONSULTATION ---
Consultation Consult Date: 05/27/19 Attending physician:: JERMAINE SYKES Provider Consulted: PHIL URENA Consult reason:: Medical management status post small bowel resection History of Present Illness Admission Date/PCP: 05/18/19 19:27 Patient complains of: None at this time History of Present Illness: JOHAN WREN is a 73 year old female who presented on 05/18/2019 with complaints of abdominal pain, nausea vomiting and diarrhea. She states that since the morning of the 911 at 1030 she suddenly began to experience pain in epigastric region which soon after moved down into her lower abdomen bilaterally radiating to the back and flank region bilaterally. She says she vomited 5 times had about 3 episodes of diarrhea. No blood was noted in either the vomitus or diarrhea. She states she had some pain similar to what she was currently having when she had a kidney and a bladder infection previously. She has had surgery for colon cancer and vulvar cancer in 2008 of breast cancer in the 70s. She was transferred from the ICU to medical surgical today and we were asked to consult. Past Medical History Cardiac Medical History: Reports: Coronary Artery Disease, Hypertension Denies: Myocardial Infarction Pulmonary Medical History: Reports: Asthma - on home nebs & O2 3-3.5 , Bronchitis, Chronic Obstructive Pulmonary Disease (COPD) - On home oxygen at 3 L all the time., Respiratory Failure - Chronic hypoxemic on home oxygen, Sleep Apnea - On CPAP Denies: Pneumonia Neurological Medical History: Denies: Seizures Endocrine Medical History: Reports: Hypothyroidism, Obesity Malignancy Medical History: Reports: Breast Cancer, Colorectal Cancer GI Medical History: Reports: Other - Umbilical hernia Denies: Hepatitis, Hiatal Hernia Musculoskeltal Medical History: Reports: Arthritis - generalized Psychiatric Medical History: Reports: Depression Hematology: Denies: Anemia, Sickle Cell Disease Past Surgical History Past Surgical History: Reports: Cholecystectomy, Mastectomy - DOUBLE, NO NEED TO AVOID ARM, Other - History of surgery for vulvar and colon cancer, currently cancer free Denies: Amputation, Hysterectomy, Pacemaker Social History Information Source: Patient Lives with: Family Smoking Status: Current Every Day Smoker Cigarettes Packs Per Day: 0.8 Frequency of Alcohol Use: Rare Hx Recreational Drug Use: Yes Drugs: Marijuana Hx Prescription Drug Abuse: No - Advance Directive Resuscitation Status: Full Code Family History Family History: CAD Parental Family History Reviewed: Yes Children Family History Reviewed: Yes Sibling(s) Family History Reviewed.: Yes Medication/Allergy Home Medications: Albuterol Sulfate [Proair Hfa Inhalation Aerosol 8.5 gm Mdi] 1 puff IH ASDIR PRN 05/18/19 Arformoterol Tartrate [Brovana Inhalation Solution 15 mcg/2 mL] 1 vial IH RTBID 05/18/19 Ascorbic Acid [Vitamin C] 1,000 mg PO QAM 05/18/19 Aspirin [Ecotrin 81 mg EC Tablet] 81 mg PO QPM 05/18/19 Budesonide [Pulmicort Neb 0.5 mg/2 ml Ampul] 0.5 mg NEB RTBID 05/18/19 Cholecalciferol (Vitamin D3) [Vitamin D3] 2,000 unit PO QPM 05/18/19 Citalopram Hydrobromide [Celexa 20 mg Tablet] 25 mg PO DAILY 05/18/19 Cyanocobalamin (Vitamin B-12) [Vitamin B-12] 1,000 mcg PO DAILY 05/18/19 Docusate Sodium [Stool Softener] 100 mg PO BID 05/18/19 Furosemide [Lasix 40 mg Tablet] 40 mg PO DAILY 05/18/19 Inuinkue-Pmgpdev-Awly 149-Hyal [Glucosamine Chondroitin Tablet] 1 each PO BID 05/18/19 Guaifenesin [Mucinex] 600 mg PO BID 05/18/19 Losartan Potassium [Cozaar 25 mg Tablet] 25 mg PO QAM 05/18/19 Multivitamin [One-A-Day Essential] 1 each PO QAM 05/18/19 Naproxen Sodium 600 mg PO BID 05/18/19 Nortriptyline HCl [Pamelor 25 Mg Capsule] 25 mg PO QPM 05/18/19 [place]-3 Fatty Acids/Fish Oil [[place] 3 Fish Oil Softgel] 1 each PO QPM 05/18/19 Pravastatin Sodium [Pravachol] 40 mg PO QPM 05/18/19 Roflumilast [Daliresp] 250 mcg PO BID 05/18/19 Selenium [Selenimin] 600 mcg PO BID 05/18/19 Tamsulosin HCl [Flomax 0.4 mg Cap.sr] 0.4 mg PO QAM 05/18/19 Thyroid (Pork) [[place] Thyroid 60 Mg Tablet] 150 mg PO Q2D 05/18/19 Thyroid,Pork [[place] Thyroid] 120 mg PO Q2D 05/18/19 Tiotropium [place] [Spiriva Handihaler 5 Cap/Kit (18 Mcg/Cap)] 1 cap IH DAILY 05/18/19 Ubidecarenone [Co Q-10] 100 mg PO QAM 05/18/19 Vitamin E 1,000 unit PO QPM 05/18/19 Allergies/Adverse Reactions: doxycycline [Doxycycline] Allergy (Severe, Verified 03/27/17 13:49) VOMITING Penicillins Allergy (Verified 03/27/17 13:49) Anaphylaxis Review of Systems Constitutional: ABSENT: chills, fever(s), headache(s), weight gain, weight loss Eyes: ABSENT: visual disturbances Ears: ABSENT: hearing changes Cardiovascular: ABSENT: chest pain, dyspnea on exertion, edema, orthropnea, palpitations Respiratory: ABSENT: cough, hemoptysis Gastrointestinal: ABSENT: abdominal pain, constipation, diarrhea, hematemesis, hematochezia, nausea, vomiting Genitourinary: ABSENT: dysuria, hematuria Musculoskeletal: ABSENT: joint swelling Integumentary: ABSENT: rash, wounds Neurological: ABSENT: abnormal gait, abnormal speech, confusion, dizziness, focal weakness, syncope Psychiatric: ABSENT: anxiety, depression, homidical ideation, suicidal ideation Endocrine: ABSENT: cold intolerance, heat intolerance, polydipsia, polyuria Hematologic/Lymphatic: ABSENT: easy bleeding, easy bruising Physical Exam Vital Signs: Temp Pulse Resp BP Pulse Ox 98.2 F 69 15 108/47 L 95 05/27/19 12:00 05/27/19 12:00 05/27/19 12:00 05/27/19 12:00 05/27/19 12:00 Intake & Output 05/26/19 05/27/19 05/28/19 06:59 06:59 06:59 Intake Total 3072 3244 1000 Output Total 6450 2450 Balance -0268 794 1000 Weight 96.1 kg 94.8 kg General appearance: PRESENT: no acute distress, well-developed, well-nourished Head exam: PRESENT: atraumatic, normocephalic Eye exam: PRESENT: conjunctiva pink, EOMI, PERRLA. ABSENT: scleral icterus Ear exam: PRESENT: normal external ear exam Mouth exam: PRESENT: moist, tongue midline Neck exam: ABSENT: carotid bruit, JVD, lymphadenopathy, thyromegaly Respiratory exam: PRESENT: clear to auscultation maria a. ABSENT: rales, rhonchi, wheezes Cardiovascular exam: PRESENT: RRR. ABSENT: diastolic murmur, rubs, systolic murmur Pulses: PRESENT: normal dorsalis pedis pul Vascular exam: PRESENT: normal capillary refill GI/Abdominal exam: PRESENT: hypoactive bowel sounds, soft, other - NG tube in place. ABSENT: distended, guarding, mass, organolmegaly, rebound, tenderness Rectal exam: PRESENT: deferred Extremities exam: PRESENT: full ROM. ABSENT: calf tenderness, clubbing, pedal edema Neurological exam: PRESENT: alert, awake, oriented to person, oriented to place, oriented to time, oriented to situation, CN II-XII grossly intact. ABSENT: motor sensory deficit Psychiatric exam: PRESENT: appropriate affect, normal mood. ABSENT: homicidal ideation, suicidal ideation Skin exam: PRESENT: dry, intact, warm. ABSENT: cyanosis, rash Results Laboratory Results: 05/26/19 11:20 05/27/19 07:30 05/26/19 05/27/19 05/27/19 17:15 05:10 05:10 Sodium Cancelled Potassium 3.4 L Cancelled Chloride Cancelled Carbon Dioxide Cancelled Anion Gap Cancelled BUN Cancelled Creatinine Cancelled Est GFR ( Amer) Cancelled Est GFR (Non-Af Amer) Cancelled Glucose Cancelled Calcium Cancelled Phosphorus 4.5 Prealbumin 9.5 L 05/27/19 07:30 Sodium 136.3 L Potassium 3.8 Chloride 102 Carbon Dioxide 28 Anion Gap 6 BUN 13 Creatinine 0.54 Est GFR ( Amer) > 60 Est GFR (Non-Af Amer) Glucose 97 Calcium 7.9 L Phosphorus Prealbumin Impressions: Abdomen/Pelvis CT 05/18/19 17:52 IMPRESSION: Small bowel obstruction with loops in the mid abdomen measuring 4.7 cm, transition point appears to be in the right mid abdomen. Moderate inflammatory changes - free fluid. Chest X-Ray 05/19/19 13:12 IMPRESSION: 1. LIFE LINES APPEAR TO BE IN APPROPRIATE POSITION. 2. LINEAR ATELECTASIS AND/OR SCARRING IN THE LUNG BASES. CANNOT EXCLUDE EARLY PNEUMONIA IN THE LEFT LUNG BASE. Abdomen X-Ray 05/22/19 00:00 IMPRESSION: 1. Markedly distended small bowel loops in the upper abdomen. While this could reflect postoperative ileus, there is essentially no gas seen distally and persistent or recurrent small bowel obstruction is in the differential. Nasogastric tube appears to be appropriately located. Interventional Vascular Procedure 05/24/19 00:00 IMPRESSION: Please see combined report for performance of procedure and radiologic supervision and interpretation. PICC Line Insertion 05/24/19 00:00 IMPRESSION: SUCCESSFUL PLACEMENT OF A 5 FR DUAL LUMEN 38 CM PICC IN THE LEFT BASILIC VEIN. KUB X-Ray 05/25/19 15:05 IMPRESSION: Possible persistent ileus. NG tube placement as described. Assessment and Plan - Diagnosis (1) Small bowel obstruction Is this a current diagnosis for this admission?: Yes Plan: 05/27/2019-status post small bowel resection. Patient with NG tube in place. Patient having hypoactive bowel sounds and did have a stool this morning. Dr. Sykes continue to follow. Patient on TPN will await his directions for removal of NG tube and feeding patient. (2) Vomiting and diarrhea Is this a current diagnosis for this admission?: Yes Plan: 05/27/2019-stable at this time continue to follow (3) Anemia Is this a current diagnosis for this admission?: Yes Plan: 05/27/2019-chronic stable (4) Tobacco abuse Is this a current diagnosis for this admission?: Yes Plan: -continue to educate about these positive benefits of smoking cessation - Time Time Spent with patient: 15-24 minutes - Inpatient Certification Based on my medical assessment, after consideration of the patient's comorbidities, presenting symptoms, or acuity I expect that the services needed warrant INPATIENT care.: Yes I certify that my determination is in accordance with my understanding of Medicare's requirements for reasonable and necessary INPATIENT services [42 CFR 412.3e].: Yes Medical Necessity: Other - IV fluids, NG tube
[2019-05-27] MEDS: MORPHINE SULFATE 10 MG/ML INJ IV PRN (13:13)
[2019-05-28] MEDS: INSULIN REG, HUMAN 100 UNIT/ML 3 ML VIAL (PYX) SUBCUT SCH ×2 (00:31→06:42)
[2019-05-28] MEDS: ONDANSETRON HCL INJ/PF 4 MG/2 ML SDV IV PRN ×3 (01:56→18:21)
[2019-05-28] MEDS: AMINO ACIDS 5 %/DEXTROSE 20 % 1,000 ML IV PRN (04:29)
[2019-05-28] MEDS: NORMAL SALINE 1000 ML 1,000 ML IV PRN ×2 (04:29→18:21)
[2019-05-28] MEDS: HEPARIN SOD (PORCINE) 5,000 UNIT/ML 1 ML VIAL SUBCUT SCH ×3 (05:21→21:23)
--- NOTE | 2019-05-28 07:38 | PDOC PROGRESS REPORT ---
Subjective Progress Note for:: 05/28/19 Subjective:: 05/28/2019-no complaints this a.m. Reason For Visit: SMALL BOWEL OBSTRUCTION Physical Exam Vital Signs: Temp Pulse Resp BP Pulse Ox 98.4 F 84 18 123/57 L 93 05/28/19 00:00 05/28/19 00:00 05/28/19 00:00 05/28/19 00:00 05/28/19 00:08 Intake & Output 05/27/19 05/28/19 05/29/19 06:59 06:59 06:59 Intake Total 3244 3600 Output Total 2450 825 Balance 794 2775 Weight 94.8 kg 100.6 kg General appearance: PRESENT: no acute distress, well-developed, well-nourished Head exam: PRESENT: atraumatic, normocephalic Eye exam: PRESENT: conjunctiva pink, EOMI, PERRLA. ABSENT: scleral icterus Ear exam: PRESENT: normal external ear exam Mouth exam: PRESENT: moist, tongue midline Neck exam: ABSENT: carotid bruit, JVD, lymphadenopathy, thyromegaly Respiratory exam: PRESENT: clear to auscultation maria a. ABSENT: rales, rhonchi, wheezes Cardiovascular exam: PRESENT: RRR. ABSENT: diastolic murmur, rubs, systolic murmur Pulses: PRESENT: normal dorsalis pedis pul Vascular exam: PRESENT: normal capillary refill GI/Abdominal exam: PRESENT: hypoactive bowel sounds, soft. ABSENT: distended, guarding, mass, organolmegaly, rebound, tenderness Rectal exam: PRESENT: deferred Extremities exam: PRESENT: full ROM. ABSENT: calf tenderness, clubbing, pedal edema Neurological exam: PRESENT: alert, awake, oriented to person, oriented to place, oriented to time, oriented to situation, CN II-XII grossly intact. ABSENT: motor sensory deficit Psychiatric exam: PRESENT: appropriate affect, normal mood. ABSENT: homicidal ideation, suicidal ideation Skin exam: PRESENT: dry, intact, warm. ABSENT: cyanosis, rash Results Laboratory Results: 05/26/19 11:20 05/27/19 07:30 05/27/19 07:30 Sodium 136.3 L Potassium 3.8 Chloride 102 Carbon Dioxide 28 Anion Gap 6 BUN 13 Creatinine 0.54 Est GFR ( Amer) > 60 Glucose 97 Calcium 7.9 L Impressions: Abdomen/Pelvis CT 05/18/19 17:52 IMPRESSION: Small bowel obstruction with loops in the mid abdomen measuring 4.7 cm, transition point appears to be in the right mid abdomen. Moderate inflammatory changes - free fluid. Chest X-Ray 05/19/19 13:12 IMPRESSION: 1. LIFE LINES APPEAR TO BE IN APPROPRIATE POSITION. 2. LINEAR ATELECTASIS AND/OR SCARRING IN THE LUNG BASES. CANNOT EXCLUDE EARLY PNEUMONIA IN THE LEFT LUNG BASE. Abdomen X-Ray 05/22/19 00:00 IMPRESSION: 1. Markedly distended small bowel loops in the upper abdomen. While this could reflect postoperative ileus, there is essentially no gas seen distally and persistent or recurrent small bowel obstruction is in the differential. Nasogastric tube appears to be appropriately located. Interventional Vascular Procedure 05/24/19 00:00 IMPRESSION: Please see combined report for performance of procedure and radiologic supervision and interpretation. PICC Line Insertion 05/24/19 00:00 IMPRESSION: SUCCESSFUL PLACEMENT OF A 5 FR DUAL LUMEN 38 CM PICC IN THE LEFT BASILIC VEIN. KUB X-Ray 05/25/19 15:05 IMPRESSION: Possible persistent ileus. NG tube placement as described. Assessment and Plan - Diagnosis (1) Small bowel obstruction Is this a current diagnosis for this admission?: Yes Plan: 05/27/2019-status post small bowel resection. Patient with NG tube in place. Patient having hypoactive bowel sounds and did have a stool this morning. Dr. Tovar continue to follow. Patient on TPN will await his directions for removal of NG tube and feeding patient. 05/28/2019-improving. NG tube pulled. Hypoactive bowel sounds patient did have a bowel movement this a.m. Continue to follow (2) Vomiting and diarrhea Is this a current diagnosis for this admission?: Yes Plan: 05/27/2019-stable at this time continue to follow 05/28/2019-improved. No further vomiting or diarrhea at this time. (3) Anemia Is this a current diagnosis for this admission?: Yes Plan: 05/27/2019-chronic stable 05/28/2019-chronic, stable (4) Tobacco abuse Is this a current diagnosis for this admission?: Yes Plan: -continue to educate about these positive benefits of smoking cessation 05/28/2019-continue to educate about the benefits of smoking cessation - Time Time Spent with patient: 15-24 minutes - Inpatient Certification Based on my medical assessment, after consideration of the patient's comorbidities, presenting symptoms, or acuity I expect that the services needed warrant INPATIENT care.: Yes I certify that my determination is in accordance with my understanding of Medicare's requirements for reasonable and necessary INPATIENT services [42 CFR 412.3e].: Yes Medical Necessity: Other - IV fluids, postoperative
[2019-05-28] MEDS: IPRATROPIUM/ALBUTEROL 0.5-2.5 MG/3 ML AMPUL NEB SCH ×2 (08:37→20:04)
[2019-05-28] MEDS: NICOTINE 14 MG/24 HR PATCH.TD24 TD SCH (09:02)
[2019-05-28] MEDS: PANTOPRAZOLE SODIUM 40 MG VIAL IV SCH ×2 (09:02→21:23)
[2019-05-28] MEDS: TAMSULOSIN HCL 0.4 MG CAP.SR.24H PO SCH (09:02)
[2019-05-28] MEDS: NORMAL SALINE 10 ML SDV (SCHEDULED) IV SCH ×2 (09:03→21:24)
[2019-05-28] MEDS ORDERED: DEXTROSE 10%-WATER 1,000 ML IV PRN (09:08)
[2019-05-28] MEDS: PROMETHAZINE HCL INJ 25 MG/1 ML VIAL IV PRN (14:12)
--- NOTE | 2019-05-28 17:00 | PDOC PROGRESS REPORT ---
Subjective Progress Note for:: 05/28/19 Subjective:: At bowel movement and has been passing flatus denies any abdominal pains Tolerating clear liquids Reason For Visit: SMALL BOWEL OBSTRUCTION Physical Exam Vital Signs: Temp Pulse Resp BP Pulse Ox 98.0 F 66 17 111/57 L 96 05/28/19 12:00 05/28/19 12:00 05/28/19 12:00 05/28/19 12:00 05/28/19 12:00 Intake & Output 05/27/19 05/28/19 05/29/19 06:59 06:59 06:59 Intake Total 3244 3600 Output Total 2450 825 Balance 794 2775 Weight 94.8 kg 100.6 kg Exam: Abdomen is soft and nontender. Incision is healing well. Results Laboratory Results: 05/26/19 11:20 05/27/19 07:30 Impressions: Abdomen/Pelvis CT 05/18/19 17:52 IMPRESSION: Small bowel obstruction with loops in the mid abdomen measuring 4.7 cm, transition point appears to be in the right mid abdomen. Moderate inflammatory changes - free fluid. Chest X-Ray 05/19/19 13:12 IMPRESSION: 1. LIFE LINES APPEAR TO BE IN APPROPRIATE POSITION. 2. LINEAR ATELECTASIS AND/OR SCARRING IN THE LUNG BASES. CANNOT EXCLUDE EARLY PNEUMONIA IN THE LEFT LUNG BASE. Abdomen X-Ray 05/22/19 00:00 IMPRESSION: 1. Markedly distended small bowel loops in the upper abdomen. While this could reflect postoperative ileus, there is essentially no gas seen distally and persistent or recurrent small bowel obstruction is in the differential. Nasogastric tube appears to be appropriately located. Interventional Vascular Procedure 05/24/19 00:00 IMPRESSION: Please see combined report for performance of procedure and rad iologic supervision and interpretation. PICC Line Insertion 05/24/19 00:00 IMPRESSION: SUCCESSFUL PLACEMENT OF A 5 FR DUAL LUMEN 38 CM PICC IN THE LEFT BASILIC VEIN. KUB X-Ray 05/25/19 15:05 IMPRESSION: Possible persistent ileus. NG tube placement as described. Assessment & Plan - Diagnosis (1) Small bowel strangulated hernia Is this a current diagnosis for this admission?: Yes - Time Time Spent with patient: 15-24 minutes - Inpatient Certification Medical Necessity: Need Close Monitoring Due to Risk of Patient Decompensation, Need For IV Fluids, Need for Nebulizer Therapy and Monitoring of Response - Plan Summary Plan Summary: Increased to full liquids and advance as tolerated to soft diet Start TPN after the last bottle is consumed. We will start D10 water at 40 cc an hour for about 8 hours after stopping the TPN.
[2019-05-29] MEDS: HEPARIN SOD (PORCINE) 5,000 UNIT/ML 1 ML VIAL SUBCUT SCH ×3 (05:16→21:15)
[2019-05-29 07:24] LABS: INTERNATIONAL RATION (INR) 1.02; PROTHROMBIN TIME 13.4 SEC (11.4-15.4)
[2019-05-29 07:25] LABS: HEMATOCRIT 29.9 % (36.0-47.0); HEMOGLOBIN 10.1 g/dL (12.0-15.5); MEAN CORPUSCULAR HEMOGLOBIN 31.6 pg (27.0-33.4); MEAN CORPUSCULAR HGB CONC 33.9 g/dL (32.0-36.0); MEAN CORPUSCULAR VOLUME 93 fl (80-97); PLATELET COUNT 337 10^3/uL (150-450); RED BLOOD COUNT 3.21 10^6/uL (3.72-5.28); RED CELL DISTRIBUTION WIDTH 13.6 % (11.5-14.0); WHITE BLOOD COUNT 9.3 10^3/uL (4.0-10.5)
[2019-05-29] MEDS: IPRATROPIUM/ALBUTEROL 0.5-2.5 MG/3 ML AMPUL NEB SCH ×2 (08:04→20:04)
--- NOTE | 2019-05-29 08:05 | PDOC PROGRESS REPORT ---
Subjective Progress Note for:: 05/29/19 Subjective:: 05/28/2019-no complaints this a.m. 05/29/2019-no complaints this a.m. Reason For Visit: SMALL BOWEL OBSTRUCTION Physical Exam Vital Signs: Temp Pulse Resp BP Pulse Ox 97.5 F 74 15 101/52 L 98 05/28/19 23:50 05/28/19 23:50 05/29/19 04:33 05/28/19 23:50 05/29/19 04:33 Intake & Output 05/28/19 05/29/19 05/30/19 06:59 06:59 06:59 Intake Total 3600 1460 Output Total 825 325 Balance 2775 1135 Weight 100.6 kg 99.2 kg General appearance: PRESENT: no acute distress, well-developed, well-nourished Head exam: PRESENT: atraumatic, normocephalic Eye exam: PRESENT: conjunctiva pink, EOMI, PERRLA. ABSENT: scleral icterus Ear exam: PRESENT: normal external ear exam Mouth exam: PRESENT: moist, tongue midline Neck exam: ABSENT: carotid bruit, JVD, lymphadenopathy, thyromegaly Respiratory exam: PRESENT: clear to auscultation maria a. ABSENT: rales, rhonchi, wheezes Cardiovascular exam: PRESENT: RRR. ABSENT: diastolic murmur, rubs, systolic murmur Pulses: PRESENT: normal dorsalis pedis pul Vascular exam: PRESENT: normal capillary refill GI/Abdominal exam: PRESENT: normal bowel sounds, soft. ABSENT: distended, guarding, mass, organolmegaly, rebound, tenderness Rectal exam: PRESENT: deferred Extremities exam: PRESENT: full ROM. ABSENT: calf tenderness, clubbing, pedal edema Neurological exam: PRESENT: alert, awake, oriented to person, oriented to place, oriented to time, oriented to situation, CN II-XII grossly intact. ABSENT: motor sensory deficit Psychiatric exam: PRESENT: appropriate affect, normal mood. ABSENT: homicidal ideation, suicidal ideation Skin exam: PRESENT: dry, intact, warm. ABSENT: cyanosis, rash Results Laboratory Results: 05/29/19 05:35 05/27/19 07:30 05/29/19 05/29/19 05:35 05:35 WBC 9.3 RBC 3.21 L Hgb 10.1 L Hct 29.9 L MCV 93 MCH 31.6 MCHC 33.9 RDW 13.6 Plt Count 337 Magnesium 2.1 Triglycerides 148 Impressions: Abdomen/Pelvis CT 05/18/19 17:52 IMPRESSION: Small bowel obstruction with loops in the mid abdomen measuring 4.7 cm, transition point appears to be in the right mid abdomen. Moderate inflammatory changes - free fluid. Chest X-Ray 05/19/19 13:12 IMPRESSION: 1. LIFE LINES APPEAR TO BE IN APPROPRIATE POSITION. 2. LINEAR ATELECTASIS AND/OR SCARRING IN THE LUNG BASES. CANNOT EXCLUDE EARLY PNEUMONIA IN THE LEFT LUNG BASE. Abdomen X-Ray 05/22/19 00:00 IMPRESSION: 1. Markedly distended small bowel loops in the upper abdomen. While this could reflect postoperative ileus, there is essentially no gas seen distally and persistent or recurrent small bowel obstruction is in the differential. Nasogastric tube appears to be appropriately located. Interventional Vascular Procedure 05/24/19 00:00 IMPRESSION: Please see combined report for performance of procedure and radiologic supervision and interpretation. PICC Line Insertion 05/24/19 00:00 IMPRESSION: SUCCESSFUL PLACEMENT OF A 5 FR DUAL LUMEN 38 CM PICC IN THE LEFT BASILIC VEIN. KUB X-Ray 05/25/19 15:05 IMPRESSION: Possible persistent ileus. NG tube placement as described. Assessment and Plan - Diagnosis (1) Small bowel obstruction Is this a current diagnosis for this admission?: Yes Plan: 05/27/2019-status post small bowel resection. Patient with NG tube in place. Patient having hypoactive bowel sounds and did have a stool this morning. Dr. Tovar continue to follow. Patient on TPN will await his directions for removal of NG tube and feeding patient. 05/28/2019-improving. NG tube pulled. Hypoactive bowel sounds patient did have a bowel movement this a.m. Continue to follow 05/29/2019-sitting on side of bed eating regular diet at this time. She is having bowel movements with hypoactive bowel sounds. Will await surgical regulations for discharge (2) Vomiting and diarrhea Is this a current diagnosis for this admission?: Yes Plan: 05/27/2019-stable at this time continue to follow 05/28/2019-improved. No further vomiting or diarrhea at this time. 05/29/2019-no further vomiting or diarrhea at this time. (3) Anemia Is this a current diagnosis for this admission?: Yes Plan: 05/27/2019-chronic stable 05/28/2019-chronic, stable 05/29/2019-stable (4) Tobacco abuse Is this a current diagnosis for this admission?: Yes Plan: -continue to educate about these positive benefits of smoking cessation 05/28/2019-continue to educate about the benefits of smoking cessation 05/29/2019-continue educate about the benefits of smoking cessation - Time Time Spent with patient: 15-24 minutes - Inpatient Certification Medical Necessity: Other - Awaiting for bowel function to return
[2019-05-29] MEDS: TAMSULOSIN HCL 0.4 MG CAP.SR.24H PO SCH (09:05)
[2019-05-29] MEDS: NICOTINE 14 MG/24 HR PATCH.TD24 TD SCH (09:06)
[2019-05-29] MEDS: NORMAL SALINE 10 ML SDV (SCHEDULED) IV SCH ×2 (09:06→21:15)
[2019-05-29] MEDS: PANTOPRAZOLE SODIUM 40 MG VIAL IV SCH ×2 (09:06→21:15)
--- NOTE | 2019-05-29 11:26 | PDOC PROGRESS REPORT ---
Subjective Progress Note for:: 05/29/19 Subjective:: no pains.Having diarrhea. 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 Tolerated reg diet this breakfast for the first time Reason For Visit: SMALL BOWEL OBSTRUCTION Physical Exam Vital Signs: Temp Pulse Resp BP Pulse Ox 98.0 F 70 20 101/45 L 100 05/29/19 08:15 05/29/19 08:15 05/29/19 08:15 05/29/19 08:15 05/29/19 08:15 Intake & Output 05/28/19 05/29/19 05/30/19 06:59 06:59 06:59 Intake Total 3600 1460 Output Total 825 325 Balance 2775 1135 Weight 100.6 kg 99.2 kg Exam: mild abdominal distention. No tenderness Results Laboratory Results: 05/29/19 05:35 05/27/19 07:30 05/29/19 05/29/19 05:35 05:35 WBC 9.3 RBC 3.21 L Hgb 10.1 L Hct 29.9 L MCV 93 MCH 31.6 MCHC 33.9 RDW 13.6 Plt Count 337 Magnesium 2.1 Triglycerides 148 Impressions: Abdomen/Pelvis CT 05/18/19 17:52 IMPRESSION: Small bowel obstruction with loops in the mid abdomen measuring 4.7 cm, transition point appears to be in the right mid abdomen. Moderate inflammatory changes - free fluid. Chest X-Ray 05/19/19 13:12 IMPRESSION: 1. LIFE LINES APPEAR TO BE IN APPROPRIATE POSITION. 2. LINEAR ATELECTASIS AND/OR SCARRING IN THE LUNG BASES. CANNOT EXCLUDE EARLY PNEUMONIA IN THE LEFT LUNG BASE. Abdomen X-Ray 05/22/19 00:00 IMPRESSION: 1. Markedly distended small bowel loops in the upper abdomen. While this could reflect postoperative ileus, there is essentially no gas seen distally and persistent or recurrent small bowel obstruction is in the differential. Nasogastric tube appears to be appropriately located. Interventional Vascular Procedure 05/24/19 00:00 IMPRESSION: Please see combined report for performance of procedure and radiologic supervision and interpretation. PICC Line Insertion 05/24/19 00:00 IMPRESSION: SUCCESSFUL PLACEMENT OF A 5 FR DUAL LUMEN 38 CM PICC IN THE LEFT BASILIC VEIN. KUB X-Ray 05/25/19 15:05 IMPRESSION: Possible persistent ileus. NG tube placement as described. Assessment & Plan - Diagnosis (1) Small bowel strangulated hernia Is this a current diagnosis for this admission?: Yes - Time Time Spent with patient: 15-24 minutes - Plan Summary Plan Summary: Check stools for C Dif and if negative possible discharge tomorrow Meantime,continue PT
[2019-05-29] MEDS: ONDANSETRON HCL INJ/PF 4 MG/2 ML SDV IV PRN (11:54)
[2019-05-29] MEDS: PROMETHAZINE HCL INJ 25 MG/1 ML VIAL IV PRN (12:51)
[2019-05-29 15:50] LABS: C DIFFICILE GDH NEGATIVE (NEGATIVE)
[2019-05-29] MEDS: MORPHINE SULFATE 10 MG/ML INJ IV PRN (23:13)
[2019-05-30] MEDS: HEPARIN SOD (PORCINE) 5,000 UNIT/ML 1 ML VIAL SUBCUT SCH (05:24)
[2019-05-30 06:36] LABS: ALBUMIN 2.4 g/dL (3.5-5.0); ALKALINE PHOSPHATASE 66 U/L (38-126); ANION GAP 6 (5-19); ASPARTATE AMINO TRANSFERASE 16 U/L (14-36); BILIRUBIN,DIRECT 0.1 mg/dL (0.0-0.4); BILIRUBIN,TOTAL 0.4 mg/dL (0.2-1.3); BLOOD UREA NITROGEN 12 mg/dL (7-20); CALCIUM 8.2 mg/dL (8.4-10.2); CARBON DIOXIDE 26 mmol/L (22-30); CHLORIDE 104 mmol/L (98-107); GLUCOSE 85 mg/dL (75-110); PHOSPHORUS 3.7 mg/dL (2.5-4.5); POTASSIUM 4.7 mmol/L (3.6-5.0); TOTAL PROTEIN 4.8 g/dL (6.3-8.2)
[2019-05-30 06:43] LABS: PREALBUMIN 11.2 mg/dL (17.6-36.0)
[2019-05-30] MEDS: TAMSULOSIN HCL 0.4 MG CAP.SR.24H PO SCH (07:56)
--- NOTE | 2019-05-30 08:13 | PDOC DISCHARGE SUMMARY ---
General - Admit/Disc Date/PCP Admission Date/Primary Care Provider: 05/18/19 19:27 Discharge Date: 05/30/19 - Discharge Diagnosis (1) Small bowel obstruction Is this a current diagnosis for this admission?: Yes (2) Vomiting and diarrhea Is this a current diagnosis for this admission?: Yes (3) Anemia Is this a current diagnosis for this admission?: Yes (4) Tobacco abuse Is this a current diagnosis for this admission?: Yes - Additional Information Resuscitation Status: Full Code Discharge Diet: As Tolerated Discharge Activity: Activity As Tolerated Home Medications: Albuterol Sulfate [Proair HFA Inhalation Aerosol 8.5 gm MDI] 1 puff IH ASDIR PRN 05/18/19 Arformoterol Tartrate [Brovana Inhalation Solution 15 mcg/2 mL] 1 vial IH RTBID 05/18/19 Ascorbic Acid [Vitamin C] 1,000 mg PO QAM 05/18/19 Aspirin [Ecotrin 81 mg EC Tablet] 81 mg PO QPM 05/18/19 Budesonide [Pulmicort Neb 0.5 mg/2 ml Ampul] 0.5 mg NEB RTBID 05/18/19 Cholecalciferol (Vitamin D3) [Vitamin D3] 2,000 unit PO QPM 05/18/19 Citalopram Hydrobromide [Celexa 20 mg Tablet] 25 mg PO DAILY 05/18/19 Cyanocobalamin (Vitamin B-12) [Vitamin B-12] 1,000 mcg PO DAILY 05/18/19 Docusate Sodium [Stool Softener] 100 mg PO BID 05/18/19 Furosemide [Lasix 40 mg Tablet] 40 mg PO DAILY 05/18/19 [id number]-Yjex 149-Hyal [Glucosamine Chondroitin Tablet] 1 each PO BID 05/18/19 Guaifenesin [Mucinex] 600 mg PO BID 05/18/19 Losartan Potassium [Cozaar 25 mg Tablet] 25 mg PO QAM 05/18/19 Multivitamin [One-A-Day Essential] 1 each PO QAM 05/18/19 Naproxen Sodium 600 mg PO BID 05/18/19 Nortriptyline HCl [Pamelor 25 mg Capsule] 25 mg PO QPM 05/18/19 [place]-3 Fatty Acids/Fish Oil [[place] 3 Fish Oil Softgel] 1 each PO QPM 05/18/19 Pravastatin Sodium [Pravachol] 40 mg PO QPM 05/18/19 Roflumilast [Daliresp] 250 mcg PO BID 05/18/19 Selenium [Selenimin] 600 mcg PO BID 05/18/19 Tamsulosin HCl [Flomax 0.4 mg Cap.sr] 0.4 mg PO QAM 05/18/19 Thyroid (Pork) [[place] Thyroid 60 mg Tablet] 150 mg PO Q2D 05/18/19 Thyroid,Pork [[place] Thyroid] 120 mg PO Q2D 05/18/[address] [Spiriva Handihaler 5 Cap/Kit (18 Mcg/Cap)] 1 cap IH DAILY 05/18/19 Ubidecarenone [Co Q-10] 100 mg PO QAM 05/18/19 Vitamin E 1,000 unit PO QPM 05/18/19 History of Present Illness Patient complains of: None this a.m. History of Present Illness: JOHAN WREN is a 73 year old female who presented on 05/18/2019 with complaints of abdominal pain, nausea vomiting and diarrhea. She states that since the morning of the 911 at 1030 she suddenly began to experience pain in epigastric region which soon after moved down into her lower abdomen bilaterally radiating to the back and flank region bilaterally. She says she vomited 5 times had about 3 episodes of diarrhea. No blood was noted in either the vomitus or diarrhea. She states she had some pain similar to what she was currently having when she had a kidney and a bladder infection previously. She has had surgery for colon cancer and vulvar cancer in 2008 of breast cancer in the 70s. She was transferred from the ICU to medical surgical today and we were asked to consult. Hospital Course Hospital Course: Patient was admitted and underwent a closed loop small bowel obstruction with gangrene of the small bowel and entailing a expiratory laparotomy, lysis of adhesions, resection of small bowel and primary secondary anastomosis. Patient was hard to wean off ventilator after surgery and required a short stay in ICU. Patient was also found to have a small mid abdomen small bowel obstruction was had an NG placed at that time. Throughout the course of patient's stay patient is improved sufficiently return home. Patient at this time passing gas, having stools and eating a regular diet. Patient will follow up with surgical group in 2 weeks for suture removal and with her primary care practitioner in 1 week. Patient been educated to plan of care and is in agreement. Physical Exam Vital Signs: Temp Pulse Resp BP Pulse Ox 97.4 F 72 22 H 91/48 L 96 05/29/19 23:35 05/29/19 23:35 05/30/19 04:26 05/29/19 23:35 05/30/19 04:26 Intake & Output 05/29/19 05/30/19 05/31/19 06:59 06:59 06:59 Intake Total 1460 840 Output Total 325 Balance 1135 840 Weight 99.2 kg 98.7 kg General appearance: PRESENT: no acute distress, well-developed, well-nourished Head exam: PRESENT: atraumatic, normocephalic Eye exam: PRESENT: conjunctiva pink, EOMI, PERRLA. ABSENT: scleral icterus Ear exam: PRESENT: normal external ear exam Mouth exam: PRESENT: moist, tongue midline Neck exam: ABSENT: carotid bruit, JVD, lymphadenopathy, thyromegaly Respiratory exam: PRESENT: clear to auscultation maria a. ABSENT: rales, rhonchi, wheezes Cardiovascular exam: PRESENT: RRR. ABSENT: diastolic murmur, rubs, systolic murmur Pulses: PRESENT: normal dorsalis pedis pul Vascular exam: PRESENT: normal capillary refill GI/Abdominal exam: PRESENT: normal bowel sounds, soft, other - Mid abdominal incision. ABSENT: distended, guarding, mass, organolmegaly, rebound, tenderness Rectal exam: PRESENT: deferred Extremities exam: PRESENT: full ROM. ABSENT: calf tenderness, clubbing, pedal edema Neurological exam: PRESENT: alert, awake, oriented to person, oriented to place, oriented to time, oriented to situation, CN II-XII grossly intact. ABSENT: motor sensory deficit Psychiatric exam: PRESENT: appropriate affect, normal mood. ABSENT: homicidal ideation, suicidal ideation Skin exam: PRESENT: dry, intact, warm. ABSENT: cyanosis, rash Results Laboratory Results: 05/29/19 05:35 05/30/19 05:32 05/30/19 05:32 Sodium 135.7 L Potassium 4.7 Chloride 104 Carbon Dioxide 26 Anion Gap 6 BUN 12 Creatinine 0.71 Est GFR ( Amer) > 60 Glucose 85 Calcium 8.2 L Phosphorus 3.7 Magnesium 2.0 Total Bilirubin 0.4 AST 16 Alkaline Phosphatase 66 Total Protein 4.8 L Albumin 2.4 L Prealbumin 11.2 L Impressions: Abdomen/Pelvis CT 05/18/19 17:52 IMPRESSION: Small bowel obstruction with loops in the mid abdomen measuring 4.7 cm, transition point appears to be in the right mid abdomen. Moderate in flammatory changes - free fluid. Chest X-Ray 05/19/19 13:12 IMPRESSION: 1. LIFE LINES APPEAR TO BE IN APPROPRIATE POSITION. 2. LINEAR ATELECTASIS AND/OR SCARRING IN THE LUNG BASES. CANNOT EXCLUDE EARLY PNEUMONIA IN THE LEFT LUNG BASE. Abdomen X-Ray 05/22/19 00:00 IMPRESSION: 1. Markedly distended small bowel loops in the upper abdomen. While this could reflect postoperative ileus, there is essentially no gas seen distally and persistent or recurrent small bowel obstruction is in the differential. Nasogastric tube appears to be appropriately located. Interventional Vascular Procedure 05/24/19 00:00 IMPRESSION: Please see combined report for performance of procedure and radiologic supervision and interpretation. PICC Line Insertion 05/24/19 00:00 IMPRESSION: SUCCESSFUL PLACEMENT OF A 5 FR DUAL LUMEN 38 CM PICC IN THE LEFT BASILIC VEIN. KUB X-Ray 05/25/19 15:05 IMPRESSION: Possible persistent ileus. NG tube placement as described. Qualifiers - * PATIENT BEING DISCHARGED WITH ANY OF THE FOLLOWING DIAGNOSIS: No Acute Heart Failure - Is this a Heart Failure Patient?: No Plan Time Spent: Greater than 30 Minutes
[2019-05-30] MEDS: IPRATROPIUM/ALBUTEROL 0.5-2.5 MG/3 ML AMPUL NEB SCH (08:14)
[2019-05-30 09:33] VITALS: BP 101/48
== END 2019-05-30 11:15 | disposition home health service (06) | DRG 344 ==
LOC: ER 14:55 → EH 19:27 → 4W 21:40 → ICU 05-19 10:45 → 4S 05-27 11:47
PROVIDERS: ADMIT Surgery; ATTEND Internal Medicine
PROC: B548ZZA Ultrasonography of Superior Vena Cava, Guidance (ICD-10-PCS; 2019-05-18)
PROC: 0D9670Z Drainage of Stomach with Drainage Device, Via Natural or Artificial Opening (ICD-10-PCS; 2019-05-18)
PROC: 0DB80ZX Excision of Small Intestine, Open Approach, Diagnostic (ICD-10-PCS; principal; 2019-05-19 09:00)
PROC: 02HV33Z Insertion of Infusion Device into Superior Vena Cava, Percutaneous Approach (ICD-10-PCS; 2019-05-24)
PROC: B518ZZA Fluoroscopy of Superior Vena Cava, Guidance (ICD-10-PCS; 2019-05-24)
PROC: 3E0436Z Introduction of Nutritional Substance into Central Vein, Percutaneous Approach (ICD-10-PCS; 2019-05-24)
DX: K56.691 Other complete intestinal obstruction (principal); K55.029 Acute infarction of small intestine, extent unspecified; J96.11 Chronic respiratory failure with hypoxia; E87.3 Alkalosis; K91.30 Postprocedural intestinal obstruction, unspecified as to partial versus complete; K56.52 Intestinal adhesions [bands] with complete obstruction; J44.9 Chronic obstructive pulmonary disease, unspecified; E03.9 Hypothyroidism, unspecified; E66.9 Obesity, unspecified; M15.9 Polyosteoarthritis, unspecified; Z90.49 Acquired absence of other specified parts of digestive tract; Z99.81 Dependence on supplemental oxygen; F32.9 Major depressive disorder, single episode, unspecified; E86.1 Hypovolemia; F17.210 Nicotine dependence, cigarettes, uncomplicated; D64.9 Anemia, unspecified; I10 Essential (primary) hypertension; I25.10 Atherosclerotic heart disease of native coronary artery without angina pectoris; I95.9 Hypotension, unspecified; Z85.038 Personal history of other malignant neoplasm of large intestine; Z79.82 Long term (current) use of aspirin; Z79.899 Other long term (current) drug therapy; Z79.51 Long term (current) use of inhaled steroids; Z88.0 Allergy status to penicillin; Z88.5 Allergy status to narcotic agent; Z85.3 Personal history of malignant neoplasm of breast; Z88.1 Allergy status to other antibiotic agents; Z79.890 Hormone replacement therapy; Z90.13 Acquired absence of bilateral breasts and nipples; Z78.1 Physical restraint status
CPT/HCPCS: 00790; 36415; 36569; 71045; 74018; 74019; 74177; 76937; 80048; 80053; 81001; 82803; 82962; 83690; 83735; 84100; 84132; 84134; 84478; 85025; 85027; 85610; 87324; 87449; 88305; 88307; 94002; 94003; 94640; 94660; 94799; 96374; 96375; 99285; J0330; J0744; J1100; J1642; J1644; J1885; J2250; J2270; J2370; J2405; J2550; J2704; J2765; J2920; J3010; J3480; J3490; J7030; J7120; J7620; S0028; S0164

== ENCOUNTER → 2020-04-07 | Outpatient (CLI) | payer MEDICARE ==
[2020-04-07 09:18] LABS: ABSOLUTE BASOPHILS # (AUTO) 0.1 10^3/uL (0.0-0.2); ABSOLUTE EOSINOPHILS # (AUTO) 0.1 10^3/uL (0.0-0.6); ABSOLUTE LYMPHOCYTES (AUTO) 1.8 10^3/uL (0.5-4.7); ABSOLUTE MONOCYTES (AUTO) 0.3 10^3/uL (0.1-1.4); ABSOLUTE NEUT (AUTO) 3.4 10^3/uL (1.7-8.2); EOSINOPHILS % (AUTO) 1.9 % (0-6); HEMATOCRIT 43.9 % (36.0-47.0); HEMOGLOBIN 14.9 g/dL (12.0-15.5); LYMPHOCYTES % (AUTO) 31.9 % (13-45); MEAN CORPUSCULAR HEMOGLOBIN 30.8 pg (27.0-33.4); MEAN CORPUSCULAR VOLUME 91 fl (80-97); MONOCYTES % (AUTO) 5.9 % (3-13); PLATELET COUNT 239 10^3/uL (150-450); RED BLOOD COUNT 4.85 10^6/uL (3.72-5.28); RED CELL DISTRIBUTION WIDTH 13.6 % (11.5-14.0); SEGMENTED NEUTROPHILS % (AUTO) 59.3 % (42-78); TOTAL CELLS COUNTED % (AUTO) 100 %; WHITE BLOOD COUNT 5.7 10^3/uL (4.0-10.5)
[2020-04-07 09:36] LABS: ALBUMIN 3.8 g/dL (3.5-5.0); ALKALINE PHOSPHATASE 97 U/L (38-126); ANION GAP 5 (5-19); ASPARTATE AMINO TRANSFERASE 17 U/L (14-36); BILIRUBIN,DIRECT 0.1 mg/dL (0.0-0.4); BILIRUBIN,TOTAL 0.7 mg/dL (0.2-1.3); BLOOD UREA NITROGEN 8 mg/dL (7-20); CALCIUM 9.6 mg/dL (8.4-10.2); CARBON DIOXIDE 29 mmol/L (22-30); CHLORIDE 106 mmol/L (98-107); CHOLESTEROL 150.21 mg/dL (0-200); GLUCOSE 98 mg/dL (75-110); TOTAL PROTEIN 6.8 g/dL (6.3-8.2); TRIGLYCERIDES 94 mg/dL (<150)
[2020-04-07 09:49] LABS: DIRECT LDL 76 mg/dL (<100)
[2020-04-07 09:53] LABS: FREE T4 (FREE THYROXINE) 0.88 ng/dL (0.78-2.19)
== END ==
LOC: OD 08:11
PROVIDERS: ATTEND Family Medicine
DX: E78.5 Hyperlipidemia, unspecified (principal); E03.9 Hypothyroidism, unspecified; E87.6 Hypokalemia; Z79.899 Other long term (current) drug therapy
CPT/HCPCS: 36415; 80053; 80061; 83735; 84439; 84481; 85025

== ENCOUNTER 2020-04-12 11:11 | Day surgery (SDC) | payer MEDICARE ==
[~2020-04-12 11:11] MED LIST: CLINDAMYCIN 600 MG/D5W RTU 600 MG/50 ML RTUPB IV PRN
[2020-04-12] MEDS ORDERED: CLINDAMYCIN 600 MG/D5W RTU 600 MG/50 ML RTUPB IV ONE (12:10)
--- NOTE | 2020-04-12 12:26 | EKG REPORT ---
SEVERITY:- ABNORMAL ECG - SINUS RHYTHM VENTRICULAR PREMATURE COMPLEX INFERIOR INFARCT, AGE INDETERMINATE ANTERIOR INFARCT, AGE INDETERMINATE : Confirmed by: Karri Seals MD 12-Apr-2020 12:25:43
[2020-04-12] MEDS ORDERED: BUPIVACAINE HCL 0.25 % INJ/PF (2.5 MG/1 ML) 30 ML VIAL ONE (13:06)
[2020-04-12] MEDS ORDERED: MIDAZOLAM 2 MG/2 ML INJ ONE ×2 (13:06→13:43)
[2020-04-12] MEDS ORDERED: BUPIVACAINE INJ/PF LIPOSOME/PF 266 MG/20 ML SDV ONE (13:38)
[2020-04-12] MEDS ORDERED: FENTANYL CITRATE INJ/PF 100 MCG/2 ML AMPUL ONE (13:43)
[2020-04-12] MEDS ORDERED: PROPOFOL INJ 200 MG/20 ML VIAL IV ONE (13:44)
[2020-04-12] MEDS ORDERED: BUPIVACAINE HCL 0.5 % INJ/PF 30 ML SDV ONE (13:53)
[2020-04-12] MEDS ORDERED: OXYCODONE-ACETAMINOPHEN 5-325 MG TABLET PO PRN ×2 (14:12)
[2020-04-12] MEDS ORDERED: PROMETHAZINE HCL INJ 25 MG/1 ML VIAL IV PRN ×2 (14:12)
[2020-04-12] MEDS ORDERED: DIPHENHYDRAMINE HCL 50 MG/ML VIAL IV PRN (14:12)
[2020-04-12] MEDS ORDERED: MEPERIDINE HCL/PF INJ 25 MG/1 ML DISP.SYRIN IV PRN (14:12)
[2020-04-12] MEDS ORDERED: FENTANYL CITRATE INJ/PF 100 MCG/2 ML AMPUL IV PRN ×3 (14:12)
--- NOTE | 2020-04-12 14:44 | Operative Report ---
Nonrecallable Operative Report DATE OF SURGERY: 04/12/20 PREOPERATIVE DIAGNOSIS: incisional hernia POSTOPERATIVE DIAGNOSIS: incisional hernia OPERATION: incisional henria repair SURGEON: JERMAINE SYKES 1ST MUSEUM GUIDE: KALEE STOVER ANESTHESIA: GA TISSUE REMOVED OR ALTERED: none COMPLICATIONS: none ESTIMATED BLOOD LOSS: 0 INTRAOPERATIVE FINDINGS: see note PROCEDURE: Patient was brought to the operating awake alert in stable condition placed on the table supine position she was given IV sedation she had previously received a nerve block in preop. After adequate prep and drape and appropriate timeout site verification the procedure commenced. A midline incision was utilized in the previous scar approximately 2 cm above and 2 cm below the umbilicus. Dissection was carried down through subtenons tissue with Bovie cautery. We then reached the identifiable defect which was about the size of a half dollar. There was no significant adhesions of small bowel in the defect. We cleared the anterior fascia laterally by dissecting the subcutaneous tissue off the abdominal fascia. With Bovie cautery. The fascia was then closed primarily with interrupted placed #2 Polysorb sutures. The skin was closed with standard skin clips. Estimated blood loss was negligible. ABIMAEL Calzada was present for the entire procedure for for help with wound retraction wound closure. The patient was then transferred recovery in stable condition
[2020-04-12] MEDS ORDERED: TRAMADOL HCL 50 MG TABLET PO PRN (14:48)
--- NOTE | 2020-04-12 14:48 | Discharge Summary ---
Discharge Summary (SDC) - Discharge Final Diagnosis: Incisional hernia Date of Surgery: 04/12/20 Discharge Date: 04/12/20 - She currently Condition: Good Prescriptions: Tramadol HCl [Ultram 50 mg Tablet] 50 mg PO Q6HP PRN #40 tablet PRN Reason: Referrals: SHERMAN MCCLAIN MD [Primary Care Provider] - Discharge Diet: As Tolerated Discharge Activity: Activity As Tolerated, No Lifting Over 10 Pounds Report the Following to Your Physician Immediately: Shortness of Breath, Nausea, Vomiting, Increase in Pain
[2020-04-12 16:22] VITALS: BP 138/62
== END 2020-04-12 16:20 | disposition home or self-care (01) ==
LOC: OROUT 11:11
PROVIDERS: ATTEND Surgery
DX: K43.2 Incisional hernia without obstruction or gangrene (principal); Z03.818 Encounter for observation for suspected exposure to other biological agents ruled out; I38 Endocarditis, valve unspecified; R07.9 Chest pain, unspecified; R29.6 Repeated falls; Z85.44 Personal history of malignant neoplasm of other female genital organs; E03.9 Hypothyroidism, unspecified; G47.30 Sleep apnea, unspecified; J44.9 Chronic obstructive pulmonary disease, unspecified; R00.2 Palpitations; E27.8 Other specified disorders of adrenal gland; E06.3 Autoimmune thyroiditis; Z86.73 Personal history of transient ischemic attack (TIA), and cerebral infarction without residual deficits; Z85.3 Personal history of malignant neoplasm of breast; P00-P96 Certain conditions originating in the perinatal period; Z99.81 Dependence on supplemental oxygen; I10 Essential (primary) hypertension; F17.210 Nicotine dependence, cigarettes, uncomplicated; Z79.899 Other long term (current) drug therapy; Z79.82 Long term (current) use of aspirin; Z87.440 Personal history of urinary (tract) infections; G47.33 Obstructive sleep apnea (adult) (pediatric); Z88.5 Allergy status to narcotic agent; Z88.0 Allergy status to penicillin
CPT/HCPCS: 36415; 84132; 93005; 93010; 00752; 49560; U0003; J2250; J3490; J3010; J2704; C9290; C9803; 752; 87635